=== PATIENT | male | born 1965 | race Caucasian/White ===

== ENCOUNTER → 2017-09-05 08:58 | Outpatient (CLI) | payer OTHER, SELFPAY ==
[2017-09-05 12:02] LABS: Absolute Lymphocyte Count 2.41 X10^3/ul (0.83-4.51); Absolute Neutrophil Count 3.2 X10^3/uL (2.0-7.7); Basophil# 0.03 X10^3/uL; Basophil% 0.5 % (0-1); Eosinophil# 0.07 X10^3/uL; Eosinophils% 1.1 % (0-5); Hematocrit 44.2 % (40-54); Hemoglobin 15.6 g/dl (13.0-16.5); Lymphocyte # 2.41 X10^3/ul (4.0); Lymphocyte % 39.5 % (19-41); Mean Corp Hgb Conc 35.3 g/gl (32-36); Mean Corpuscular Hgb 30.5 pg (27.0-32.0); Mean Corpuscular Volume 86.3 fL (80-94); Mean Platelet Vol. 11.3 fl (6.2-12.0); Monocyte# 0.38 X10^3/uL; Monocyte% 6.2 % (0-10); Neutrophil % 52.5 % (47-70); Platelet Count 193 K/mm3 (150-450); RBC Distribution Width CV 11.9 % (11.6-14.6); RBC Distribution Width SD 37.7 fl (35.1-43.9); Red Blood Count 5.12 M/mm3 (4.6-6.2); White Blood Count 6.1 K/mm3 (4.4-11.0)
[2017-09-05 12:04] LABS: POSITIVE COUNT NO; POSITIVE DIFFERENTIAL NO; POSITIVE MORPHOLOGY NO
[2017-09-05 12:24] LABS: ALB/GLOB Ratio 0.9 RATIO (0.9-2.4); AST(SGOT) 15 U/L (15-37); Alanine Aminotransfer ALT/SGPT 29 U/L (16-61); Albumin, Serum 3.5 g/dL (3.2-5.0); Alkaline Phosphatase 69 U/L (45-117); Anion Gap 8 (5-15); BUN 10 mg/dL (7-18); BUN/Creat Ratio 12.7 RATIO (10-20); Calcium,Total 8.7 mg/dL (8.5-10.1); Chloride 102 mmol/L (98-107); Creatinine, Serum 0.78 mg/dL (0.70-1.30); EST Glomerular Filtration Rate 110 mL/min (>60); Est Glom Filt Rate - Afr Amer 133 mL/min (>60); Globulin 3.7 g/dL (2.2-4.2); Glucose 240 mg/dL (74-106); Potassium 3.9 mmol/L (3.5-5.1); Protein, Total 7.2 g/dL (6.4-8.2); Sodium Level 133 mmol/L (136-145); Thyroid Stim Hormone (TSH) 1.09 uIU/mL (0.358-3.74)
[2017-09-08 09:27] LABS: Hep C Antibodies <0.1 s/co ratio (0.0-0.9)
== END ==
PROVIDERS: Family Provider Family Medicine Geriatric Medicine; PCP Family Medicine Geriatric Medicine; Visit Provider Family Medicine Geriatric Medicine
DX: E11.9 Type 2 diabetes mellitus without complications (principal); E23.6 Other disorders of pituitary gland; I10 Essential (primary) hypertension; Z13.89 Encounter for screening for other disorder
CPT/HCPCS: 36415; 80053; 84403; 84443; 85025; 86803

== ENCOUNTER → 2018-05-14 10:52 | Outpatient (CLI) | payer OTHER, SELFPAY ==
[2018-05-14 13:15] LABS: Absolute Lymphocyte Count 2.72 X10^3/ul (0.83-4.51); Basophil# 0.03 X10^3/uL; Basophil% 0.4 % (0-1); Eosinophil# 0.18 X10^3/uL; Eosinophils% 2.4 % (0-5); Hematocrit 47.1 % (40-54); Hemoglobin 15.6 g/dl (13.0-16.5); Lymphocyte # 2.72 X10^3/ul (4.0); Lymphocyte % 36.4 % (19-41); Mean Corp Hgb Conc 33.1 g/gl (32-36); Mean Corpuscular Hgb 30.4 pg (27.0-32.0); Mean Corpuscular Volume 91.6 fL (80-94); Mean Platelet Vol. 11.5 fl (6.2-12.0); Monocyte# 0.49 X10^3/uL; Monocyte% 6.6 % (0-10); Neutrophil # 4.03 X10^3/uL (2.7-7.7); Neutrophil % 53.9 % (47-70); Platelet Count 218 K/mm3 (150-450); RBC Distribution Width CV 12.4 % (11.6-14.6); RBC Distribution Width SD 41.9 fl (35.1-43.9); Red Blood Count 5.14 M/mm3 (4.6-6.2); White Blood Count 7.5 K/mm3 (4.4-11.0)
[2018-05-14 13:20] LABS: POSITIVE COUNT NO; POSITIVE DIFFERENTIAL NO; POSITIVE MORPHOLOGY NO
[2018-05-14 13:40] LABS: AST(SGOT) 15 U/L (15-37); Alanine Aminotransfer ALT/SGPT 41 U/L (16-61); Albumin, Serum 3.8 g/dL (3.2-5.0); Alkaline Phosphatase 65 U/L (45-117); Anion Gap 9 (5-15); BUN 9 mg/dL (7-18); BUN/Creat Ratio 10.7 RATIO (10-20); Calcium,Total 9.1 mg/dL (8.5-10.1); Chloride 103 mmol/L (98-107); Creatinine, Serum 0.84 mg/dL (0.70-1.30); EST Glomerular Filtration Rate 101 mL/min (>60); Est Glom Filt Rate - Afr Amer 122 mL/min (>60); Glucose 125 mg/dL (74-106); Potassium 4.4 mmol/L (3.5-5.1); Protein, Total 7.8 g/dL (6.4-8.2); Sodium Level 136 mmol/L (136-145); Thyroid Stim Hormone (TSH) 0.99 uIU/mL (0.358-3.74)
== END ==
PROVIDERS: Family Provider Family Medicine Geriatric Medicine; PCP Family Medicine Geriatric Medicine; Visit Provider Family Medicine Geriatric Medicine
DX: E11.9 Type 2 diabetes mellitus without complications (principal); E23.6 Other disorders of pituitary gland; F52.8 Other sexual dysfunction not due to a substance or known physiological condition; I10 Essential (primary) hypertension
CPT/HCPCS: 36415; 80053; 84403; 84443; 85025

== ENCOUNTER → 2018-06-02 14:49 | Outpatient (CLI) | payer OTHER, SELFPAY ==
--- NOTE | 2018-06-02 15:00 | RAD_ITS ---
STUDY: X-RAY CHEST REASON FOR EXAM: Male, 52 years old. Chronic bronchitis TECHNIQUE: PA and lateral chest COMPARISON: None. FINDINGS: The lungs are clear and expanded. Normal cardiomediastinal silhouette, wilbert and pleural margins. No acute osseous or upper abdominal process. RAD/Chest PA and Lateral IMPRESSION: No acute cardiopulmonary process. Electronically Signed: Marvin Shrestha MD at 17:54 EST Tel , Service support ,
== END ==
PROVIDERS: Family Provider Family Medicine Geriatric Medicine; PCP Family Medicine Geriatric Medicine; Referring Provider Family Medicine Geriatric Medicine; Visit Provider Family Medicine Geriatric Medicine
DX: J41.0 Simple chronic bronchitis (principal); R68.83 Chills (without fever)
CPT/HCPCS: 71046; 87633

== ENCOUNTER → 2018-09-22 | Outpatient (CLI) | payer OTHER, SELFPAY ==
[2018-09-22 17:55] LABS: Absolute Lymphocyte Count 1.82 X10^3/ul (0.83-4.51); Absolute Neutrophil Count 3.6 X10^3/uL (2.0-7.7); Basophil# 0.02 X10^3/uL; Basophil% 0.3 % (0-1); Eosinophils% 1.7 % (0-5); Hematocrit 43.4 % (40-54); Hemoglobin 14.5 g/dl (13.0-16.5); Lymphocyte # 1.82 X10^3/ul (4.0); Lymphocyte % 30.4 % (19-41); Mean Corp Hgb Conc 33.4 g/gl (32-36); Mean Corpuscular Hgb 30.2 pg (27.0-32.0); Mean Corpuscular Volume 90.4 fL (80-94); Mean Platelet Vol. 11.9 fl (6.2-12.0); Monocyte# 0.48 X10^3/uL; Neutrophil # 3.55 X10^3/uL (2.7-7.7); Neutrophil % 59.4 % (47-70); POSITIVE COUNT NO; POSITIVE DIFFERENTIAL NO; Platelet Count 214 K/mm3 (150-450); RBC Distribution Width CV 12.4 % (11.6-14.6); RBC Distribution Width SD 40.7 fl (35.1-43.9)
[2018-09-22 17:56] LABS: POSITIVE MORPHOLOGY NO
[2018-09-22 18:06] LABS: ALB/GLOB Ratio 1.1 RATIO (0.9-2.4); AST(SGOT) 19 U/L (15-37); Alanine Aminotransfer ALT/SGPT 39 U/L (16-61); Albumin, Serum 3.7 g/dL (3.2-5.0); Alkaline Phosphatase 59 U/L (45-117); Anion Gap 7 (5-15); BUN 9 mg/dL (7-18); BUN/Creat Ratio 11.3 RATIO (10-20); Calcium,Total 8.6 mg/dL (8.5-10.1); Chloride 105 mmol/L (98-107); EST Glomerular Filtration Rate 108 mL/min (>60); Est Glom Filt Rate - Afr Amer 130 mL/min (>60); Globulin 3.5 g/dL (2.2-4.2); Glucose 106 mg/dL (74-106); Potassium 3.9 mmol/L (3.5-5.1); Protein, Total 7.2 g/dL (6.4-8.2); Sodium Level 137 mmol/L (136-145); Thyroid Stim Hormone (TSH) 1.35 uIU/mL (0.358-3.74)
== END | disposition home or self-care (01) ==
LOC: POLAB3 15:35
PROVIDERS: Family Provider Family Medicine Geriatric Medicine; PCP Family Medicine Geriatric Medicine; Visit Provider Family Medicine Geriatric Medicine
DX: E11.9 Type 2 diabetes mellitus without complications (principal); F52.8 Other sexual dysfunction not due to a substance or known physiological condition; I10 Essential (primary) hypertension
CPT/HCPCS: 36415; 80053; 84403; 84443; 85025

== ENCOUNTER 2019-03-09 08:06 | Emergency (ER) | payer OTHER, SELFPAY ==
[2019-03-09 08:07] VITALS: BP 152/100; PULSE 85; RESP 20; TEMP 36.8; O2SAT 91; BMI 39.3
--- NOTE | 2019-03-09 08:11 | RAD_ITS ---
STUDY: X-RAY CHEST REASON FOR EXAM: Male, 53 years old. Pain following a fall. TECHNIQUE: Single AP portable view of the chest. COMPARISON: Comparison is made with prior study dated May 25, 2018. FINDINGS: The lungs are clear and expanded. There is no demonstrated pleural abnormality. Normal size heart. Normal mediastinum and wilbert. Normal visualized pulmonary arteries. Normal visualized aortic arch and descending thoracic aorta. Normal visualized thoracic spine. Normal visualized ribs, clavicles, and shoulders. There is no demonstrated abnormality of the visualized soft tissue structures of the upper abdomen. RAD/Chest 1 View (Portable) IMPRESSION: Normal x-ray examination of the chest. Electronically Signed: Arnoldo Saldana, at 9:14 EST , Service support ,
--- NOTE | 2019-03-09 08:11 | RAD_ITS ---
STUDY: X-RAY - PELVIS REASON FOR EXAM: Male, 53 years old. History of a 20 foot fall. TECHNIQUE: One view of the pelvis was obtained. COMPARISON: None. FINDINGS: There is a non-specific bowel gas pattern. Normal visualized soft tissue structures. Normal bilateral iliac wings, sacroiliac joints and visualized sacrum. Normal visualized bilateral superior and inferior pubic rami. Normal pubic symphysis. Normal ischial tuberosities. Normal visualized right femoral head. Normal right acetabulum. Normal right hip joint. Normal visualized left femoral head. Normal left acetabulum. Normal left hip joint. RAD/Pelvis 1 or 2 Views IMPRESSION: Normal x-ray examination of the pelvis. Electronically Signed: Arnoldo Saldana, at 9:15 EST , Service support ,
--- NOTE | 2019-03-09 08:14 | NURSING ---
CALLED [facility], SENT TO ER. DR MONTOYA FOR DR SCHILLING
--- NOTE | 2019-03-09 08:20 | ED.VIS.INJ ---
History of Present Illness Chief Complaint: Trauma Informant: Patient Onset: Today Mechanism/Context: Fall, Work Related Quality of Pain: Sharp Current Severity: Severe Maximum Severity: Severe Associated Symptoms: Inability to ambulate Narrative: She is a 53-year-old male with history of diabetes mellitus and hypertension presenting after a fall. Patient was on approximately 20 foot ladder at [employer] where he works when the ladder gave out and he fell to the ground. Patient states he landed on his left foot and then onto his left side. He tried to catch himself with his left hand. Patient is left-hand dominant. He did not hit his head and denies any loss of consciousness. Patient is consent complaining of pain of his foot and wrist. Patient was brought immediately to [facility] emergency room. He did not receive any medications prior to arrival. Patient states he does have chronic low back pain is not having any significant pain at this time. He denies any other complaints. Tetanus Immunization: Unknown Prior similar symptoms: No Past Medical History - Allergies and Home Meds Allergies/Adverse Reactions: Allergies No Known Allergies Allergy (Verified 03/09/19 08:15) Primary Care Physician: Gagan Chin Chi, MD [Primary Care Provider] - Past Medical History: - - Hypertension diabetes mellitus Smoking Status: Never smoker Review of Systems All systems negative except as indicated Musculoskeletal: Reports: Arthralgias, Extremity Pain - Left foot, left wrist Physical Exam Vital Signs/Narrative: Vital Signs Temp Pulse Resp BP Pulse Ox 03/09/19 08:07 98.3 F 85 20 H 152/100 H 91 Inital Vital Signs reviewed: Yes General: Well nourished, Well developed, Obese Head: Normocephalic, Atraumatic Eyes: Perrl, EOMI ENT: TM's clear, No hemotympanum or drainage, No trauma, - - No malocclusion. Negative for: Nasal septal hematoma Neck: Nontender, Full ROM. Negative for: Spinal Tenderness, Paraspinal Tenderness Cardiovascular: Regular rate, Regular rhythm, No murmurs Respiratory: No distress, CTA bilaterally, Chest nontender Abdomen: Soft, Nontender, Nondistended, Normal bowel sounds. Negative for: Guarding, Rebound tenderness Back: Nontender, - - No midline tenderness, no step-off sign Extremeties: Deformity of the left wrist with preserved capillary refill, radial pulse and movement of the hand. Tenderness palpation of the left calcaneus with no obvious deformity, normal DP pulses and capillary refill of the foot. No other obvious bony deformity or trauma Skin: Normal color, No rash. Negative for: Trauma Neurological: Alert, Oriented x3, Cranial nerves II-XII grossly intact, Normal Strength, Normal Sensation, - - GCS 15 Psychological: Normal affect, Agitated - Glascow Coma Scale Eye Opening: Spontaneous Motor: Obeys Commands Verbal: Oriented Coma Scale Total: 15 Diagnostic/Tx/Re-eval - Medical Decision Making He was evaluated for trauma by mechanism. He had approximately 20 foot fall. Patient is hemodynamically stable in the emergency room. He is given IV fluids, pain medication and nausea medication. Chest x-ray and pelvis x-ray are obtained emergently. He does have an obvious deformity of the left wrist. In addition with landing on his left heel there is concern for calcaneus fracture as well as lumbar spine injury. As patient has normal consciousness and no loss of consciousness I believe head CT and C-spine can be performed at [facility]. Patient will be transferred to a trauma center. Patient states he would prefer to go to [facility] emergency room. Discussed with Dr. Pabon who accepts the patient. Patient will go by ground. Patient agreeable with this. ED Disposition - Plan for ED Patient: Disposition: [facility] Diagnosis: Fall, Left wrist injury, Injury of foot, left Referrals: Gagan Chin Chi, MD [Primary Care Provider] -
[2019-03-09] MEDS: 0.9% Normal Saline 1,000 ML 999 ML IV (08:23)
[2019-03-09] MEDS: Ondansetron 4 MG/2 ML Vial IV (08:23)
[2019-03-09] MEDS: morphine 8 MG/ML Syringe IV (08:23)
[2019-03-09] MEDS: HYDROmorphone 1 MG/ML Syringe IV (08:39)
[2019-03-09 08:52] VITALS: BP 156/72; PULSE 88; RESP 20; O2SAT 92
== END 2019-03-09 08:59 | disposition short-term general hospital (02) ==
PROVIDERS: Emergency Provider Emergency Medicine; Family Provider Family Medicine Geriatric Medicine; PCP Family Medicine Geriatric Medicine
DX: S69.92XA Unspecified injury of left wrist, hand and finger(s), initial encounter (principal); S99.922A Unspecified injury of left foot, initial encounter; M21.932 Unspecified acquired deformity of left forearm; W11.XXXA Fall on and from ladder, initial encounter; Y93.9 Activity, unspecified; Y92.9 Unspecified place or not applicable; E66.9 Obesity, unspecified; E11.9 Type 2 diabetes mellitus without complications; M54.5 Low back pain; G89.29 Other chronic pain; I10 Essential (primary) hypertension
CPT/HCPCS: 71045; 72170; 96361; 96374; 96375; 99285; J7030; J2405

== ENCOUNTER → 2019-03-17 16:35 | Outpatient (CLI) | payer OTHER, SELFPAY ==
[2019-03-09 08:07] VITALS: BMI 39.3
== END ==
PROVIDERS: Family Provider Family Medicine Geriatric Medicine; PCP Family Medicine Geriatric Medicine; Visit Provider Family Medicine Geriatric Medicine
DX: F52.8 Other sexual dysfunction not due to a substance or known physiological condition (principal)
CPT/HCPCS: 36415; 84403

== ENCOUNTER → 2019-10-01 16:38 | Outpatient (CLI) | payer OTHER, SELFPAY ==
[2019-10-01 18:08] LABS: Absolute Lymphocyte Count 2.55 X10^3/uL (0.83-4.51); Absolute Neutrophil Count 4.2 X10^3/uL (2.0-7.7); Basophil# 0.05 X10^3/uL; Basophil% 0.7 % (0-1); Eosinophil# 0.14 X10^3/uL; Eosinophils% 1.8 % (0-5); Hematocrit 43.1 % (40-54); Hemoglobin 14.2 g/dL (13.0-16.5); Lymphocyte # 2.55 X10^3/ul (4.0); Lymphocyte % 33.6 % (19-41); Mean Corp Hgb Conc 32.9 g/dL (32-36); Mean Corpuscular Hgb 30.5 pg (27.0-32.0); Mean Corpuscular Volume 92.5 fL (80-94); Mean Platelet Vol. 11.4 fl (6.2-12.0); Monocyte# 0.58 X10^3/uL; Monocyte% 7.7 % (0-10); NRBC Flagged by Analyzer 0 % (0-5); Neutrophil # 4.23 X10^3/uL (2.7-7.7); Neutrophil % 55.8 % (47-70); Platelet Count 216 K/mm3 (150-450); RBC Distribution Width CV 12.3 % (11.6-14.6); RBC Distribution Width SD 42.1 fl (35.1-43.9); Red Blood Count 4.66 M/mm3 (4.6-6.2); White Blood Count 7.6 K/mm3 (4.4-11.0)
[2019-10-01 19:09] LABS: AST(SGOT) 12 U/L (15-37); Alanine Aminotransfer ALT/SGPT 46 U/L (16-61); Albumin, Serum 3.5 g/dL (3.2-5.0); Alkaline Phosphatase 64 U/L (45-117); Anion Gap 8 (5-15); BUN 8 mg/dL (7-18); BUN/Creat Ratio 10.3 RATIO (10-20); Chloride 106 mmol/L (98-107); Creatinine, Serum 0.77 mg/dL (0.70-1.30); EST Glomerular Filtration Rate 111 mL/min (>60); Est Glom Filt Rate - Afr Amer 134 mL/min (>60); Globulin 3.5 g/dL (2.2-4.2); Glucose 169 mg/dL (74-106); PSA,Total - Annual Screen 0.52 ng/mL (0.00-4.00); Potassium 4.2 mmol/L (3.5-5.1); Sodium Level 137 mmol/L (136-145); Thyroid Stim Hormone (TSH) 1.29 uIU/mL (0.358-3.74)
== END ==
PROVIDERS: PCP Family Medicine Geriatric Medicine; Visit Provider Family Medicine Geriatric Medicine
DX: E11.9 Type 2 diabetes mellitus without complications (principal); E23.6 Other disorders of pituitary gland; I10 Essential (primary) hypertension; Z12.5 Encounter for screening for malignant neoplasm of prostate
CPT/HCPCS: 36415; 80053; 84153; 84403; 84443; 85025; G0103

== ENCOUNTER → 2020-03-17 17:51 | Outpatient (CLI) | payer OTHER, SELFPAY | PROVIDERS: PCP Family Medicine Geriatric Medicine; Referring Provider Family Medicine Geriatric Medicine; Visit Provider Family Medicine Geriatric Medicine | DX: R06.89 Other abnormalities of breathing (principal) | CPT/HCPCS: 87633; 87635; C9803; U0003 ==

== ENCOUNTER 2021-05-09 14:33 | Outpatient (CLI) | payer OTHER, SELFPAY ==
[2021-05-09 16:39] LABS: Absolute Lymphocyte Count 1.84 X10^3/uL (0.83-4.51); Absolute Neutrophil Count 2.1 X10^3/uL (2.0-7.7); Basophil# 0.02 X10^3/uL; Basophil% 0.5 % (0-1); Eosinophil# 0.04 X10^3/uL; Eosinophils% 0.9 % (0-5); Hematocrit 46.6 % (40-54); Hemoglobin 15.7 g/dL (13.0-16.5); Lymphocyte # 1.84 X10^3/ul (0.83-4.51); Lymphocyte % 41.9 % (19-41); Mean Corp Hgb Conc 33.7 g/dL (32-36); Mean Corpuscular Hgb 30.1 pg (27.0-32.0); Mean Corpuscular Volume 89.4 fL (80-94); Monocyte# 0.34 X10^3/uL; Monocyte% 7.7 % (0-10); NRBC Flagged by Analyzer 0 % (0-5); Neutrophil # 2.14 X10^3/uL (2.7-7.7); Neutrophil % 48.8 % (47-70); Platelet Count 205 K/mm3 (150-450); RBC Distribution Width CV 11.7 % (11.6-14.6); RBC Distribution Width SD 38.1 fl (35.1-43.9); Red Blood Count 5.21 M/mm3 (4.6-6.2); White Blood Count 4.4 K/mm3 (4.4-11.0)
[2021-05-09 17:00] LABS: ALB/GLOB Ratio 0.8 RATIO (0.9-2.4); AST(SGOT) 16 U/L (15-37); Alanine Aminotransfer ALT/SGPT 36 U/L (16-61); Albumin, Serum 3.6 g/dL (3.2-5.0); Alkaline Phosphatase 89 U/L (45-117); Anion Gap 8 (5-15); BUN 14 mg/dL (7-18); BUN/Creat Ratio 14.7 RATIO (10-20); Calcium,Total 9.4 mg/dL (8.5-10.1); Chloride 98 mmol/L (98-107); Creatinine, Serum 0.95 mg/dL (0.70-1.30); EST Glomerular Filtration Rate 87 mL/min (>60); Est Glom Filt Rate - Afr Amer 105 mL/min (>60); Globulin 4.5 g/dL (2.2-4.2); Glucose 347 mg/dL (74-106); PSA,Total - Annual Screen 0.78 ng/mL (0.00-4.00); Potassium 4.5 mmol/L (3.5-5.1); Protein, Total 8.1 g/dL (6.4-8.2); Sodium Level 135 mmol/L (136-145); Thyroid Stim Hormone (TSH) 1.35 uIU/mL (0.358-3.74)
== END 2021-05-09 23:59 | disposition short-term general hospital (02) ==
LOC: POLAB3 14:35
PROVIDERS: PCP Family Medicine Geriatric Medicine; Visit Provider Family Medicine Geriatric Medicine
DX: E11.9 Type 2 diabetes mellitus without complications (principal); E23.6 Other disorders of pituitary gland; I10 Essential (primary) hypertension; Z12.5 Encounter for screening for malignant neoplasm of prostate
CPT/HCPCS: 36415; 80053; 84153; 84403; 84443; 85025; G0103

== ENCOUNTER → 2021-08-30 | Outpatient (CLI) | payer OTHER, SELFPAY ==
[2021-08-30 11:59] LABS: Absolute Lymphocyte Count 1.95 X10^3/uL (0.83-4.51); Absolute Neutrophil Count 3.5 X10^3/uL (2.0-7.7); Basophil# 0.05 X10^3/uL; Basophil% 0.8 % (0-1); Eosinophil# 0.13 X10^3/uL; Eosinophils% 2.2 % (0-5); Hematocrit 43.3 % (40-54); Hemoglobin 15.1 g/dL (13.0-16.5); Lymphocyte # 1.95 X10^3/ul (0.83-4.51); Lymphocyte % 32.6 % (19-41); Mean Corp Hgb Conc 34.9 g/dL (32-36); Mean Corpuscular Hgb 31.1 pg (27.0-32.0); Mean Corpuscular Volume 89.1 fL (80-94); Mean Platelet Vol. 11.6 fl (6.2-12.0); Monocyte# 0.35 X10^3/uL; Monocyte% 5.9 % (0-10); NRBC Flagged by Analyzer 0 % (0-5); Neutrophil # 3.48 X10^3/uL (2.7-7.7); Neutrophil % 58.2 % (47-70); Platelet Count 207 K/mm3 (150-450); RBC Distribution Width CV 11.6 % (11.6-14.6); RBC Distribution Width SD 37.2 fl (35.1-43.9); Red Blood Count 4.86 M/mm3 (4.6-6.2)
[2021-08-30 12:34] LABS: AST(SGOT) 15 U/L (15-37); Alanine Aminotransfer ALT/SGPT 33 U/L (16-61); Albumin, Serum 3.6 g/dL (3.2-5.0); Alkaline Phosphatase 78 U/L (45-117); Anion Gap 9 (5-15); BUN 9 mg/dL (7-18); BUN/Creat Ratio 9.1 RATIO (10-20); Calcium,Total 8.6 mg/dL (8.5-10.1); Chloride 98 mmol/L (98-107); Creatinine, Serum 0.99 mg/dL (0.70-1.30); EST Glomerular Filtration Rate 83 mL/min (>60); Est Glom Filt Rate - Afr Amer 100 mL/min (>60); Globulin 3.6 g/dL (2.2-4.2); Glucose 459 mg/dL (74-106); Potassium 4.2 mmol/L (3.5-5.1); Protein, Total 7.2 g/dL (6.4-8.2); Sodium Level 134 mmol/L (136-145); Thyroid Stim Hormone (TSH) 1.35 uIU/mL (0.358-3.74)
== END | disposition home or self-care (01) ==
LOC: POLAB3 10:58
PROVIDERS: PCP Family Medicine Geriatric Medicine; Visit Provider Family Medicine Geriatric Medicine
DX: E11.9 Type 2 diabetes mellitus without complications (principal); E23.6 Other disorders of pituitary gland; I10 Essential (primary) hypertension
CPT/HCPCS: 36415; 80053; 84403; 84443; 85025

== ENCOUNTER → 2022-06-07 | Outpatient (CLI) | payer OTHER, SELFPAY ==
[2022-06-07 17:15] LABS: Absolute Lymphocyte Count 2.39 X10^3/uL (0.83-4.51); Absolute Neutrophil Count 3.8 X10^3/uL (2.0-7.7); Basophil# 0.04 X10^3/uL; Basophil% 0.6 % (0-1); Eosinophils% 2.9 % (0-5); Hematocrit 43.6 % (40-54); Hemoglobin 14.5 g/dL (13.0-16.5); Lymphocyte # 2.39 X10^3/ul (0.83-4.51); Lymphocyte % 34.8 % (19-41); Mean Corp Hgb Conc 33.3 g/dL (32-36); Mean Corpuscular Hgb 30.6 pg (27.0-32.0); Mean Platelet Vol. 11.4 fl (6.2-12.0); Monocyte# 0.44 X10^3/uL; Monocyte% 6.4 % (0-10); NRBC Flagged by Analyzer 0 % (0-5); Neutrophil # 3.77 X10^3/uL (2.7-7.7); Platelet Count 203 K/mm3 (150-450); RBC Distribution Width CV 12.1 % (11.6-14.6); RBC Distribution Width SD 40.8 fl (35.1-43.9); Red Blood Count 4.74 M/mm3 (4.6-6.2); White Blood Count 6.9 K/mm3 (4.4-11.0)
[2022-06-07 17:41] LABS: Vitamin D,25 Hydroxy 19.1 ng/mL
[2022-06-07 17:57] LABS: ALB/GLOB Ratio 0.8 RATIO (0.9-2.4); AST(SGOT) 13 U/L (15-37); Alanine Aminotransfer ALT/SGPT 29 U/L (16-61); Albumin, Serum 3.4 g/dL (3.2-5.0); Alkaline Phosphatase 57 U/L (45-117); Anion Gap 9 (5-15); BUN 10 mg/dL (7-18); BUN/Creat Ratio 11.3 RATIO (10-20); Calcium,Total 9.1 mg/dL (8.5-10.1); Chloride 100 mmol/L (98-107); Creatinine, Serum 0.89 mg/dL (0.70-1.30); EST Glomerular Filtration Rate 94 mL/min (>60); Est Glom Filt Rate - Afr Amer 113 mL/min (>60); Globulin 4.1 g/dL (2.2-4.2); Glucose 326 mg/dL (74-106); Potassium 4.2 mmol/L (3.5-5.1); Protein, Total 7.5 g/dL (6.4-8.2); Sodium Level 134 mmol/L (136-145); Thyroid Stim Hormone (TSH) 1.46 uIU/mL (0.358-3.74)
== END | disposition home or self-care (01) ==
LOC: POLAB3 13:14
PROVIDERS: PCP Family Medicine Geriatric Medicine; Visit Provider Family Medicine Geriatric Medicine
DX: E55.9 Vitamin D deficiency, unspecified (principal); R53.83 Other fatigue
CPT/HCPCS: 36415; 80053; 82306; 84443; 85025

== ENCOUNTER → 2023-01-22 | Outpatient (CLI) | payer OTHER, SELFPAY ==
[2023-01-22 11:59] LABS: Absolute Lymphocyte Count 2.24 X10^3/uL (0.83-4.51); Absolute Neutrophil Count 4.1 X10^3/uL (2.0-7.7); Basophil# 0.04 X10^3/uL; Basophil% 0.6 % (0-1); Eosinophil# 0.14 X10^3/uL; Hematocrit 41.4 % (40-54); Hemoglobin 13.8 g/dL (13.0-16.5); Lymphocyte # 2.24 X10^3/ul (0.83-4.51); Lymphocyte % 32.2 % (19-41); Mean Corp Hgb Conc 33.3 g/dL (32-36); Mean Corpuscular Hgb 30.4 pg (27.0-32.0); Mean Corpuscular Volume 91.2 fL (80-94); Mean Platelet Vol. 10.9 fl (6.2-12.0); Monocyte% 5.7 % (0-10); NRBC Flagged by Analyzer 0 % (0-5); Neutrophil # 4.11 X10^3/uL (2.7-7.7); Neutrophil % 59.1 % (47-70); Platelet Count 236 K/mm3 (150-450); RBC Distribution Width CV 11.9 % (11.6-14.6); RBC Distribution Width SD 39.7 fl (35.1-43.9); Red Blood Count 4.54 M/mm3 (4.6-6.2)
[2023-01-22 13:07] LABS: ALB/GLOB Ratio 0.9 RATIO (0.9-2.4); AST(SGOT) 12 U/L (15-37); Alanine Aminotransfer ALT/SGPT 31 U/L (16-61); Albumin, Serum 3.5 g/dL (3.2-5.0); Alkaline Phosphatase 70 U/L (45-117); Anion Gap 6 (5-15); BUN 15 mg/dL (7-18); BUN/Creat Ratio 13.2 RATIO (10-20); Calcium,Total 9.1 mg/dL (8.5-10.1); Chloride 101 mmol/L (98-107); Creatinine, Serum 1.14 mg/dL (0.70-1.30); EST Glomerular Filtration Rate 70 mL/min (>60); Est Glom Filt Rate - Afr Amer 85 mL/min (>60); Glucose 436 mg/dL (74-106); Potassium 4.3 mmol/L (3.5-5.1); Protein, Total 7.5 g/dL (6.4-8.2); Sodium Level 134 mmol/L (136-145)
== END | disposition home or self-care (01) ==
LOC: POLAB3 11:40
PROVIDERS: PCP Family Medicine Geriatric Medicine; Visit Provider Family Medicine Geriatric Medicine
DX: E11.65 Type 2 diabetes mellitus with hyperglycemia (principal); I10 Essential (primary) hypertension
CPT/HCPCS: 36415; 80053; 84443; 85025

== ENCOUNTER → 2023-02-19 | Outpatient (CLI) | payer OTHER, SELFPAY | END | disposition home or self-care (01) | PROVIDERS: PCP Family Medicine Geriatric Medicine; Referring Provider Family Medicine Geriatric Medicine; Visit Provider Family Medicine Geriatric Medicine | DX: R68.83 Chills (without fever) (principal) | CPT/HCPCS: 87635; 87804; 87807 ==

== ENCOUNTER → 2023-05-21 | Outpatient (CLI) | payer OTHER, SELFPAY ==
--- OUTSIDE RECORDS SUMMARY | 2023-05-21 08:47 | XMS RPT_ITS | CCD ---
Author Name Unknown Address [address] [place] [address] Organization [facility] Care Team Providers Care Assembler Name Role Phone AURORA JOE Admitting Unavailable AURORA JOE Attending Unavailable AURORA JOE Primary Care Unavailable Problems Problem Classification Problem Date Documented Da te Episodic/Chronic Immunizations and screening for infectious disease (3 sources) Encounter for screening for other viral diseases; Translations: [Encounter for screening for other viral diseases] Onset: 12-25-2019 Episodic Results Test Name Value Interpretation Reference Range Facil ity Encounters Encounter Date Encounter Type Care Provider Facility Start: 12-25-2019 End: 12-25-2019 Patient encounter procedure AURORA JOE [facility] Payers Date Payer Category Payer Unknown [id number] Unknown [id number] Summary Purpose Family History No Family History Records FoundNo Family History Records FoundNo Family History Records Found Advance Directives No Advanced Directives Records FoundNo Advanced Directives Records FoundNo Advanced Directives Records Found Additional Source Comments (unrecognized sect ion and content) No Status Records FoundNo Status Records FoundNo Status Records Found INFORMATION SOURCE (unrecogn ized section and content) DATE CREATED AUTHOR AUTHOR'S ORGANIZ ATION 12/27/2019 [facility] DATE CREATED AUTHOR AUTHOR'S ORGANIZ ATION 01/04/2020 [facility] FOR RECORDS PERTAINING TO PATIENTS WHO ARE OR HAVE BEEN ENROLLED IN A CHEMICAL DEPENDENCY/SUBSTANCEABUSE PROGRAM, SOME INFORMATION MAY BE OMITTED. This clinical summary was aggregated from multiple sources. Caution should be exercised in using it in the provision of clinical care. This summary normalizes information from multiple sources, and as a consequence, information in this document may materially change the coding, format and clinical context of patient data. In addition, data may be omitted in some cases. CLINICAL DECISIONS SHOULD BE BASED ON THE PRIMARY CLINICAL RECORDS. [employer] [facility]. provides no warranty or guarantee of the accuracy or completeness of information in this document.
[2023-05-21 12:23] LABS: Absolute Lymphocyte Count 1.69 X10^3/uL (0.83-4.51); Absolute Neutrophil Count 4.1 X10^3/uL (2.0-7.7); Basophil# 0.04 X10^3/uL; Basophil% 0.6 % (0-1); Eosinophil# 0.18 X10^3/uL; Eosinophils% 2.8 % (0-5); Hematocrit 39.4 % (40-54); Hemoglobin 12.8 g/dL (13.0-16.5); Lymphocyte # 1.69 X10^3/ul (0.83-4.51); Lymphocyte % 26.3 % (19-41); Mean Corp Hgb Conc 32.5 g/dL (32-36); Mean Corpuscular Hgb 30.2 pg (27.0-32.0); Mean Corpuscular Volume 92.9 fL (80-94); Mean Platelet Vol. 11.7 fl (6.2-12.0); Monocyte# 0.43 X10^3/uL; Monocyte% 6.7 % (0-10); NRBC Flagged by Analyzer 0 % (0-5); Neutrophil # 4.07 X10^3/uL (2.7-7.7); Neutrophil % 63.4 % (47-70); Platelet Count 247 K/mm3 (150-450); RBC Distribution Width CV 12.1 % (11.6-14.6); RBC Distribution Width SD 41.5 fl (35.1-43.9); Red Blood Count 4.24 M/mm3 (4.6-6.2); White Blood Count 6.4 K/mm3 (4.4-11.0)
[2023-05-21 13:04] LABS: AST(SGOT) 16 U/L (15-37); Alanine Aminotransfer ALT/SGPT 33 U/L (16-61); Albumin, Serum 3.6 g/dL (3.2-5.0); Alkaline Phosphatase 53 U/L (45-117); Anion Gap 7 (5-15); BUN 12 mg/dL (7-18); BUN/Creat Ratio 13.5 RATIO (10-20); Calcium,Total 9.9 mg/dL (8.5-10.1); Chloride 108 mmol/L (98-107); Cholesterol 145 mg/dL (200); Creatinine, Serum 0.89 mg/dL (0.70-1.30); EST Glomerular Filtration Rate 93 mL/min (>60); Est Glom Filt Rate - Afr Amer 112 mL/min (>60); Globulin 3.5 g/dL (2.2-4.2); Glucose 195 mg/dL (74-106); High Density Lipoprotein 50 mg/dL; PSA,Total - Annual Screen 0.93 ng/mL (0.00-4.00); Potassium 4.6 mmol/L (3.5-5.1); Protein, Total 7.1 g/dL (6.4-8.2); Sodium Level 140 mmol/L (136-145); Thyroid Stim Hormone (TSH) 1.39 uIU/mL (0.358-3.74); Triglycerides 68 mg/dL; Very Low Density Lipoprotein 14 mg/dL (5-40)
[2023-05-21 13:35] LABS: Hemoglobin A1c 8.9 % (3.8-5.6)
== END | disposition home or self-care (01) ==
LOC: BIMLAB 08:18
PROVIDERS: PCP Nurse Practitioner; Referring Provider Nurse Practitioner; Visit Provider Nurse Practitioner
DX: Z00.00 Encounter for general adult medical examination without abnormal findings (principal); E11.9 Type 2 diabetes mellitus without complications; E78.5 Hyperlipidemia, unspecified; E66.9 Obesity, unspecified; Z12.5 Encounter for screening for malignant neoplasm of prostate
CPT/HCPCS: 36415; 80053; 80061; 82043; 83036; 84153; 84439; 84443; 85025; G0103

== ENCOUNTER → 2023-06-18 | Outpatient (CLI) | payer OTHER, SELFPAY ==
--- NOTE | 2023-06-18 08:00 | ECHOCS_ITS ---
Reason For Study: Dyspnea/SOB Procedure This was a 2D Doppler, Color Flow transthoracic echocardiogram. The study was technically difficult. Contrast injection was performed. Exam performed in department. Left Ventricle Normal LV size. The estimated ejection fraction is 55 %. No evidence for diastolic dysfunction. No regional wall motion abnormalities noted. Right Ventricle Normal RV size. Normal systolic function. Atria Normal left atrium. Normal right atrium. No doppler evidence for ASD. Mitral Valve There is moderate mitral annular calcification. There is no mitral valve stenosis. No mitral valve insufficiency. Tricuspid Valve There is no tricuspid stenosis. No tricuspid valve insufficiency. Unable to estimate RV systolic pressure due to inadequate jet, pulmonary artery pressure probably normal. Aortic Valve Trisinus/trileaflet aortic valve. There is no aortic stenosis. No aortic valve insufficiency. Pulmonic Valve There is no pulmonic valvular stenosis. Trivial pulmonic valve insufficiency. Great Vessels Normal aortic root. Pericardium/Pleural No pericardial effusion. Medication 20 gauge I.V. with prn adaptor inserted into right arm. Diluted definity 2ml given slow IV push to enhance endocardial definition. MMode/2D Measurements & Calculations LVIDd: 4.6 cm IVSd: 0.98 cm Ao root diam: 4.0 cm LVIDs: 3.6 cm LVPWd: 1.1 cm LA dimension: 4.3 cm RVDd: 4.5 cm FS: 22.2 % LAV(MOD-bp): 51.0 ml LVAd ap4: 37.0 cm2 SV(MOD-sp4): 70.7 ml LAV(MOD-bp) Indexed: 20.9 ml/m2 LVLd ap4: 8.5 cm LAV(MOD-sp2): 66.1 ml EDV(MOD-sp4): 131.2 ml LAV(MOD-sp4): 41.3 ml EDV(sp4-el): 137.3 ml LVAs ap4: 23.5 cm2 LVLs ap4: 7.4 cm ESV(MOD-sp4): 60.5 ml ESV(sp4-el): 63.2 ml EF(MOD-sp4): 53.9 % EF(sp4-el): 53.9 % SV(sp4-el): 74.0 ml LA A4 area: 15.8 cm2 RA A4 area: 14.6 cm2 TAPSE: 1.8 cm Time Measurements MV dec time: 0.29 sec Doppler Measurements & Calculations MV E max henrry: 80.3 cm/sec Lat Peak E' Henrry: 11.2 cm/sec Med Peak E' Henrry: 6.8 cm/sec MV A max henrry: 96.1 cm/sec E/E' lat: 7.2 E/E' med: 11.8 MV E/A: 0.84 MV V2 max: 115.3 cm/sec MV P1/2t max henrry: 85.7 cm/sec Ao V2 max: 134.0 cm/sec MV max P.3 mmHg MV P1/2t: 97.5 msec Ao max P.2 mmHg MV V2 mean: 59.2 cm/sec Ao V2 mean: 95.3 cm/sec MV mean P.6 mmHg MV dec slope: 257.4 cm/sec2 Ao mean P.1 mmHg MV V2 VTI: 34.8 cm MVA(P1/2t): 2.3 cm2 Ao V2 VTI: 26.0 cm AV (velocity ratio): 0.92 LV V1 max: 114.1 cm/sec PA V2 max: 97.4 cm/sec LV V1 max P.2 mmHg LV V1 mean P.7 mmHg LV V1 mean: 77.4 cm/sec LV V1 VTI: 24.0 cm ECHO/Echo Complete W/ Contrast Interpretation Summary The estimated ejection fraction is 55 %. No evidence for diastolic dysfunction. Ordering Physician: Violetta Hardwick Referring Physician: Violetta Hardwick Performed By: Nils Quinonez [facility]
--- OUTSIDE RECORDS SUMMARY | 2023-06-18 08:21 | XMS RPT_ITS | CCD ---
Author Name Unknown Address [address] [place] [address] Organization [facility] Care Team Providers Care Firer Tunnel Kiln Name Role Phone AURORA JOE Admitting Unavailable [...] End: 12-25-2019 Patient encounter procedure AURORA JOE [facility] Payers Date Payer Category Payer Unknown [id number] Unknown [id number] Summary Purpose Family History No Family History [...] DATE CREATED AUTHOR AUTHOR'S ORGANIZ ATION 12/27/2019 [facility] DATE CREATED AUTHOR AUTHOR'S ORGANIZ ATION 01/04/2020 [facility] FOR RECORDS PERTAINING TO PATIENTS WHO ARE [...] BE BASED ON THE PRIMARY CLINICAL RECORDS. [facility]. provides no warranty or guarantee of the accuracy or completeness of information in this document.
== END | disposition home or self-care (01) ==
PROVIDERS: PCP Nurse Practitioner; Referring Provider Nurse Practitioner; Visit Provider Nurse Practitioner
DX: R06.00 Dyspnea, unspecified (principal); R60.0 Localized edema
CPT/HCPCS: 93306; Q9957; A4216; C8929

== ENCOUNTER → 2023-11-29 | Outpatient (CLI) | payer OTHER, SELFPAY ==
[2023-11-29 17:41] LABS: Absolute Lymphocyte Count 2.61 X10^3/uL (0.83-4.51); Absolute Neutrophil Count 4.9 X10^3/uL (2.0-7.7); Basophil# 0.09 X10^3/uL; Basophil% 1.1 % (0-1); Eosinophil# 0.25 X10^3/uL; Hematocrit 39.2 % (40-54); Hemoglobin 13.1 g/dL (13.0-16.5); Lymphocyte # 2.61 X10^3/ul (0.83-4.51); Lymphocyte % 30.9 % (19-41); Mean Corp Hgb Conc 33.4 g/dL (32-36); Mean Corpuscular Hgb 30.5 pg (27.0-32.0); Mean Corpuscular Volume 91.2 fL (80-94); Mean Platelet Vol. 11.7 fl (6.2-12.0); Monocyte# 0.61 X10^3/uL; Monocyte% 7.2 % (0-10); NRBC Flagged by Analyzer 0 % (0-5); Neutrophil # 4.85 X10^3/uL (2.7-7.7); Neutrophil % 57.3 % (47-70); Platelet Count 279 K/mm3 (150-450); RBC Distribution Width CV 12.1 % (11.6-14.6); RBC Distribution Width SD 40.2 fl (35.1-43.9); White Blood Count 8.5 K/mm3 (4.4-11.0)
[2023-11-29 17:58] LABS: AST(SGOT) 17 U/L (15-37); Alanine Aminotransfer ALT/SGPT 36 U/L (16-61); Albumin, Serum 3.5 g/dL (3.2-5.0); Alkaline Phosphatase 55 U/L (45-117); Anion Gap 7 (5-15); BUN 18 mg/dL (7-18); BUN/Creat Ratio 15.3 RATIO (10-20); Calcium,Total 9.8 mg/dL (8.5-10.1); Chloride 109 mmol/L (98-107); Creatinine, Serum 1.18 mg/dL (0.70-1.30); EST Glomerular Filtration Rate 67 mL/min (>60); Est Glom Filt Rate - Afr Amer 81 mL/min (>60); Globulin 3.6 g/dL (2.2-4.2); Glucose 128 mg/dL (74-106); Lipase 48 U/L (13-75); Potassium 4.7 mmol/L (3.5-5.1); Protein, Total 7.1 g/dL (6.4-8.2); Sodium Level 140 mmol/L (136-145)
== END | disposition home or self-care (01) ==
LOC: MTLAB 14:52
PROVIDERS: PCP Nurse Practitioner; Referring Provider Nurse Practitioner; Visit Provider Nurse Practitioner
DX: R14.0 Abdominal distension (gaseous) (principal)
CPT/HCPCS: 36415; 80053; 83690; 85025

== ENCOUNTER → 2023-12-13 | Outpatient (CLI) | payer OTHER, SELFPAY ==
--- NOTE | 2023-12-13 13:24 | CT_ITS ---
HISTORY: hernia/ rectus diastasis/ abdominal pain. TECHNIQUE: Helically acquired images were obtained of the abdomen and pelvis after the intravenous administration of 100 mL Isovue-300. Oral contrast also administered. A radiation dose optimization technique was used for this scan. 521 images. COMPARISON: None. FINDINGS: LOWER CHEST: Lung bases clear. BOWEL: Bowel including appendix nondilated. No focal pericolonic inflammatory change observed. PERITONEUM: No significant ascites. LIVER: No enhancing mass. Mild fatty infiltration. GALLBLADDER/BILIARY TREE: Gallbladder present. SPLEEN/PANCREAS: Homogeneous and nonenlarged. ADRENAL GLANDS/KIDNEYS: Unremarkable. VESSELS: No abdominal aortic aneurysm. Mild atherosclerosis. PELVIC ORGANS: Unremarkable. ABDOMINAL WALL: Mild rectus diastasis with tiny fat-containing umbilical hernia. Mild left scrotal hydrocele. BONES: Old left lower rib fractures. Old left L1 transverse process fracture. Chronic mild L2, L3, L4 compression fractures. Bilateral L5 spondylolysis with grade [address]/Abdomen/Pelvis WITH Contrast IMPRESSION: Mild rectus diastasis with tiny fat-containing umbilical hernia. Mild left scrotal hydrocele. Hepatic steatosis. Electronically Signed: Sridevi Martinez MD at 13:58 EDT ,
== END | disposition home or self-care (01) ==
LOC: CT 13:23
PROVIDERS: PCP Nurse Practitioner; Referring Provider Nurse Practitioner; Visit Provider Nurse Practitioner
DX: M62.08 Separation of muscle (nontraumatic), other site (principal)
CPT/HCPCS: 74177; Q9967

== ENCOUNTER → 2024-01-15 | Outpatient (CLI) | payer OTHER, SELFPAY ==
--- NOTE | 2024-01-15 10:47 | RAD_ITS ---
STUDY: X-RAY - ABDOMEN/PELVIS REASON FOR EXAM: Male, 58 years old. Pain and bloating. TECHNIQUE: AP supine and decubitus views of the abdomen and pelvis on 6 images. COMPARISON: Pelvis x-ray dated March 09, 2019 FINDINGS: Atelectasis at both bases. Normal bowel gas pattern with air seen to the rectum. Moderate amount of feces in the colon. The visualized liver, spleen and kidneys are grossly normal in size and morphology. Normal soft tissue structures. Normal visualized osseous structures. RAD/Abd Inc Decub and/or Erect IMPRESSION: No acute abnormality identified. Electronically Signed: Henrry Westbrook MD at 15:22 EDT ,
[2024-01-15 13:01] LABS: CRP 3.25 mg/L (0.0-3.0)
== END | disposition home or self-care (01) ==
LOC: MTLAB 10:43
PROVIDERS: PCP Nurse Practitioner; Referring Provider Internal Medicine Gastroenterology; Visit Provider Internal Medicine Gastroenterology
DX: R14.0 Abdominal distension (gaseous) (principal); R19.7 Diarrhea, unspecified
CPT/HCPCS: 36415; 74019; 82784; 83516; 86140; 86255

== ENCOUNTER → 2024-05-20 | Outpatient (CLI) | payer OTHER, SELFPAY ==
[2024-05-20 17:09] LABS: ALB/GLOB Ratio 0.9 RATIO (0.9-2.4); AST(SGOT) 17 U/L (15-37); Alanine Aminotransfer ALT/SGPT 40 U/L (16-61); Albumin, Serum 3.6 g/dL (3.2-5.0); Alkaline Phosphatase 71 U/L (45-117); Anion Gap 7 (5-15); BUN 15 mg/dL (7-18); BUN/Creat Ratio 12.7 RATIO (10-20); Calcium,Total 9.6 mg/dL (8.5-10.1); Chloride 101 mmol/L (98-107); Cholesterol 198 mg/dL (200); Creatinine, Serum 1.18 mg/dL (0.70-1.30); EST Glomerular Filtration Rate 67 mL/min (>60); Est Glom Filt Rate - Afr Amer 81 mL/min (>60); Globulin 3.9 g/dL (2.2-4.2); Glucose 188 mg/dL (74-106); High Density Lipoprotein 43 mg/dL; Potassium 4.2 mmol/L (3.5-5.1); Protein, Total 7.5 g/dL (6.4-8.2); Sodium Level 135 mmol/L (136-145); Triglycerides 212 mg/dL; Very Low Density Lipoprotein 42 mg/dL (5-40)
== END | disposition home or self-care (01) ==
LOC: BIMLAB 14:30
PROVIDERS: PCP Internal Medicine; Referring Provider Internal Medicine; Visit Provider Internal Medicine
DX: E11.40 Type 2 diabetes mellitus with diabetic neuropathy, unspecified (principal); I10 Essential (primary) hypertension
CPT/HCPCS: 36415; 80053; 80061

== ENCOUNTER → 2024-10-12 | Outpatient (CLI) | payer OTHER, SELFPAY ==
[2024-10-12 12:11] LABS: Absolute Lymphocyte Count 1.87 X10^3/uL (0.83-4.51); Absolute Neutrophil Count 4.2 X10^3/uL (2.0-7.7); Basophil# 0.05 X10^3/uL; Basophil% 0.7 % (0-1); Eosinophil# 0.18 X10^3/uL; Eosinophils% 2.7 % (0-5); Hematocrit 38.9 % (40-54); Hemoglobin 13.6 g/dL (13.0-16.5); Lymphocyte # 1.87 X10^3/ul (0.83-4.51); Lymphocyte % 27.9 % (19-41); Mean Corpuscular Volume 88.6 fL (80-94); Mean Platelet Vol. 11.5 fl (6.2-12.0); Monocyte# 0.42 X10^3/uL; Monocyte% 6.3 % (0-10); NRBC Flagged by Analyzer 0 % (0-5); Neutrophil # 4.16 X10^3/uL (2.7-7.7); Neutrophil % 62.1 % (47-70); Platelet Count 237 K/mm3 (150-450); RBC Distribution Width CV 11.9 % (11.6-14.6); RBC Distribution Width SD 38.5 fl (35.1-43.9); Red Blood Count 4.39 M/mm3 (4.6-6.2); White Blood Count 6.7 K/mm3 (4.4-11.0)
[2024-10-12 13:04] LABS: ALB/GLOB Ratio 1.3 RATIO (0.9-2.4); AST(SGOT) 18 U/L (<=37); Alanine Aminotransfer ALT/SGPT 23 U/L (<=46); Alkaline Phosphatase 70 U/L (40-129); Anion Gap 12 (5-15); BUN 16 mg/dL (4-19); BUN/Creat Ratio 15.8 RATIO (10-20); Calcium,Total 9.7 mg/dL (7.6-11.0); Carbon Dioxide 24.4 mmol/L (21.0-32.0); Chloride 99 mmol/L (98-108); EST Glomerular Filtration Rate 87 (>60); Globulin 3.1 g/dL (2.2-4.2); Glucose 257 mg/dL (70-99); PSA,Total - Annual Screen 1.04 ng/mL (0.02-4.00); Potassium 4.6 mmol/L (3.3-5.1); Protein, Total 7.1 g/dL (5.9-8.4); Sodium Level 135 mmol/L (133-145); Total Bilirubin 0.45 mg/dL (0.00-1.30)
== END | disposition home or self-care (01) ==
LOC: BIMLAB 10:01
PROVIDERS: PCP Internal Medicine; Referring Provider Internal Medicine; Visit Provider Internal Medicine
DX: I10 Essential (primary) hypertension (principal); E11.40 Type 2 diabetes mellitus with diabetic neuropathy, unspecified; Z12.5 Encounter for screening for malignant neoplasm of prostate
CPT/HCPCS: 36415; 80053; 84153; 85025; G0103

== ENCOUNTER → 2025-02-11 | Outpatient (CLI) | payer OTHER, SELFPAY ==
[2025-02-11 18:26] LABS: D-Dimer Quantitative (DVT/PE) 8.63 FEU/ug/m (0.27-0.49)
== END | disposition home or self-care (01) ==
PROVIDERS: PCP Internal Medicine; Referring Provider Physician Assistant; Visit Provider Physician Assistant
DX: M79.89 Other specified soft tissue disorders (principal)
CPT/HCPCS: 36415; 85379

== ENCOUNTER 2025-02-12 08:57 | Emergency (ER) | payer OTHER, SELFPAY ==
[2025-02-12 08:58] VITALS: BP 194/103; PULSE 87; RESP 18; TEMP 36.8; O2SAT 99; BMI 40.1
--- NOTE | 2025-02-12 09:30 | EX.ED.DYSGE1 ---
HPI History of Present Illness Chief Complaint: Shortness of Breath Narrative Narrative: Patient is a 59-year-old male who is presenting today to have CTA to rule out PE. Patient has noted extensive DVT to left lower extremity. Patient was started on Eliquis last night. Patient took Eliquis tablet last night and today. Patient had a outpatient DVT study in the vascular lab. Patient was recommended to come to the ER by internal medicine physician Storm TORRES who is one of the partners of the patient's PCP. Patient has no chest pain or shortness of breath. Patient has no risk factors for DVT at this time. Patient had traumatic injury over 7 years ago, nothing recent. No recent traveling. 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 Patient has no chest pain, shortness of breath, fever, chills, no other acute complaints. Patient has had swelling and pain to the left leg. Patient tells me that his DVT is from his left knee up into his left groin. Patient was sent to the ER to rule out PE by Dr. Collins REVIEW OF SYSTEMS: Unless otherwise stated in this report the patient's positive and negative responses for review of systems for constitutional, eyes, ENT, cardiovascular, respiratory, gastrointestinal, neurological, , musculoskeletal, and integument systems and related systems to the presenting problem are either stated in the history of present illness or were not pertinent or were negative for the symptoms and/or complaints related to the presenting medical problem. Vital signs reviewed and patient is not hypoxic. Patient was initially hypertensive, vital signs will be followed. General: The patient appears well and in no apparent distress. Patient is resting comfortably on cart. Not toxic, lethargic, or listless. Skin: Warm, dry, no pallor noted. There is no rash noted. Head: Normocephalic, atraumatic Eye: Normal conjunctiva, no drainage, EOMI. PERRL. Ears, Nose, Mouth, and Throat: oral mucosa is moist. Nares patent. Mouth without vesicles. Cardiovascular: Regular Rate and Rhythm, no murmurs, gallops, or rubs Respiratory: Patient is in no distress, no accessory muscle use, lungs are clear to auscultation, no wheezing, rales or rhonchi Back: non-tender, no CVA tenderness bilaterally to percussion. NO CTLS midline or paraspinal tenderness to palpation. GI: Soft, obese, no tenderness to palpation, no masses appreciated. No rebound, guarding, or rigidity noted. Musculoskeletal: The patient has full range of motion of all extremities and joints with no difficulty except the left lower extremity. Patient does have pain in the posterior aspect of left posterior thigh, popliteal fossa, and calf. Patient does have 2+ pitting edema to left lower extremity compared to the right. Patient's left leg is half a size larger compared to the right. Patient has no motor, no sensory deficits. Neurological: A&O x4, normal speech, no focal neurological deficits. Psychiatric: Cooperative [facility] Medical History Anxiety and depression Hernia High cholesterol Back pain Neck pain Limb weakness Diabetes SOB (shortness of breath) Hypertension Home Medications ?Medication ?Instructions ?Recorded ?Last Taken ?Type lancets (Accu-Chek Softclix #100 ea 05/23/23 Unknown Rx Lancets) blood sugar diagnostic (Relion #100 ea 05/28/23 Unknown Rx Confirm-Micro strips) losartan 100 mg tablet 100 mg PO DAILY 90 days #90 tabs 07/14/24 Unknown Rx atorvastatin 40 mg tablet mg PO QDAY 10/12/24 Unknown History glimepiride 4 mg tablet 4 mg PO BID 3 months #180 tabs 10/12/24 Unknown Rx metformin 1,000 mg tablet 1,000 mg PO BID 3 months #180 tabs 10/12/24 Unknown Rx pantoprazole 40 mg tablet,delayed 40 mg PO DAILY #90 tabs 11/30/24 Unknown Rx release (Protonix) hydrochlorothiazide 50 mg tablet 50 mg PO DAILY #90 tabs 12/31/24 Unknown Rx albuterol 90 mcg-budesonide 80 2 inh inhalation ONCE #10.7 grams 02/11/25 Unknown Rx mcg/actuation HFA aerosol inhaler (Airsupra) apixaban 5 mg tablet (Eliquis) 5 mg PO BID #14 tabs 02/11/25 Unknown Rx apixaban 5 mg (74 tabs) tablets in See Rx Instructions PO PER PKG DIR 02/12/25 Unknown Rx a dose pack (Eliquis DVT-PE Treat #74 tabs 30D Start) Allergy/AdvReac Type Severity Reaction Status Date / Time No Known Allergies Allergy Verified 02/11/25 14:54 Surgical History H/O hernia repair H/O left wrist surgery Social History Smoking Status: Never smoker alcohol intake: current alcohol intake frequency: holidays/special occasions only substance use type: does not use what type of physical activity do you participate in: bicycling frequency: 3-4 times per week do you feel safe at home: Yes ROS ROS ED ROS Narrative REVIEW OF SYSTEMS: Unless otherwise stated in this report the patient's positive and negative responses for review of systems for constitutional, eyes, ENT, cardiovascular, respiratory, gastrointestinal, neurological, , musculoskeletal, and integument systems and related systems to the presenting problem are either stated in the history of present illness or were not pertinent or were negative for the symptoms and/or complaints related to the presenting medical problem. EXAM Physical Exam Narrative Exam Narrative: Vital signs reviewed and patient is not hypoxic. General: The patient appears well and in no apparent distress. Patient is resting comfortably on cart. Not toxic, lethargic, or listless. Skin: Warm, dry, no pallor noted. There is no rash noted. Head: Normocephalic, atraumatic Eye: Normal conjunctiva, no drainage, EOMI. PERRL. Ears, Nose, Mouth, and Throat: oral mucosa is moist. Nares patent. Mouth without vesicles. Cardiovascular: Regular Rate and Rhythm, no murmurs, gallops, or rubs Respiratory: Patient is in no distress, no accessory muscle use, lungs are clear to auscultation, no wheezing, rales or rhonchi Back: non-tender, no CVA tenderness bilaterally to percussion. NO CTLS midline or paraspinal tenderness to palpation. GI: Soft, no tenderness to palpation, no masses appreciated. No rebound, guarding, or rigidity noted. Musculoskeletal: The patient has full range of motion of all extremities and joints with no difficulty. Patient has no motor, no sensory deficits. Neurological: A&O x4, normal speech, no focal neurological deficits. Psychiatric: Cooperative Const Vital Signs: 02/12/25 08:58 02/12/25 09:27 02/12/25 09:27 Temperature 98.2 F Temperature Source Oral Pulse Rate 87 Respiratory Rate 18 Respiratory Effort Short of Breath Respiratory Depth Normal Respiratory Pattern Normal Blood Pressure 194/103 H Blood Pressure Mean 133 Pulse Ox 99 Oxygen Delivery Method Room Air Room Air Room Air 02/12/25 10:41 02/12/25 11:03 02/12/25 15:50 Temperature 98.7 F Temperature Source Pulse Rate 79 68 74 Respiratory Rate 20 H 16 19 H Respiratory Effort Respiratory Depth Respiratory Pattern Blood Pressure 160/98 H 167/96 H 177/99 H Blood Pressure Mean 118 119 125 Pulse Ox 99 98 96 Oxygen Delivery Method Room Air Room Air MDM MDM MDM Narrative Medical decision making narrative: Patient seen and examined: Patient may have IV, cardiac workup, CTA of the chest to rule out PE Differential diagnosis includes but is not limited to: PE, hypertension, ACS, electrolyte abnormality, left leg DVT Relevant laboratory interpretation: Initial troponin was 24, repeat troponin was Radiological studies: Ultrasound report showed extensive DVT from the left knee up into the left groin, I do not have a copy of the report yet, CTA of the chest showed acute pulmonary embolism on the right, equivocal right heart strain, severe coronary artery disease atherosclerosis disease. PE is present in the interlobar pulmonary artery extending into the segmental pulmonary arteries in the right lobe Reevaluation: Patient was updated on the CT report, slightly elevated troponin at 24 and is aware this will be repeated. Patient blood pressure has improved. Patient tell me that he has a follow-up appointment scheduled already on Saturday with vascular surgery to discuss his clot. Patient has already started Eliquis yesterday and today, Dr. Vaca has called in a prescription for Eliquis starter pack into the pharmacy already Preliminary report of patient's ultrasound on his left leg shows extensive DVT from the left popliteal vein, left femoral vein, left common femoral vein, left external iliac vein and left profunda vein 1210 I have spoken to internal medicine physician who sent the patient in, Dr. Storm Vaca. Patient's troponin has improved from 24-23. Patient CT shows equivocal right heart strain. When I spoke to the radiologist on the phone, Dr Umanzor, he stated that there does not really show any signs of right heart strain, there is some straightening or bowing of the if ventricular septum, but otherwise no signs of right heart strain and stated it was equivocal. 1220 I have spoken to the video surveillance technician, Dr. Mcwilliams. We also discussed patient's multiple comorbidities of obesity, diabetes, cholesterol, hypertension, and also patient's age, male. Patient needs a follow-up with cardiology as well, last time patient had a stress echocardiogram was over 10 to 20 years ago. Patient was told that he had a MO when he was younger, but stated it was secondary to drinking 2 L of Mountain Dew a day. We do not have vascular surgery on-call today, but secondary to this equivocal finding, I am ordering a stat echo in the ER to make sure there is no acute obvious signs of right heart strain which she does not appear to be on CT finding and with the radiologist told me on the phone. 2D ECHO showed no significant right ventricular heart strain. A copy of the report was given to patient Dr Mcwilliams read the echocardiogram. I discussed patient 10 minutes of discharge on the follow-up plan. Patient will follow-up with his PCP, patient knows that he needs to follow-up with cardiology along with following up with surgeon/GI surgeon for the swelling to his abdomen to rule out diastasis versus ventral wall hernia. Patient is on Eliquis, patient took Eliquis last night and today. has sent a prescription for Eliquis to the store. Patient and his mother were extremely thankful and happy from the time spent at bedside with myself and nursing staff. Patient was educated at length on patient's left leg DVT, pulmonary-ism, and right heart strain versus not. Patient second troponin improved. No question of discharge Critical care time 45 minutes exclusive from separate billable procedures that were performed. The following was considered in the determination of critical care but not limited to the level of medical decision making, intensive cardiac and/or respiratory monitoring, frequent vital sign monitoring, evaluation of laboratory studies, evaluation of radiographic studies, oxygen monitoring, and constant monitoring and speaking to family at bedside Social barriers to healthcare: There are no food insecurities, there is no issue with transportation, there are no insurance barriers Lab Data Attestation: I reviewed the patient's lab results. Labs: Laboratory Results - last 24 hr 02/12/25 02/12/25 09:25 11:05 WBC 7.8 RBC 4.16 L Hgb 13.0 Hct 37.8 L MCV 90.9 MCH 31.3 MCHC 34.4 RDW Std Deviation 39.8 RDW Coeff of Leonel 11.9 Plt Count 236 MPV 11.7 Immature Gran % (Auto) 0.500 Neut % (Auto) 69.7 Lymph % (Auto) 19.5 Arthur % (Auto) 6.7 Eos % (Auto) 3.0 Baso % (Auto) 0.6 Absolute Neuts (auto) 5.4 Absolute Lymphs (auto) 1.52 Nucleated RBC % 0 PT 15.4 H INR 1.2 APTT 32.2 Sodium 140 Potassium 4.8 Chloride 106 Carbon Dioxide 24.1 Anion Gap 10 BUN 20 H Creatinine 1.11 Estim Creat Clear Calc 103.20 Est GFR (MDRD) Non-Af 76 BUN/Creatinine Ratio 17.7 Glucose 188 H Calcium 9.0 Magnesium 2.0 Troponin T High Sens 24 H Troponin T Hi Sens 2 Hr 23 H NT pro BNP II 119 Radiography Chest X-Ray - ED: 1 View and Read by ED Physician (Chest x-ray shows no acute cardiopulmonary disease, no infiltrate, no effusion) Diagnostic Testing: Clinical Impression(s) from Imaging Studies Chest X-Ray 02/12/25 09:35 IMPRESSION: No acute abnormality. Reading Location: [id number] Chest CTA 02/12/25 09:47 IMPRESSION: 1. Acute pulmonary embolus on the right. Equivocal RV strain. 2. Severe coronary artery atherosclerotic disease. Red Alert: Pulmonary embolus The critical findings in the findings and impression above were relayed directly by me by telephone to Barrie Delgado on 02/12/2025 at 11:20 am with readback verification. Reading Location: [facility] Echocardiogram 02/12/25 12:19 Interpretation Summary Mild concentric left ventricular hypertrophy. The left ventricular ejection fraction is 65 %. Stage 1 diastolic dysfunction. There is Mild focal posterior mitral annular calcification. Mildly dilated aortic root. Ordering Physician: Barrie Delgado Referring Physician: Kana Avelar Performed By: Siobhan Garcia RCS Initial EKG: Attestation: I personally reviewed and interpreted this EKG as follows: (You may alternate Tylenol and either Motrin, Advil, ibuprofen every 4 hours as needed for pain/fever. Take anti-inflammatories with food or drink to help buffer the medication. MAX dose of Tylenol is 3000 mg a day. MAX dose of Motrin, Advil, ibuprofen is 2400 mg a day. Patient seen and examined: D) Discharge Plan Triage Chief Complaint: Shortness of Breath Other Complaint: Lower Extremity Injury ED Provider: Barrie Delgado Dx/Rx/DC Orders Clinical Impression: Pulmonary embolism of right lung, Acute deep vein thrombosis (DVT) of left lower extremity Instructions: Pulmonary Embolism, ED Deep Vein Thrombosis (DVT) Prescriptions: No Action atorvastatin 40 mg tablet PO QDAY Patient Comments: TAKE 1 TABLET BY MOUTH EVERY DAY glimepiride 4 mg tablet 4 mg PO BID 90 Days Qty: 180 1RF metformin 1,000 mg tablet 1,000 mg PO BID 90 Days Qty: 180 1RF Airsupra 90-80 mcg/actuation HFA aerosol inhaler 2 inh inhalation ONCE Qty: 10.7 0RF Rx Instructions: as a single dose; may repeat up to 6 doses per day (12 inhalations) Eliquis 5 mg tablet 5 mg PO BID Qty: 14 0RF Eliquis DVT-PE Treat 30D Start 5 mg (74 tabs) tablets,dose pack See Rx Instructions PO PER PKG DIR Qty: 74 0RF Rx Instructions: PO PER PKG DIR (DME) lancets [Accu-Chek Softclix Lancets] Misc See Rx Instructions .Route Qty: 100 0RF Rx Instructions: As directed (DME) Relion Confirm-Micro Strip See Rx Instructions .Route Qty: 100 0RF Rx Instructions: As directed losartan 100 mg tablet 100 mg PO DAILY 90 Days Qty: 90 2RF pantoprazole [Protonix] 40 mg tablet,delayed release (DR/EC) 40 mg PO DAILY Qty: 90 1RF hydrochlorothiazide 50 mg tablet 50 mg PO DAILY Qty: 90 1RF Primary Care Provider: Kana Avelar Referrals: Kana Avelar MD [Primary Care Provider, Internal Medicine] Activity Restrictions/Additional Instructions: I have given you a copy of your CAT scan report and your echocardiogram report. On Saturday call your internal medicine physician for follow-up appointment so they can help follow all your specialty appointments. Follow-up with surgery and GI physician for concern for abdominal swelling and possible hernia. Follow-up with the video surveillance technician for further outpatient testing or stress test or cardiac cath is indicated secondary to the severe coronary artery atherosclerosis disease. Continue taking all medication as prescribed. Continue taking Eliquis as prescribed. Print Language: Azeri Disposition Disposition: Home, Self Care Discharge Date/Time: 02/12/25 16:14
--- NOTE | 2025-02-12 09:35 | RAD_ITS ---
PROCEDURE: CHEST 1 VIEW (PORTABLE) 02/12/2025 REASON FOR EXAM: CHEST PAIN TECHNIQUE: Frontal view of the chest. COMPARISON: None FINDINGS: Hardware: EKG leads Heart: Mildly enlarged. Lungs: Clear. No pneumothorax or pleural effusion. Bones: The bones are unremarkable. RAD/Chest 1 View (Portable) IMPRESSION: No acute abnormality. Reading Location: [id number]
[2025-02-12 09:40] LABS: Hematocrit 37.8 % (40-54); Hemoglobin 13.0 g/dL (13.0-16.5); Immature Granulocytes Count 0.040 X10^3/uL (0.0-0.0); Mean Corp Hgb Conc 34.4 g/dL (32-36); Mean Corpuscular Volume 90.9 fL (80-94); Mean Platelet Vol. 11.7 fl (6.2-12.0); NRBC Flagged by Analyzer 0 % (0-5); Platelet Count 236 K/mm3 (150-450); RBC Distribution Width CV 11.9 % (11.6-14.6); RBC Distribution Width SD 39.8 fl (35.1-43.9); Red Blood Count 4.16 M/mm3 (4.6-6.2); White Blood Count 7.8 K/mm3 (4.4-11.0)
--- NOTE | 2025-02-12 09:47 | CT_ITS ---
PROCEDURE: CTA CHEST W/WO CONTRAST 02/12/2025 REASON FOR EXAM: RULE OUT PE Dyspnea. Positive left lower extremity DVT. TECHNIQUE: Procedure Code: [id number] Modality: CT Procedure: CTA CHEST W/WO CONTRAST Multiplanar Sagittal and Coronal images were obtained. 3D post processing was performed CONTRAST: Isovue 370 VOLUME: 97 mL One or more dose reduction techniques were used (e.g., Automated exposure control, adjustment of the mA and/or kV according to patient size, use of iterative reconstruction technique). RADIATION DOSE SUMMARY: CTDlvol: 30 mGy DLP: 533 mGycm COMPARISON: Chest x-ray of the same day # of known CTs in the past 12 months: 0 # of known Cardiac Nuclear Medicine Studies in the past 12 months: 0 FINDINGS: Thoracic Aorta: Timing and quality of the contrast bolus is diagnostic. There is no evidence of acute aortic rupture or dissection. Incidental note is made of left vertebral artery originating directly from the arch. Heart: Normal-size. No pericardial effusion. Heavy, three-vessel coronary artery atherosclerotic plaque is present (visual Agatson score: V3, N3) Pulmonary Vessels: The timing and quality of the contrast bolus is diagnostic. Acute pulmonary embolus is present in the right interlobar pulmonary artery extending into the segmental pulmonary arteries of the right lower lobe. RV strain: RV/LV ratio (>1.0): Absent Straightening or bowing of the interventricular septum: Present. Enlargement of the main PA: Absent Reflux of contrast into the hepatic IVC: Absent Hardware: None Lymph nodes: None appear enlarged Lungs and Airways: Minimal, dependent subsegmental atelectasis. No consolidation, mass or worrisome nodule. Pleura: No pleural effusion or pneumothorax Upper Abdomen: Likely fatty liver. Bones: Degenerative changes of the thoracic spine. CT/CTA Chest W/WO Contrast IMPRESSION: 1. Acute pulmonary embolus on the right. Equivocal RV strain. 2. Severe coronary artery atherosclerotic disease. Red Alert: Pulmonary embolus The critical findings in the findings and impression above were relayed directl y by me by telephone to Barrie Delgado on 02/12/2025 at 11:20 am with readback verification. Reading Location: [id number]
[2025-02-12 09:53] LABS: Prothrombin Time (Protime)PT. 15.4 SECONDS (11.7-14.9)
[2025-02-12 09:54] LABS: Partial Thromboplast Time 32.2 Seconds (24.1-36.2)
[2025-02-12 10:15] LABS: Anion Gap 10 (5-15); BUN 20 mg/dL (4-19); BUN/Creat Ratio 17.7 RATIO (10-20); Calcium,Total 9.0 mg/dL (7.6-11.0); Carbon Dioxide 24.1 mmol/L (21.0-32.0); Chloride 106 mmol/L (98-108); Estimated Creatinine Clearance 103.20 ml/min (50-250); Glucose 188 mg/dL (70-99); Magnesium 2.0 mg/dL (1.5-2.2); Potassium 4.8 mmol/L (3.3-5.1); Pro- Brain NATRIURETIC PEPTIDE 119 pg/mL (<=900); Troponin T High Sensitivity 24 ng/L (<=22)
[2025-02-12 10:41] VITALS: BP 160/98; PULSE 79; RESP 20; O2SAT 99
[2025-02-12 11:03] VITALS: BP 167/96; PULSE 68; RESP 16; O2SAT 98
[2025-02-12 11:46] LABS: Troponin T High Sens 2 HR 23 ng/L (<=22)
--- NOTE | 2025-02-12 12:19 | ECHOCS_ITS ---
Reason For Study Reason For Study: RV FAILURE Procedure This was a 2D Doppler, Color Flow transthoracic echocardiogram. The study was technically difficult. Contrast injection was performed. Exam performed portable in ED. Left Ventricle Normal LV size. Mild concentric left ventricular hypertrophy. The left ventricular ejection fraction is 65 %. Stage 1 diastolic dysfunction. Right Ventricle Normal right ventricle. Atria The left and right atria are normal. Mitral Valve There is Mild focal posterior mitral annular calcification. Trivial mitral valve insufficiency. Tricuspid Valve Trivial tricuspid valve insufficiency. Unable to estimate RV systolic pressure due to insufficient tricuspid regurgitant envelope. Aortic Valve Trisinus/trileaflet aortic valve. Pulmonic Valve The pulmonic valve is not well visualized. Great Vessels Mildly dilated aortic root. Pericardium/Pleural No pericardial effusion. Medication Diluted definity 2ml given slow IV push to enhance endocardial definition. MMode/2D Measurements & Calculations LVIDd: 4.7 cm IVSd: 0.85 cm Ao root diam: 4.1 cm LVIDs: 2.8 cm LVPWd: 1.3 cm FS: 41.0 % LAV(MOD-bp): 47.5 ml LVAd ap4: 41.3 cm2 SV(MOD-sp4): 87.2 ml LAV(MOD-bp) Indexed: 18.5 ml/m2 LVLd ap4: 9.2 cm SI(MOD-sp4): 33.9 ml/m2 LAV(MOD-sp2): 52.1 ml EDV(MOD-sp4): 149.3 ml LAV(MOD-sp4): 40.1 ml EDV(sp4-el): 157.9 ml LVAs ap4: 23.1 cm2 LVLs ap4: 7.2 cm ESV(MOD-sp4): 62.1 ml ESV(sp4-el): 63.0 ml EF(MOD-sp4): 58.4 % EF(sp4-el): 60.1 % SV(sp4-el): 94.8 ml LA A4 area: 16.8 cm2 LA dimension(2D): 4.2 cm RA A4 area: 10.9 cm2 Time Measurements MV dec time: 0.22 sec Doppler Measurements & Calculations MV E max henrry: 107.0 cm/sec Lat Peak E' Henrry: 8.8 cm/sec Med Peak E' Henrry: 7.5 cm/sec MV A max henrry: 127.0 cm/sec E/E' lat: 12.1 E/E' med: 14.3 MV E/A: 0.84 MV V2 max: 129.6 cm/sec MV dec slope: 483.1 cm/sec2 Ao V2 max: 148.9 cm/sec MV max P.7 mmHg Ao max P.0 mmHg MV V2 mean: 94.5 cm/sec Ao V2 mean: 102.6 cm/sec MV mean P.8 mmHg Ao mean P.8 mmHg MV V2 VTI: 44.7 cm Ao V2 VTI: 32.6 cm AV (velocity ratio): 0.74 LV V1 max: 124.4 cm/sec PA V2 max: 101.3 cm/sec TR max henrry: 203.4 cm/sec LV V1 max P.2 mmHg PA V2 mean: 77.1 cm/sec TR max P.1 mmHg LV V1 mean P.4 mmHg LV V1 mean: 87.2 cm/sec LV V1 VTI: 24.2 cm ECHO/Echo Complete W/ Contrast Interpretation Summary Mild concentric left ventricular hypertrophy. The left ventricular ejection fraction is 65 %. Stage 1 diastolic dysfunction. There is Mild focal posterior mitral annular calcification. Mildly dilated aortic root. Ordering Physician: Barrie Delgado Referring Physician: Kana Avelar Performed By: Siobhan Garcia RCS
[2025-02-12 15:50] VITALS: BP 177/99; PULSE 74; RESP 19; TEMP 37.1; O2SAT 96
== END 2025-02-12 16:14 | disposition home or self-care (01) ==
PROVIDERS: Emergency Provider Emergency Medicine; PCP Internal Medicine; Visit Provider Emergency Medicine
DX: I26.99 Other pulmonary embolism without acute cor pulmonale (principal); I82.432 Acute embolism and thrombosis of left popliteal vein; I82.412 Acute embolism and thrombosis of left femoral vein; I82.422 Acute embolism and thrombosis of left iliac vein; I82.492 Acute embolism and thrombosis of other specified deep vein of left lower extremity; E11.9 Type 2 diabetes mellitus without complications; E78.00 Pure hypercholesterolemia, unspecified; R06.02 Shortness of breath; I10 Essential (primary) hypertension; Z79.899 Other long term (current) drug therapy; Z79.84 Long term (current) use of oral hypoglycemic drugs
CPT/HCPCS: 71045; 71275; 80048; 83735; 83880; 84484; 85025; 85610; 85730; 93005; 93306; 99285; Q9957; Q9967; A4216; C8929

== ENCOUNTER → 2025-02-12 | Outpatient (CLI) | payer OTHER, SELFPAY ==
--- NOTE | 2025-02-12 07:59 | VDLE_ITS ---
Reason For Study Reason For Study: Swelling LLE RIGHT LEFT CFV is compressible, spontaneous, phasic, competent Lt EIV and Lt Profunda V are DILATED and NON and demonstrates normal augmentation. COMPRESSIBLE consistent with acute DVT. Procedure Acute deep vein thrombosis is noted in the CFV. It is This is a venous duplex using B-mode, color flow and dilated and NONCOMPRESSIBLE. spectral Doppler. Acute deep vein thrombosis is noted in the FV. It is Exam performed in department. dilated and NONCOMPRESSIBLE. A preliminary report was called and/or faxed to Acute deep vein thrombosis is noted in the POP V. It Russell MEIER. is dilated and NONCOMPRESSIBLE. T/P Trunk is compressible. PTV is compressible. LT PerV is compressible. GSV is normal. VL/Venous Duplex US, Unilateral Interpretation Summary Acute deep vein thrombosis is noted in the left external iliac vein. Acute deep vein thrombosis is noted in the left profunda femoris vein. Acute deep vein thrombosis is noted in the left common f emoral vein. Acute deep vein thrombosis is noted in the left femoral vein. Acute deep vein thrombosis is noted in the l eft popliteal vein. The remainder of the left lower extremity deep venous system is patent and compressible. The left gr eat saphenous vein is patent and compressible. The right common femoral vein is patent and compressible. Ordering Physician: Russell Gomes Referring Physician: Kana Avelar Performed By: Kari Moyer, RDCS, RVT
== END | disposition home or self-care (01) ==
PROVIDERS: PCP Internal Medicine; Referring Provider Physician Assistant; Visit Provider Physician Assistant
DX: M79.89 Other specified soft tissue disorders (principal); I70.92 Chronic total occlusion of artery of the extremities
CPT/HCPCS: 93971

== ENCOUNTER → 2025-04-20 | Outpatient (CLI) | payer OTHER, SELFPAY ==
--- OUTSIDE RECORDS SUMMARY | 2025-04-20 06:35 | XMS RPT_ITS | CCD ---
Author Organization [facility] CliniSyor Care Team Providers Care Primary Teaching Assistant Name Role Phone TATYANAAURORA Admitting Unavailable TATYANAAURORA GIBBONS Attending Unavailable AURORA JOE Primary Care Unavailable Dr. Gagan Chin Chi Primary Care Provider Giuseppe, Dr. Gagan Davidsno Referring Provider HARDEEP Cabrera Attending Provider Dr. Gagan Chin Chi Primary Care Provider Giuseppe, Dr. Gagan Davidson Referring Provider LE Hardwick-C Cb Attending Provider [phone] LE Hardwick-C Cb Primary Care Provider Dr. 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 Roger Primary Care Provider Dr. Kana Avelar MD Attending Provider [phone] Valentino LEI, Dr. Roger Referring Provider [phone] Valentino LEI, Dr. Roger Primary Care Physician Valentino LEI, Dr. Roger Attending Physician [phone] Jovany Cabrera Attending Physician Valentino LEI, Dr. Roger Primary Care Physician Valentino LEI, Dr. Roger Attending Physician [phone] Dr. Kana Avelar MD Referring Provider Russell Ford Attending Physician Russell Ford Referring Provider Danny LEES, Dr. Sood Attending Physician Danny LEES, Dr. Sood Emergency Department Physici an Oj LEI, Dr. Dumont Attending Physician Elsa Nelson Attending Physician Robert LEI, Dr. Bowers Attending Physician Julia Mcwilliams Attending Unavailable Oleghe, Efewongbe Primary Care Unavailable Elsa Rodriguez Attending Unavailable Oleghe, Efewongbe Referring Unavailable Oleghe, Efewongbe Primary Care Unavailable Oleghe, Efewongbe Referring Unavailable Oleghe, Efewongbe Primary Care Unavailable Robinson Jones Attending Unavailable Oleghe, Efewongbe Referring Unavailable Oleghe, Efewongbe Primary Care Unavailable Sumi Turpin Attending Unavailable Russell Ford Referring Unavailable Russell Ford Attending Unavailable Oleghe, Efewongbe Primary Care Unavailable Barrie Delgado Attending Unavailable Oleghe, Efewongbe Primary Care Unavailable Russell Ford Attending Unavailable Oleghe, Efewongbe Referring Unavailable Oleghe, Efewongbe Primary Care Unavailable Oleghe, Efewongbe Attending Unavailable Ferullo, Cb Primary Care Unavailable Cb Hardwick Referring Unavailable Russell Ford Attending Unavailable Russell Ford Referring Unavailable Oleghe, Efewongbe Primary Care Unavailable Oleghe, Efewongbe Primary Care Unavailable Oleghe, Efewongbe Attending Unavailable Oleghe, Efewongbe Referring Unavailable Oleghe, Efewongbe Primary Care Unavailable Oleghe, Efewongbe Attending Unavailable Oleghe, Efewongbe Referring Unavailable Oleghe, Efewongbe Primary Care Unavailable Oleghe, Efewongbe Attending Unavailable Oleghe, Efewongbe Referring Unavailable Oleghe, Efewongbe Primary Care Unavailable Oleghe, Efewongbe Attending Unavailable Oleghe, Efewongbe Referring Unavailable Jovany Cabrera Attending Unavailable Kana Avelar Referring Unavailable Kana Avelar Primary Care Unavailable Valentino LEI, Dr. Roger Primary Care Physician Valentino LEI, Dr. Roger Attending Physician [phone] Valentino LEI, Dr. Roger Referring Provider [phone] Jovany Cabrera Attending Physician Russell Ford Attending Physician Russell Ford Referring Provider Pay DO, Dr. Sood Attending Physician Pay Dr. Barrie LEES Emergency Department Physici an Oj LEI, Dr. Dumont Attending Physician Elsa Nelson Attending Physician Robert LEI, Dr. Bowers Attending Physician Dyana CURATOR [employer]-CSumi Attending Physician Allergies Allergy Classification Reported Allergen(s) Allergy Type Date of Onset Reaction(s) Facility (1 source) ALLERGIES NOT ON FILE; Translations: [ALLERGIES NOT ON FILE] Propensity to adverse reactions (disorder) [facility] 2 Repository Medications Current Medications Medication Drug Class(es) Dates Sig (Normalized) Sig (Original) apixaban 5 mg oral tablet (10 sources) Factor Xa Inhibitor Start: 03-04-2025 take 1 tablet by mouth twice daily Apixaban (Eliquis) 5 mg tablet Active 5 mg PO TWICE A DAY 30 March 04, 2025 12:43pm Complies with drug therapy Start: 02-12-2025 End: 02-17-2025 take 1 tablet by mouth once Apixaban (Eliquis Dvt-Pe T reat 30d Start) 5 mg (74 tabs) tablets,dose pack Discontinued 0 PO per package directions 74 0 February 11, 2025 11:00pm February 17, 2025 7:17am PO PER PKG DIR Start: 02-11-2025 End: 03-04-2025 take 1 tablet by mouth twice daily Apixaban (Eliquis) 5 mg tablet Discontinued 5 mg PO TWICE A DAY 30 2 March 04, 2025 12:41pm March 04, 2025 12:44pm atorvastatin 40 mg oral tablet (19 sources) HMG-CoA Reductase Inhibitor Start: 03-04-2025 take 1 tablet by mouth once daily Atorvastatin 40 mg tablet Active 40 mg PO daily March 04, 2025 11:47am Complies with drug therapy Start: 05-20-2023 End: 03-04-2025 take 1 mg by mouth once daily Atorvastatin 40 mg table t Discontinued mg PO daily October 12, 2024 7:59am March 04, 2025 11:47am Start: 05-20-2023 Atorvastatin A ctive MG PO May 20, 2023 12:00am glimepiride 4 mg oral tablet (20 sources) Sulfonylurea Start: 10-12-2024 take 1 tablet by mouth twice daily Glimepiride 4 mg tablet Active 4 mg PO TWICE A DAY 180 90 1 October 12, 2024 8:34am Type 2 diabetes mellitus Type 2 diabetes mellitus without complications Complies with drug therapy Start: 10-21-2023 End: 10-12-2024 take 1 tablet by mouth twice daily Glimepiride 2 mg tablet Discontinued 2 mg PO TWICE A DAY 90 January 23, 2024 6:41am October 12, 2024 8:36am Type 2 diabetes mellitus Type 2 diabetes mellitus without complications Start: 05-23-2023 End: 10-21-2023 take 1 tablet by mouth once daily at breakfast Glimepiride 2 mg tablet Discontinued 2 mg PO EVERY MORNING 90 August 15, 2023 12:05pm October 21, 2023 4:03pm Type 2 diabetes mellitus Type 2 diabetes mellitus without complications administer with breakfast losartan potassium 100 mg oral tablet (20 sources) Angiotensin 2 Receptor William Start: 03-01-2025 take 1 tablet by mouth once daily Losartan 100 mg tablet Active 100 mg PO DAILY 90 90 2 March 01, 2025 2:53pm Complies with drug therapy Start: 03-01-2025 take 1 tablet by david th once daily Start: 03-01-2025 take 1 tablet by david th once daily Start: 03-01-2025 take 1 tablet by david th once daily Start: 05-20-2023 End: 03-01-2025 take 1 tablet by mouth once daily Losartan 100 mg tablet Discontinued 100 mg PO DAILY 90 90 2 October 31, 2023 4:54pm July 14, 2024 11:54am Start: 05-20-2023 Losartan Activ e MG PO May 20, 2023 12:00am Yulee (Nk) (3 sources) Start: 07-27-2021 Yulee (Nk) A ctive July 27, 2021 12:00am Start: 07-27-2021 Yulee (Nk) A ctive July 26, 2021 11:00pm Completed/Discontinued Medications Medication Drug Class(es) Dates Sig (Normalized) Sig (Original) Albuterol-Budesonid e (4 sources) Start: 02-11-2025 End: 02-17-2025 Albuterol-Budesonide (Airsupra) 90-80 mcg/actuation HFA aerosol inhaler Discontinued 2 NMA INHALATION ONCE 10.7 0 February 10, 2025 11:00pm February 17, 2025 7:16am as a single dose; may repeat up to 6 doses per day (12 inhalations) Start: 02-11-2025 End: 02-17-2025 Albuterol-Budesonide (Airsup ra) 90-80 mcg/actuation HFA aerosol inhaler Discontinued 2 NMA INHALATION ONCE 10.7 0 February 11, 2025 12:00am February 17, 2025 8:16am as a single dose; may repeat up to 6 doses per day (12 inhalations) amoxicillin 875 mg / clavulanate 125 mg oral tablet (20 sources) Penicillin-class Antibacterial Start: 01-26-2025 End: 02-11-2025 Amoxicillin-Pot Clavulanate 875-125 mg tablet Discontinued 1 {tbl} PO TWICE A DAY 20 0 January 25, 2025 11:00pm February 11, 2025 2:03pm Start: 11-17-2023 End: 11-24-2023 Amoxicillin-Pot Clavulanate 875-125 mg tablet Discontinued 1 {tbl} PO TWICE A DAY 14 7 0 November 16, 2023 11:00pm November 22, 2023 11:00pm November 23, 2023 11:06pm Start: 07-15-2020 End: 07-25-2020 Amoxicillin-Pot Clavulanate (Augmentin) 875-125 mg tablet Discontinued 1 {tbl} PO Q12H 20 10 0 July 15, 2020 12:00am July 23, 2020 11:00pm July 24, 2020 11:02pm Acute sinusitis, unspecified dextromethorphan hydrobromide 1 mg/ml / doxylamine succinate 0.417 mg/ml oral solution (13 sources) Uncompetitive P-bqrydh-O-aspartate Receptor Antagonist, Sigma-1 Agonist Start: 07-15-2020 End: 08-16-2020 take 1 mL by mouth once Doxylamine-Dextromethorphan (Vicks Nyquil Cough) 6.25-15 mg/15 mL solution Discontinued 15 mL PO ONCE July 15, 2020 12:00am August 16, 2020 5:36am Start: 07-15-2020 End: 08-16-2020 take 1 mL by mouth once Doxylamine-Dextromethorphan (Vicks Nyquil Cough) 6.25-15 mg/15 mL solution Discontinued 15 ML PO ONCE July 15, 2020 12:00am August 16, 2020 5:36am hydroCHLOROthiazide 50 mg oral tablet (20 sources) Thiazide Diuretic Start: 10-21-2023 End: 12-31-2024 take 1 tablet by mouth once daily Hydrochlorothiazide 50 mg tablet Discontinued 50 mg PO DAILY 90 0 November 04, 2024 1:22pm December 31, 2024 7:14am Hypertension Essential (primary) hypertension Start: 05-20-2023 End: 10-21-2023 take 1 tablet by mouth once daily Hydrochlorothiazide 25 mg tablet Discontinued 25 mg PO DAILY 90 90 May 20, 2023 12:00am October 21, 2023 4:03pm Hypertension Essential (primary) hypertension metFORMIN hydrochloride 1000 mg oral tablet (20 sources) Biguanide Start: 05-20-2023 End: 10-12-2024 take 1 tablet by mouth twice daily Metformin 1,000 mg tablet Active 1000 mg PO TWICE A DAY 180 90 October 12, 2024 8:35am Complies with drug therapy Start: 05-20-2023 End: 10-12-2024 take 1 mg by mouth once daily Metformin 1,000 mg table t Discontinued mg PO daily October 12, 2024 7:59am October 12, 2024 8:36am Start: 05-20-2023 Metformin Acti ve MG PO May 20, 2023 12:00am pantoprazole 40 mg delayed release oral tablet (20 sources) Proton Pump Inhibitor Start: 11-29-2023 End: 11-30-2024 take 1 tablet by mouth once daily Pantoprazole (Protonix) 40 mg tablet,delayed release (DR/EC) Discontinued 40 mg PO DAILY 90 May 27, 2024 8:59am November 30, 2024 4:47pm Tirzepatide (10 sources) Start: 02-10-2024 End: 05-20-2024 Tirzepatide 2.5 mg/0.5 mL pen injector Discontinued 2.5 mg SC EVERY WEEK 2 0 February 10, 2024 12:20pm May 20, 2024 1:24pm Type 2 diabetes mellitus Type 2 diabetes mellitus without complications for 4 weeks then call office with update Start: 02-10-2024 End: 05-20-2024 Tirzepatide 2.5 mg/0.5 mL pe n injector Discontinued 2.5 mg SC EVERY WEEK 2 0 February 10, 2024 1:20pm May 20, 2024 2:24pm Type 2 diabetes mellitus Type 2 diabetes mellitus without complications for 4 weeks then call office with update Start: 12-16-2023 End: 02-10-2024 Tirzepatide 2.5 mg/0.5 mL pe n injector Discontinued 2.5 mg SC EVERY WEEK 2 December 15, 2023 11:00pm February 10, 2024 12:21pm Type 2 diabetes mellitus Type 2 diabetes mellitus without complications for 4 weeks then call office with update Start: 12-16-2023 End: 02-10-2024 Tirzepatide 2.5 mg/0.5 mL pe n injector Discontinued 2.5 mg SC EVERY WEEK 2 December 16, 2023 12:00am February 10, 2024 1:21pm Type 2 diabetes mellitus Type 2 diabetes mellitus without complications for 4 weeks then call office with update Tirzepatide 2.5 mg/0.5 mL pe n injector (6 sources) Start: 02-10-2024 End: 01-15-2025 Tirzepatide 2.5 mg/0.5 mL pe n injector Discontinued 2.5 mg SC EVERY WEEK 2 0 February 10, 2024 1:20pm May 20, 2024 2:24pm Type 2 diabetes mellitus Type 2 diabetes mellitus without complications for 4 weeks then call office with update Start: 02-10-2024 End: 05-20-2024 Tirzepatide 2.5 mg/0.5 mL pe n injector Discontinued 2.5 mg SC EVERY WEEK 2 February 10, 2024 1:20pm May 20, 2024 2:24pm for 4 weeks then call office with update Start: 12-16-2023 End: 02-10-2024 Tirzepatide 2.5 mg/0.5 mL pe n injector Discontinued 2.5 mg SC EVERY WEEK 2 December 16, 2023 12:00am February 10, 2024 1:21pm Type 2 diabetes mellitus Type 2 diabetes mellitus without complications for 4 weeks then call office with update Start: 12-16-2023 End: 02-10-2024 Tirzepatide 2.5 mg/0.5 mL pe n injector Discontinued 2.5 mg SC EVERY WEEK 2 December 16, 2023 12:00am February 10, 2024 1:21pm for 4 weeks then call office with update Problems Active Problems Problem Classification Problem Date Documented Da te Episodic/Chronic Abdominal hernia (12 sources) Unspecified abdominal hernia without obstruction or gangrene; Translations: [Hernia] 05-20-2023 Episodic Acute bronchitis (8 sources) Acute bronchitis; Translations: [Acute bronchitis, unspecified] 02-11-2025 Episodic Anxiety disorders (20 sources) Acute stress disorder; Translations: [Acute stress reaction] 10-21-2023 Chronic Coronary atherosclerosis and other heart disease (10 sources) Coronary arteriosclerosis; Translations: [Atherosclerotic heart disease of [place] coronary artery without angina pectoris] Onset: 5 Chronic Diabetes mellitus with complications (1 source) Type 2 diabetes mellitus with diabetic neuropathy, unspecified; Translations: [Type 2 diabetes mellitus with diabetic neuropathy, unspecified] Onset: 5 Chronic Diabetes mellitus without complication (20 sources) Type 2 diabetes mellitus; Translations: [Type 2 diabetes mellitus without complications] Onset: 4 05-20-2023 Chronic Disorders of lipid metabolism (19 sources) Hyperlipidemia; Translations: [Hyperlipidemia, unspecified] Onset: 4 05-20-2023 Chronic E Codes: Fall (14 sources) Fall; Translations: [Unspecified fall, initial encounter] 03-10-2019 Episodic Esophageal disorders (8 sources) Gastroesophageal reflux disease; Translations: [Gastro-esophageal reflux disease without esophagitis] 05-20-2024 Chronic Essential hypertension (20 sources) Hypertensive disorder; Translations: [Essential (primary) hypertension] Onset: 4 05-20-2023 Chronic Immunizations and screening for infectious disease (20 sources) Encounter for screening for other viral diseases; Translations: [Patient encounter status] Onset: 0 08-16-2020 Episodic Other circulatory disease (9 sources) Elevated blood pressure; Translations: [Elevated blood-pressure reading, without diagnosis of hypertension] 02-11-2025 Episodic Other circulatory disease (1 source) Elevated blood-pressure reading, without diagnosis of hypertension; Translations: [Elevated blood-pressure reading, without diagnosis of hypertension] Onset: 5 Episodic Other connective tissue disease (2 sources) Disease suspected; Translations: [Other symptoms and signs involving the nervous system] 05-20-2023 Episodic Other connective tissue disease (2 sources) Other symptoms and signs involving the nervous system; Translations: [Other symptoms involving nervous and musculoskeletal systems] 05-20-2023 Episodic Other connective tissue disease (8 sources) Suspected respiratory disease; Translations: [Other symptoms and signs involving the nervous system] 05-20-2023 Episodic Other connective tissue disease (20 sources) Diastasis recti; Translations: [Separation of muscle (nontraumatic), other site] 07-08-2023 Episodic Other connective tissue disease (8 sources) Swelling of left lower limb; Translations: [Other specified soft tissue disorders] 02-11-2025 Episodic Other connective tissue disease (1 source) Other specified soft tissue disorders; Translations: [Other specified soft tissue disorders] Onset: 5 Episodic Other gastrointestinal disorders (8 sources) Abdominal bloating; Translations: [Abdominal distension (gaseous)] 11-29-2023 Episodic Other injuries and conditions due to external causes (14 sources) Injury of left foot; Translations: [Unspecified injury of left foot, initial encounter] 03-10-2019 Episodic Other injuries and conditions due to external causes (3 sources) Injury of wrist; Translations: [Unspecified injury of left wrist, hand and finger(s), initial encounter] 03-10-2019 Episodic Other injuries and conditions due to external causes (11 sources) Injury of left wrist; Translations: [Unspecified injury of left wrist, hand and finger(s), initial encounter] 03-10-2019 Episodic Other injuries and conditions due to external causes (8 sources) 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; Translations: [Unspecified injury of head, initial encounter] 07-08-2023 Episodic Other lower respiratory disease (10 sources) Dyspnea; Translations: [Dyspnea, unspecified] 05-20-2023 Episodic Other lower respiratory disease (2 sources) Dyspnea, unspecified; Translations: [Other respiratory abnormalities] 05-20-2023 Episodic Other lower respiratory disease (1 source) Shortness of breath; Translations: [Shortness of breath] Onset: 5 Episodic Other male genital disorders (12 sources) Male erectile dysfunction, unspecified; Translations: [Erectile dysfunction] 05-20-2023 Chronic Other male genital disorders (8 sources) Disorder of male genital organ; Translations: [Hydrocele, unspecified] 12-16-2023 Episodic Other nervous system disorders (10 sources) Peripheral nerve disease ; Translations: [Polyneuropathy, unspecified] 05-20-2023 Chronic Other nervous system disorders (2 sources) Polyneuropathy, unspecified; Translations: [Unspecified hereditary and idiopathic peripheral neuropathy] 05-20-2023 Chronic Other nutritional; endocrine; and metabolic disorders (10 sources) Obesity; Translations: [Obesity, unspecified] 05-20-2023 Chronic Other nutritional; endocrine; and metabolic disorders (2 sources) Obesity, unspecified; Translations: [Obesity, unspecified] 05-20-2023 Chronic Other upper respiratory disease (8 sources) Bleeding from nose; Translations: [Epistaxis] 02-10-2024 Episodic Other upper respiratory infections (14 sources) Acute sinusitis; Translations: [Acute sinusitis, unspecified] 07-15-2020 Episodic Phlebitis; thrombophlebitis and thromboembolism (20 sources) Deep venous thrombosis; Translations: [Acute embolism and thrombosis of unspecified deep veins of unspecified lower extremity] Onset: 5 Episodic Pulmonary heart disease (4 sources) Pulmonary embolism; Translations: [Other pulmonary embolism without acute cor pulmonale] 02-20-2025 Episodic Residual codes; unclassified (10 sources) Peripheral edema; Translations: [Localized edema] 05-20-2023 Episodic Residual codes; unclassified (2 sources) Localized edema; Translations: [Edema] 05-20-2023 Episodic Unclassified (4 sources) I82.409 - Acute embolism and thrombosis of unspecified deep veins of unspecified lower extremity Unclassified (4 sources) I25.10 - Atherosclerotic heart disease of [place] coronary artery without angina pectoris Past or Other Problems Problem Classification Problem Date Documented Da te Episodic/Chronic Other screening for suspected conditions (not mental disorders or infectious disease) (13 sources) Patient encounter status; Translations: [Encounter for screening for malignant neoplasm of prostate] Onset: 10-12-2024 05-20-2023 Episodic Results Test Name Value Interpretation Reference Range Facility Internal Medicine Office Vis [facility] 03-04-2025 Internal Medicine Office Visit [facility] Internal Medicine [address] [place] [address] [place] [address] OFFICE VISIT Date of Service: 03/04/25 MR#: [id number] Acct: [id number] Name: ADEN SAMANIEGO Rep #: [id number] : 1965 Provider: MELANI wilkinson Age/Sex: 59/M [place] [facility] [place]: Signed Intake Vital Signs 02/12/25 08:58 03/04/25 12:51 03/04/25 13:30 Height 6 ft 1 in 6 ft 1 in Weight: 310 lb BMI 40.8 BP 180/106 H 142/84 H Blood Pressure Location Lt brachial Rt radial Position Sitting Sitting Respiration 16 Pulse 80 Pulse Source Monitor Temp 97.6 F L Temp Source Temporal Pulse Oximetry (%) 97 Oxygen Delivery Method room air Intake Visit Reasons: FOLLOW UP BLOOD CLOTS AND MED REFILL Chief Complaint: FOLLOW UP BLOOD CLOTS AND MED REFILL Is patient in pain?: No Allergies No Known Allergies Allergy (Verified 03/04/25 12:44) Medications ???Medication ???Instructions ???Recorded ???Confirmed ???Type lancets (Accu-Chek Softclix #100 ea 05/23/23 03/04/25 Rx Lancets) blood sugar diagnostic (Relion #100 ea 05/28/23 03/04/25 Rx Confirm-Micro strips) glimepiride 4 mg tablet 4 mg PO BID 3 months #180 tabs 01/2803/04/25 Rx metformin 1,000 mg tablet 1,000 mg PO BID 3 months #180 tabs 10/12/24 03/04/25 Rx pantoprazole 40 mg tablet,delayed 40 mg PO DAILY #90 tabs 11/30/24 03/04/25 Rx release (Protonix) hydrochlorothiazide 50 mg tablet 50 mg PO DAILY #90 tabs 12/31/24 1 Rx losartan 100 mg tablet 100 mg PO DAILY 90 days #90 tabs 1 03/04/25 Rx apixaban 5 mg tablet (Eliquis) 5 mg PO BID #30 tabs 03/04/2502/05 Rx atorvastatin 40 mg tablet 40 mg PO QDAY 03/04/25 03/04/25 Dc story Nurse's Note: HOPING TO SEND SCRIPT FOR ELIQUIS TO [facility] TO OBTAIN MEDICATIONS CHEAPER. MAY NEED A COUPLE WEEK'S WORTH OF SAMPLES TO COVER PATIENT UNTIL SUPPLY IS DELIVERED FROM [place]. [facility] Medical History Anxiety and depression Hernia High cholesterol Back pain Neck pain Limb weakness Diabetes SOB (shortness of breath) Hypertension Surgical History H/O hernia repair H/O left wrist surgery Social History Smoking Status: Never smoker alcohol intake: current alcohol intake frequency: holidays/special occasions only substance use type: does not use what type of physical activity do you participate in: bicycling frequency: 3-4 times per week do you feel safe at home: Yes HPI HPI Chief Complaint: FOLLOW UP BLOOD CLOTS AND MED REFILL Details: ADEN SAMANIEGO, is a 59 M who presents to the office today for follow-up for follow-up after diagnosis of extensive left lower extremity deep vein thrombosis. His initial symptoms began in early February and he subsequently was found to have thrombus from the external iliac vein down along with a small pulmonary emboli. He previously had a follow-up visit with vascular. He has been tolerating Eliquis and overall feels well. He states he has no pain he has minimal chest discomfort at times however this is not new. Patient states he would like to follow-up with cardiovascular and has an appointment due to some calcifications seen on his CT while in the emergency room. Today his blood pressure is elevated. He states his blood pressure is always elevated and he is not concerned with this reading today. He is also concerned about the cost of Eliquis states that he did take a coupon to the pharmacy but they said they could not use it. He would like a hardcopy of his prescription so that he can send it to [facility] due to cost. He has no concerns of headache. No noted shortness of breath no new cough legs feel well no increase in swelling noted no new concerns. ROS Const Constitutional: No body ache, chills, excessive sweating, fatigue, fever(s), frequent falls, headache(s), snoring, weakness, sleep problems or change in appetite Eyes Eyes: No blurry vision, change in vision or Light sensitivity ENT ENT: No abnormal hearing, ear or mastoid pain, tinnitus, nasal congestion, nasal discharge, headache(s), neck pain or sore throat Resp Respiratory: No cough, shortness of breath, snoring or wheezing Cardio Cardiology: No chest pain at rest, chest pain with exertion, excessive sweating, shortness of breath, dyspnea on exertion, lightheadedness, orthopnea or palpitations Gastro GI: No abdominal pain, change in bowel habits, constipation, cramping, diarrhea or nausea/dyspepsia Genitourinary Male: No burning urination, painful urination, urinary incontinence or urinary frequency Musc Musculoskeletal: No abnormal gait, joint pain, back pain, limited range of motion, muscle weakness, (more content not included)... Normal [facility] MR/BMS.Arley 02-24-2025 MR/BMS.LEENA [facility] Vascular Surgery [address] [place] [address] OFFICE VISIT Date of Service: 02/24/25 MR#: [id number] Acct: [id number] Name: ADEN SAMANIEGO JOSEFA Rep #: [id number] : 1965 Provider: Dr. Robinson Jones MD Age/Sex: 59/M [place] [facility] [facility] [place] Status: Signed Intake Vital Signs 02/12/25 08:58 02/24/25 15:30 Height 6 ft 1 in Weight: 310 lb BP 177/88 H Blood Pressure Location Lt brachial Position Sitting Respiration 16 Pulse 82 Pulse Source Monitor Temp 98 F Temp Source Temporal Pulse Oximetry (%) 96 Oxygen Delivery Method room air Intake Visit Reasons: DVT F/U Is patient in pain?: No Allergies No Known Allergies Allergy (Verified 02/24/25 15:32) Medications ???Medication ???Instructions ???Recorded ???Confirmed ???Type lancets (Accu-Chek Softclix #100 ea 05/23/23 02/24/25 Rx Lancets) blood sugar diagnostic (Relion #100 ea 05/28/23 02/24/25 Rx Confirm-Micro strips) losartan 100 mg tablet 100 mg PO DAILY 90 days #90 tabs 0 07/14/24 02/24/25 Rx atorvastatin 40 mg tablet mg PO QDAY 10/12/24 02/24/25 Histo ry glimepiride 4 mg tablet 4 mg PO BID 3 months #180 tabs 01/2802/24/25 Rx metformin 1,000 mg tablet 1,000 mg PO BID 3 months #180 tabs 10/12/24 02/24/25 Rx pantoprazole 40 mg tablet,delayed 40 mg PO DAILY #90 tabs 11/30/24 02/24/25 Rx release (Protonix) hydrochlorothiazide 50 mg tablet 50 mg PO DAILY #90 tabs 12/31/24 1 Rx apixaban 5 mg tablet (Eliquis) 5 mg PO BID #14 tabs 02/11/2502/04 Rx Have you fallen in the past year?: Yes PFSH Medical History Anxiety and depression Hernia High cholesterol Back pain Neck pain Limb weakness Diabetes SOB (shortness of breath) Hypertension Surgical History H/O hernia repair H/O left wrist surgery Social History Smoking Status: Never smoker alcohol intake: current alcohol intake frequency: holidays/special occasions only substance use type: does not use what type of physical activity do you participate in: bicycling frequency: 3-4 times per week do you feel safe at home: Yes HPI HPI HPI: ADEN SAMANIEGO, is a 59 M who presents to the office today for follow-up discussion of extensive left lower extremity deep vein thrombosis. His initial symptoms began in early February and he subsequently was found to have thrombus from the external iliac vein down. He also was found to have small pulmonary emboli. Given the extent of his thrombus the reach threshold to consider percutaneous mechanical thrombectomy. He has been tolerating Eliquis since the initial diagnosis without any missed doses and with significant improvement in his left lower extremity heaviness, tightness, pain. He has had no worsening chest pain or shortness of breath since his original presentation. ROS General General: Yes weight change, fatigue and weakness; No appetite, colon cancer or breast cancer HEENT HEENT: No difficulty swallowing, eye injury, eye surgery, swollen glands or hoarseness Endo Endocrine: Yes diabetes mellitus; No thyroid disease, thyroid cancer, Hair loss, heat intolerance or cold intolerance Skin Skin: No rash or changing moles Musc Musculoskeletal: Yes back problems; No arthritis, rheumatoid arthritis, gout or joint pain Cardio Cardiovascular: Yes high blood pressure; No murmur, pacemaker, heart disease, atrial fibrillation, heart attack, heart stent, palpitations, shortness of breath with exertion or chest pain Psych Psychiatric: No anxiety or hearing voices Resp Respiratory: Yes shortness of breath, No sleep apnea, Yes cough, No COPD, No asthma, No emphysema and No wheezing Gastro Gastrointestinal: No abdominal pain, Yes nausea or vomiting, Yes diarrhea, Yes constipation, No blood in stool, Yes acid reflux, No hemorrhoids, No ulcers, No gallbladder problem and No black,tarry stools Venkatesh Hematologic: Yes blood thinners, No blood disorders, No bleeding, No anemia and Yes blood clots Neuro Neurologic: No system reviewed and no additional complaints, except as documented, No as per HPI, No abnormal gait, Yes abnormal hearing, No abnormal movements, No abnormal speech, No behavioral changes, No burning sensations, Yes confusion, No convulsions, Yes disequilibrium, Yes dizziness, No localized weakness, No frequent falls, Yes headache(s), No lack of coordination, No loss of vision, No memory loss, Yes numbness, Yes other visual disturbances, No radicular pain, Yes restless legs, No sensory deficit, No syncope, Yes tingling, No tremor(s), Yes weakness and No other Exam Const General: cooperative, (more content not included)... Normal [facility] MR/BMSBryson 02-17-2025 MR/BMS.[facility]errick [facility] V[facility] [address] [place] [address] OFFICE VISIT Date of Service: 02/17/25 MR#: [id number] Acct: [id number] Name: ADEN SAMANIEGO Rep #: [id number] : 1965 Provider: HARDEEP Hoang Age/Sex: 59/M Location: [facility] Status: Signed Intake Vital Signs 02/12/25 08:58 02/17/25 08:15 Height 6 ft 1 in Weight: 305 lb BP 174/92 H Blood Pressure Location Lt brachial Position Sitting Respiration 16 Pulse 73 Pulse Source Monitor Temp 97.8 F Temp Source Temporal Pulse Oximetry (%) 96 Oxygen Delivery Method room air Intake Visit Reasons: Deep vein thrombosis Chief Complaint: establish care Is patient in pain?: No Allergies No Known Allergies Allergy (Verified 02/17/25 08:16) Medications ???Medication ???Instructions ???Recorded ???Confirmed ???Type lancets (Accu-Chek Softclix #100 ea 05/23/23 02/17/25 Rx Lancets) blood sugar diagnostic (Relion #100 ea 05/28/23 02/17/25 Rx Confirm-Micro strips) losartan 100 mg tablet 100 mg PO DAILY 90 days #90 tabs 0 07/14/24 02/17/25 Rx atorvastatin 40 mg tablet mg PO QDAY 10/12/24 02/17/25 Histo ry glimepiride 4 mg tablet 4 mg PO BID 3 months #180 tabs 01/2802/17/25 Rx metformin 1,000 mg tablet 1,000 mg PO BID 3 months #180 tabs 10/12/24 02/17/25 Rx pantoprazole 40 mg tablet,delayed 40 mg PO DAILY #90 tabs 11/30/24 02/17/25 Rx release (Protonix) hydrochlorothiazide 50 mg tablet 50 mg PO DAILY #90 tabs 12/31/24 1 Rx apixaban 5 mg tablet (Eliquis) 5 mg PO BID #14 tabs 02/11/2502/03 Rx Have you fallen in the past year?: Yes [facility] Medical History Anxiety and depression Hernia High cholesterol Back pain Neck pain Limb weakness Diabetes SOB (shortness of breath) Hypertension Surgical History H/O hernia repair H/O left wrist surgery Social History Smoking Status: Never smoker alcohol intake: current alcohol intake frequency: holidays/special occasions only substance use type: does not use what type of physical activity do you participate in: bicycling frequency: 3-4 times per week do you feel safe at home: Yes HPI HPI HPI: ADEN SAMANIEGO, is a 59 M who presents to the office today for evaluation and management of extensive LLE DVT and PE. He was seen by his PCP 02/11 for LLE swelling and he was started on Eliquis, stat duplex was completed on 02/12 which demonstrated acute L EIV, PFV, CFV, FV, POPV DVT and at that time he was sent to the [facility] ER as he was also having some SOB. In the the ER 02/12, he had a Chest CTA demonstrating acute PE in the right interlobar pulmonary artery, echocardiogram without evidence of right heart strain; he was hemodynamically stable and saturating well on room air so was discharged home on Eliquis. In the office today, he reports he is tolerating the Eliquis well, has not missed any doses, and has seen some improvement in his LLE edema. He does still have some SOB and CP which he is associating with the PE, not worse just not significantly better yet. He reports the LLE edema started about 3 weeks ago pretty suddenly. He has not had any significant pain, redness, or warmth. He could not identify any preceding triggers such as injury, illness, travel, or otherwise significantly decreased activity. He has not had any prior VTE; he has no known personal or family history of clotting disorders. He reports he is up to date on all age-appropriate cancer screenings and denies other symptoms such as persistent/new cough, difficulty swallowing, change in bowel habits, hematuria, melena, night sweats, excess fatigue. ROS General General: Yes weight change, fatigue and weakness; No appetite, colon cancer or breast cancer HEENT HEENT: No difficulty swallowing, eye injury, eye surgery, swollen glands or hoarseness Endo Endocrine: Yes diabetes mellitus; No thyroid disease, thyroid cancer, Hair loss, heat intolerance or cold intolerance Skin Skin: No rash or changing moles Musc Musculoskeletal: Yes back problems; No arthritis, rheumatoid arthritis, gout or joint pain Cardio Cardiovascular: Yes high blood pressure; No murmur, pacemaker, heart disease, atrial fibrillation, heart attack, heart stent, palpitations, shortness of breath with exertion or chest pain Psych Psychiatric: No anxiety or hearing voices Resp Respiratory: Yes shortness of breath, No sleep apnea, Yes cough, No COPD, No asthma, No emphysema and No wheezing Gastro Gastrointestinal: No abdominal pain, Yes nausea or vomiting, Yes diarrhea, Yes constipation, No blood in stool, Yes acid reflux, No hemorrhoids, (more content not included)... Normal [facility] Absolute lymphocyte countOrd ered By: Barrie Delgado on 02-12-2025 Lymphocytes Auto (Unsp spec) [#/Vol] 1.52 10*3/uL 0.83-4.51 [facility] Absolute neutrophil countOrd ered By: Barrie Delgado on 02-12-2025 Neutrophils (Bld) [#/Vol] 5.4 10*3/uL 2.0-7.7 [facility] Activated partial thrombopla stin time (aPTT) in platelet poor plasma by coagulation aOrdered By: Barrie Delgado on 02-12-2025 aPTT Coag (PPP) [Time] 32.2 s 24.1-36.[address] [facility] Anion gap in Serum or Plasma Ordered By: Barrie Delgado on 02-12-2025 Anion gap [Moles/Vol] 10 mmol/L 5-15 [facility] Automated lymphocyte count a s percentage of total leukocytesOrdered By: Barire Delgado on 02-12-2025 Lymphocytes/100 WBC Auto (Unsp spec) 19.5 % 19-41 [facility] BUN/creatinine ratioOrdered By: Barrie Delgado on 02-12-2025 Urea nitrogen/Creatinine [Mass ratio] 17.7 mg/mg 02-22 [facility] Basic Metabolic Profile (BMP )on 02-12-2025 BUN/CRE 17.7 RATIO Normal 02-22 [facility] Comment on above: Performed By: #### L 500.2500, L100.0100, L501.5200, L503.7505, L501.4021 ####[facility] [address] [place], [address] Calcium [Mass/Vol] 9.0 mg/dL Normal 7.6-11.0 [facility] Comment on above: Performed By: #### L 500.2500, L100.0100, L501.5200, L503.7505, L501.4021 ####[facility] [address] [place], [address] Chloride [Moles/Vol] 106 mmol/L Normal 98-108 [facility] Comment on above: Performed By: #### L 500.2500, L100.0100, L501.5200, L503.7505, L501.4021 ####[facility] [address] [place], [address] CO2 [Moles/Vol] 24.1 mmol/L Normal 21.0-32.0 [facility] Comment on above: Performed By: #### L 500.2500, L100.0100, L501.5200, L503.7505, L501.4021 ####[facility] [address] [place], [address] Creatinine [Mass/Vol] 1.11 mg/dL Normal 0.70-1.20 [facility] Comment on above: Performed By: #### L 500.2500, L100.0100, L501.5200, L503.7505, L501.4021 ####[facility] [address] [place], [address] ECRCL 103.20 ml/min Normal 50-250 [facility] Comment on above: Performed By: #### L 500.2500, L100.0100, L501.5200, L503.7505, L501.4021 ####[facility] [address] [place], [address] GAP 10 Normal 5-15 [facility] Comment on above: Performed By: #### L 500.2500, L100.0100, L501.5200, L503.7505, L501.4021 ####[facility] [address] [place], [address] GFR/1.73 sq M.predicted among non-blacks MDRD (S/P/Bld) [Vol rate/Area] 76 mL/min/{1.73_m2} Normal >60 [facility] Comment on above: Result Comment: mL/m in/1.73m2 CKD-EPI Creatinine Equation (2020) Performed By: #### L 500.2500, L100.0100, L501.5200, L503.7505, L501.4021 ####[facility] [address] [place], [address] Glucose [Mass/Vol] 188 mg/dL High 70-99 [facility] Comment on above: Performed By: #### L 500.2500, L100.0100, L501.5200, L503.7505, L501.4021 ####[facility] [address] [place], [address] Potassium [Moles/Vol] 4.8 mmol/L Normal 3.3-5.1 [facility] Comment on above: Performed By: #### L 500.2500, L100.0100, L501.5200, L503.7505, L501.4021 ####[facility] [address] [place], [address] Sodium [Moles/Vol] 140 mmol/L Normal 133-145 [facility] Comment on above: Performed By: #### L 500.2500, L100.0100, L501.5200, L503.7505, L501.4021 ####[facility] [address] [place], [address] Urea nitrogen [Mass/Vol] 20 mg/dL High 4-19 [facility] Comment on above: Performed By: #### L 500.2500, L100.0100, L501.5200, L503.7505, L501.4021 ####[facility] [address] [place], [address] Basophil percentageOrdered B y: Barrie Delgado on 02-12-2025 Basophils/100 WBC (Bld) 0.6 % 0-1 [facility] CBC W/Diff, Automatedon 02-03 Absolute Lymph 1.52 X10 3/uL Normal 0.83-4.51 [facility] Comment on above: Performed By: #### L 500.2500, L100.0100, L501.5200, L503.7505, L501.4021 ####[facility] [address] [place], [address] Absolute Neut 5.4 X10 3/uL Normal 2.0-7.7 [facility] Comment on above: Performed By: #### L 500.2500, L100.0100, L501.5200, L503.7505, L501.4021 ####[facility] [address] [place], [address] Basophils/100 WBC (Bld) 0.6 % Normal 0-1 [facility] Comment on above: Performed By: #### L 500.2500, L100.0100, L501.5200, L503.7505, L501.4021 ####[facility] [address] [place], [address] Eosinophils/100 WBC (Bld) 3.0 % Normal 0-5 [facility] Comment on above: Performed By: #### L 500.2500, L100.0100, L501.5200, L503.7505, L501.4021 ####[facility] [address] [place], [address] Erythrocyte distribution width (RBC) [Ratio] 11.9 % Normal 11.6-14.6 [facility] Comment on above: Performed By: #### L 500.2500, L100.0100, L501.5200, L503.7505, L501.4021 ####[facility] [address] [place], [address] Hematocrit (Bld) [Volume fraction] 37.8 % Low 40-54 [facility] Comment on above: Performed By: #### L 500.2500, L100.0100, L501.5200, L503.7505, L501.4021 ####[facility] [address] [place], [address] Hemoglobin (Bld) [Mass/Vol] 13.0 g/dL Normal 13.0-16.5 [facility] Comment on above: Performed By: #### L 500.2500, L100.0100, L501.5200, L503.7505, L501.4021 ####[facility] [address] [place], [address] IG% 0.500 Normal 0.0-0.9 [facility] Comment on above: Result Comment: IG% - Immature Granulocytes (promyelocytes, myelocytes and metamyelocytes) > 1% indicates that a LEFT SHIFT is Present. Performed By: #### L 500.2500, L100.0100, L501.5200, L503.7505, L501.4021 ####[facility] [address] [place], [address] Lymphocytes/100 WBC (Bld) 19.5 % Normal 19-41 [facility] Comment on above: Performed By: #### L 500.2500, L100.0100, L501.5200, L503.7505, L501.4021 ####[facility] [address] [place], [address] MCH (RBC) [Entitic mass] 31.3 pg Normal 27.0-32.0 [facility] Comment on above: Performed By: #### L 500.2500, L100.0100, L501.5200, L503.7505, L501.4021 ####[facility] [address] [place], [address] MCHC (RBC) [Mass/Vol] 34.4 g/dL Normal 32-36 [facility] Comment on above: Performed By: #### L 500.2500, L100.0100, L501.5200, L503.7505, L501.4021 ####[facility] [address] [place], [address] MCV (RBC) [Entitic vol] 90.9 fL Normal 80-94 [facility] Comment on above: Performed By: #### L 500.2500, L100.0100, L501.5200, L503.7505, L501.4021 ####[facility] [address] [place], [address] Monocytes/100 WBC (Bld) 6.7 % Normal 0-10 [facility] Comment on above: Performed By: #### L 500.2500, L100.0100, L501.5200, L503.7505, L501.4021 ####[facility] [address] [place], [address] Neutrophils/100 WBC (Bld) 69.7 % Normal 47-70 [facility] Comment on above: Performed By: #### L 500.2500, L100.0100, L501.5200, L503.7505, L501.4021 ####[facility] [address] [place], [address] Nucleated RBC (Bld) [#/Vol] 0 10*3/uL Normal 0-5 [facility] Comment on above: Performed By: #### L 500.2500, L100.0100, L501.5200, L503.7505, L501.4021 ####[facility] [address] [place], [address] Platelet mean volume (Bld) [Entitic vol] 11.7 fL Normal 6.2-12.0 [facility] Comment on above: Performed By: #### L 500.2500, L100.0100, L501.5200, L503.7505, L501.4021 ####[facility] [address] [place], [address] Platelets (Bld) [#/Vol] 236 10*3/uL Normal 150-450 [facility] Comment on above: Performed By: #### L 500.2500, L100.0100, L501.5200, L503.7505, L501.4021 ####[facility] [address] [place], [address] RBC (Bld) [#/Vol] 4.16 10*6/uL Low 4.6-6.2 [facility] Comment on above: Performed By: #### L 500.2500, L100.0100, L501.5200, L503.7505, L501.4021 ####[facility] [address] [place], [address] RDW SD 39.8 fl Normal 35.1-43.9 [facility] Comment on above: Performed By: #### L 500.2500, L100.0100, L501.5200, L503.7505, L501.4021 ####[facility] [address] [place], [address] WBC (Bld) [#/Vol] 7.8 10*3/uL Normal 4.4-11.0 [facility] Comment on above: Performed By: #### L 500.2500, L100.0100, L501.5200, L503.7505, L501.4021 ####[facility] [address] [place], [address] CTA Chest W/WO Contraston CTA Chest W/WO Contrast [facility] Imaging Services [address] [place] [address] CTA Chest W/WO Contrast MR#: [id number] Acct: [id number] Name: ADEN SAMANIEGO Rep #: [id number] : 1965 M 59 From: Sushil Umanzor MD PCP: Dr. Kana Avelar MD Status: REG ER Study: CTA Chest W/WO Contrast Date of Exam: 02/12/25 Exam# [id number] Ordering Dr: Barrie Delgado DO PROCEDURE: CTA CHEST W/WO CONTRAST 02/12/2025 REASON FOR EXAM: RULE OUT PE Dyspnea. Positive left lower extremity DVT. TECHNIQUE: Procedure Code: CTCTACHWW Modality: CT Procedure: CTA CHEST W/WO CONTRAST Multiplanar Sagittal and Coronal images were obtained. 3D post processing was performed CONTRAST: Isovue 370 VOLUME: 97 mL One or more dose reduction techniques were used (e.g., Automated exposure control, adjustment of the mA and/or kV according to patient size, use of iterative reconstruction technique). RADIATION DOSE SUMMARY: CTDlvol: 30 mGy DLP: 533 mGycm COMPARISON: Chest x-ray of the same day # of known CTs in the past 12 months: 0 # of known Cardiac Nuclear Medicine Studies in the past 12 months: 0 FINDINGS: Thoracic Aorta: Timing and quality of the contrast bolus is diagnostic. There is no evidence of acute aortic rupture or dissection. Incidental note is made of left vertebral artery originating directly from the arch. Heart: Normal-size. No pericardial effusion. Heavy, three-vessel coronary artery atherosclerotic plaque is present (visual Agatson score: V3, N3) Pulmonary Vessels: The timing and quality of the contrast bolus is diagnostic. Acute pulmonary embolus is present in the right interlobar pulmonary artery extending into the segmental pulmonary arteries of the right lower lobe. RV strain: RV/LV ratio (>1.0): Absent Straightening or bowing of the interventricular septum: Present. Enlargement of the main PA: Absent Reflux of contrast into the hepatic IVC: Absent Hardware: None Lymph nodes: None appear enlarged Lungs and Airways: Minimal, dependent subsegmental atelectasis. No consolidation, mass or worrisome nodule. Pleura: No pleural effusion or pneumothorax Upper Abdomen: Likely fatty liver. Bones: Degenerative changes of the thoracic spine. CT/CTA Chest W/WO Contrast IMPRESSION: 1. Acute pulmonary embolus on the right. Equivocal RV strain. 2. Severe coronary artery atherosclerotic disease. Red Alert: Pulmonary embolus The critical findings in the findings and impression above were relayed directly by me by telephone to Barrie Delgado on 02/12/2025 at 11:20 am with readback verification. Reading Location: [id number] CC: Dr. Kana Avelar MD; Dr. Barrie Delgado DO Trust Evaluation Supervisor: Signed Normal [facility] Carbon dioxide, total [Moles /volume] in Central venous bloodOrdered By: Barrie Delgado on 02-12-2025 CO2 [Moles/Vol] 24.1 mmol/L 21.0-32.0 [facility] Chest 1 View (Portable)on Chest 1 View (Portable) [facility] Imaging Services [address] [place] [address] Chest 1 View (Portable) MR#: [id number] Acct: [id number] Name: ADEN SAMANIEGO Rep #: [id number] : 1965 M 59 From: Sushil Umanzor MD PCP: Dr. Kana Avelar MD Status: REG ER Study: Chest 1 View (Portable) Date of Exam: 02/12/25 Exam# [id number] Ordering Dr: Barrie Delgado DO PROCEDURE: CHEST 1 VIEW (PORTABLE) 02/12/2025 REASON FOR EXAM: CHEST PAIN TECHNIQUE: Frontal view of the chest. COMPARISON: None FINDINGS: Hardware: EKG leads Heart: Mildly enlarged. Lungs: Clear. No pneumothorax or pleural effusion. Bones: The bones are unremarkable. RAD/Chest 1 View (Portable) IMPRESSION: No acute abnormality. Reading Location: [id number] CC: Dr. Kana Avelar MD; Dr. Barrie Delgado DO Trust Evaluation Supervisor: Signed Normal [facility] Chloride assayOrdered By: Nadeem Delgado on 02-12-2025 Chloride [Moles/Vol] 106 mmol/L 98-108 [facility] Echo Complete W/ Contraston 02-12-2025 Echo Complete W/ Contrast [facility] [address] [place] [address] Echo Complete W/ Contrast 02/12/25 1331 MR#: [id number] Acct: [id number] Name: ADEN SAMANIEGO Rep #: [id number] : 1965 59 From: Julia Mcwilliams MD Attending Dr: Status: REG ER Ordering Dr: Barrie Delgado DO Date: 02/12/25 Location: ED Sex: M C Admitted: Reason For Study Reason For Study: RV FAILURE Procedure This was a 2D Doppler, Color Flow transthoracic echocardiogram. The study was technically difficult. Contrast injection was performed. Exam performed portable in ED. Left Ventricle Normal LV size. Mild concentric left ventricular hypertrophy. The left ventricular ejection fraction is 65 %. Stage 1 diastolic dysfunction. Right Ventricle Normal right ventricle. Atria The left and right atria are normal. Mitral Valve There is Mild focal posterior mitral annular calcification. Trivial mitral valve insufficiency. Tricuspid Valve Trivial tricuspid valve insufficiency. Unable to estimate RV systolic pressure due to insufficient tricuspid regurgitant envelope. Aortic Valve Trisinus/trileaflet aortic valve. Pulmonic Valve The pulmonic valve is not well visualized. Great Vessels Mildly dilated aortic root. Pericardium/Pleural No pericardial effusion. Medication Diluted definity 2ml given slow IV push to enhance endocardial definition. MMode/2D Measurements Calculations LVIDd: 4.7 cm IVSd: 0.85 cm Ao root diam: 4.1 cm LVIDs: 2.8 cm LVPWd: 1.3 cm FS: 41.0 % LAV(MOD-bp): 47.5 ml LVAd ap4: 41.3 cm2 SV(MOD-sp4): 87.2 ml LAV(MOD-bp) Indexed: 18.5 ml/m2 LVLd ap4: 9.2 cm SI(MOD-sp4): 33.9 ml/m2 LAV(MOD-sp2): 52.1 ml EDV(MOD-sp4): 149.3 ml LAV(MOD-sp4): 40.1 ml EDV(sp4-el): 157.9 ml LVAs ap4: 23.1 cm2 LVLs ap4: 7.2 cm ESV(MOD-sp4): 62.1 ml ESV(sp4-el): 63.0 ml EF(MOD-sp4): 58.4 % EF(sp4-el): 60.1 % SV(sp4-el): 94.8 ml LA A4 area: 16.8 cm2 LA dimension(2D): 4.2 cm RA A4 area: 10.9 cm2 Time Measurements MV dec time: 0.22 sec Doppler Measurements Calculations MV E max seng: 107.0 cm/sec Lat Peak E' Seng: 8.8 cm/sec Med Peak E' Seng: 7.5 cm/sec MV A max seng: 127.0 cm/sec E/E' lat: 12.1 E/E' med: 14.3 MV E/A: 0.84 MV V2 max: 129.6 cm/sec MV dec slope: 483.1 cm/sec2 Ao V2 max: 148.9 cm/sec MV max P.7 mmHg Ao max P.0 mmHg MV V2 mean: 94.5 cm/sec Ao V2 mean: 102.6 cm/sec MV mean P.8 mmHg Ao mean P.8 mmHg MV V2 VTI: 44.7 cm Ao V2 VTI: 32.6 cm AV (velocity ratio): 0.74 LV V1 max: 124.4 cm/sec PA V2 max: 101.3 cm/sec TR max seng: 203.4 cm/sec LV V1 max P.2 mmHg PA V2 mean: 77.1 cm/sec TR max P.1 mmHg LV V1 mean P.4 mmHg LV V1 mean: 87.2 cm/sec LV V1 VTI: 24.2 cm ECHO/Echo Complete W/ Contrast Interpretation Summary Mild concentric left ventricular hypertrophy. The left ventricular ejection fraction is 65 %. Stage 1 diastolic dysfunction. There is Mild focal posterior mitral annular calcification. Mildly dilated aortic root. Ordering Physician: Barrie Delgado Referring Physician: Kana Avelar Performed By: Siobhan Garcia RCS 02/12/25 1508 Date Julia Mcwilliams MD CC: Dr. Kana Avelar MD; Dr. Barrie Delgado DO Date Dictated: 02/12/25 133 Date Transcribed: 02/12/25 1508 Trust Evaluation Supervisor: Signed Normal [facility] Echocardiogram study reportO rdered By: Julia Mcwilliams on 02-12-2025 Study report [facility] [address] [place] [address] Echo Complete W/ Contrast 02/12/25 1331 MR#: [id number] Acct: [id number] Name: ADEN SAMANIEGO Rep #:[id number] : 1965 59 From: Julia Mcwilliams MD Attending Dr: Status: REG E R Ordering Dr: Barrie Delgado DO Date: 02/27 Location: ED Sex: M C Admitted: Reason For Study Reason For Study: RV FAILURE Procedure This was a 2D Doppler, Color Flow transthoracic echocardiogram. The study was technically difficult. Contrast injection was performed. Exam performed portable in ED. Left Ventricle Normal LV size. Mild concentric left ventricular hypertrophy. The left ventricular ejection fraction is 65 %. Stage 1 diastolic dysfunction. Right Ventricle Normal right ventricle. Atria The left and right atria are normal. Mitral Valve There is Mild focal posterior mitral annular calcification. Trivial mitral valveinsufficiency. Tricuspid Valve Trivial tricuspid valve insufficiency. Unable to estimate RV systolic pressure due to insufficient tricuspid regurgitant envelope. Aortic Valve Trisinus/trileaflet aortic valve. Pulmonic Valve The pulmonic valve is not well visualized. Great Vessels Mildly dilated aortic root. Pericardium/Pleural No pericardial effusion. Medication Diluted definity 2ml given slow IV push to enhance endocardial definition. MMode/2D Measurements & Calculations LVIDd: 4.7 cm IVSd: 0.85 cm Ao root diam: 4.1 cm LVIDs: 2.8 cm LVPWd: 1.3 cm FS: 41.0 % __ LAV(MOD-bp): 47.5 ml LVAd ap4: 41.3 cm2 SV(MOD-sp4): 87.2 ml LAV(MOD-bp) Indexed: 18.5 ml/m2 LVLd ap4: 9.2 cm SI(MOD-sp4): 33.9 ml/m2 LAV(MOD-sp2): 52.1 ml EDV(MOD-sp4): 149.3 ml LAV(MOD-sp4): 40.1 ml EDV(sp4-el): 157.9 ml LVAs ap4: 23.1 cm2 LVLs ap4: 7.2 cm ESV(MOD-sp4): 62.1 ml ESV(sp4-el): 63.0 ml EF(MOD-sp4): 58.4 % EF(sp4-el): 60.1 % SV(sp4-el): 94.8 ml LA A4 area: 16.8 cm2 LA dimension(2D): 4.2 cm RA A4 area: 10.9 cm2 Time Measurements MV dec time: 0.22 sec Doppler Measurements & Calculations MV E max esng: 107.0 cm/sec Lat Peak E' Seng: 8.8 cm/sec Med Peak E' Seng: 7.5 cm/sec MV A max seng: 127.0 cm/sec E/E' lat: 12.1 E/E' med: 14.3 MV E/A: 0.84 MV V2 max: 129.6 cm/sec MV dec slope: 483.1 cm/sec2 Ao V2 max: 148.9 cm/sec MV max P.7 mmHg Ao max P.0 mmHg MV V2 mean: 94.5 cm/sec Ao V2 mean: 102.6 cm/sec MV mean P.8 mmHg Ao mean P.8 mmHg MV V2 VTI: 44.7 cm Ao V2 VTI: 32.6 cm AV (velocity ratio): 0.74 LV V1 max: 124.4 cm/sec PA V2 max: 101.3 cm/sec TR max seng: 203.4 cm/sec LV V1 max P.2 mmHg PA V2 mean: 77.1 cm/sec TR max P.1 mmHg LV V1 mean P.4 mmHg LV V1 mean: 87.2 cm/sec LV V1 VTI: 24.2 cm ECHO/Echo Complete W/ Contrast Interpretation Summary Mild concentric left ventricular hypertrophy. The left ventricular ejection fraction is 65 %. Stage 1 diastolic dysfunction. There is Mild focal posterior mitral annular calcification. Mildly dilated aortic root. Ordering Physician: Barrie Delgado Referring Physician: Kana Avelar Performed By: Siobhan Garcia RCS 02/12/25 1508 Date _ Julia Mcwilliams MD CC: Dr. Kana Avelar MD; Dr. Barrie Delgado DO Date Dictated: 02/12/25 1331 Date Transcribed: 02/12/25 1508 Trust Evaluation Supervisor: Signed [facility] Work Phone: Emergency Department Summary on 02-12-2025 Emergency Department Summary [facility] Medical Records Department [address] [place] [address] Emergency Department Summary 02/12/25 MR#: [id number] Acct: [id number] Name: ADEN SAMANIEGO Rep #: [id number] : 1965 59 From: Barrie Delgado DO PCP: Dr. Kana Avelar MD Status:DEP ER Location: ED HPI History of Present Illness Chief Complaint: Shortness of Breath Narrative Narrative: Patient is a 59-year-old male who is presenting today to have CTA to rule out PE. Patient has noted extensive DVT to left lower extremity. Patient was started on Eliquis last night. Patient took E liquis tablet last night and today. Patient had a outpatient DVT study in the vascular lab. Patient was recommended to come to the ER by internal medicine physician Storm TORRES who is one of the partners of the patient's PCP. Patient has no chest pain or shortness of breath. Patient has no risk factors for DVT at this time. Patient had traumatic injury over 7 years ago, nothing recent. No recent traveling. 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 Patient has no chest pain, shortness of breath, fever, chills, no other acute complaints. Patient has had swelling and pain to the left leg. Patient tells me that his DVT is from his left knee up into his left groin. Patient was sent to the ER to rule out PE by Dr. Collins REVIEW OF SYSTEMS: Unless otherwise stated in this report the patient's positive and negative responses for review of systems for constitutional, eyes, ENT, cardiovascular, respiratory, gastrointestinal, neurological, , musculoskeletal, and integument systems and related systems to the presenting problem are either stated in the history of present illness or were not pertinent or were negative for the symptoms and/or complaints related to the presenting medical problem. Vital signs reviewed and patient is not hypoxic. Patient was initially hypertensive, vital signs will be followed. General: The patient appears well and in no apparent distress. Patient is resting comfortably on cart. Not toxic, lethargic, or listless. Skin: Warm, dry, no pallor noted. There is no rash noted. Head: Normocephalic, atraumatic Eye: Normal conjunctiva, no drainage, EOMI. PERRL. Ears, Nose, Mouth, and Throat: oral mucosa is moist. Nares patent. Mouth without vesicles. Cardiovascular: Regular Rate and Rhythm, no murmurs, gallops, or rubs Respiratory: Patient is in no distress, no accessory muscle use, lungs are clear to auscultation, no wheezing, rales or rhonchi Back: non-tender, no CVA tenderness bilaterally to percussion. NO CTLS midline or paraspinal tenderness to palpation. GI: Soft, obese, no tenderness to palpation, no masses appreciated. No rebound, guarding, or rigidity noted. Musculoskeletal: The patient has full range of motion of all extremities and joints with no difficulty except the left lower extremity. Patient does have pain in the posterior aspect of left posterior thigh, popliteal fossa, and calf. Patient does have 2+ pitting edema to left lower extremity compared to the right. Patient's left leg is half a size larger compared to the right. Patient has no motor, no sensory deficits. Neurological: A O x4, normal speech, no focal neurological deficits. Psychiatric: Cooperative [facility] Medical History Anxiety and depression Hernia High cholesterol Back pain Neck pain Limb weakness Diabetes SOB (shortness of breath) Hypertension Home Medications ???Medication ???Instructions ???Recorded ???Last Taken ???Type lancets (Accu-Chek Softclix #100 ea 05/23/23 Unknown Rx Lancets) blood sugar diagnostic (Relion #100 ea 05/28/23 Unknown Rx Confirm-Micro strips) losartan 100 mg tablet 100 mg PO DAILY 90 days #90 tabs 0 07/14/24 Unknown Rx atorvastatin 40 mg tablet mg PO QDAY 10/12/24 Unknown Histor y glimepiride 4 mg tablet 4 mg PO BID 3 months #180 tabs 01/28 Unknown Rx metformin 1,000 mg tablet 1,000 mg PO BID 3 months #180 tabs 10/12/24 Unknown Rx pantoprazole 40 mg tablet,delayed 40 mg PO DAILY #90 tabs 11/30/24 Unknown Rx release (Protonix) hydrochlorothiazide 50 mg tablet 50 mg PO DAILY #90 tabs 12/31/24 U nknown Rx albuterol 90 mcg-budesonide 80 2 inh inhalation ONCE #10.7 grams 02/11/25 Unknown Rx mcg/actuation HFA aerosol inhaler (Airsupra) apixaban 5 mg tablet (Eliquis) 5 mg PO BID #14 tabs 02/11/25 Unkn own Rx apixaban 5 mg (74 tabs) tablets in See Rx Instructions PO PER PKG D IR 02/12/25 Unknown Rx a dose pack (Eliquis DVT-PE Treat #74 tabs 30D Start) Allergy/AdvReac Type Severity Reaction Status Date / Time No Known Allergies Allergy Verified 02/11/25 14:54 Surgical History H/O hernia repair H/O left wrist surgery (more content not included)... Normal [facility] Eosinophil percentageOrdered By: Barrie Delgado on 02-12-2025 Eosinophils/100 WBC (Bld) 3.0 % 0-5 [facility] Erythrocyte distribution wid th ratioOrdered By: Barrie Delgado on 02-12-2025 Erythrocyte distribution width (RBC) [Ratio] 11.9 % 11.6-14.6 [facility] Erythrocyte distribution wid th standard deviationOrdered By: Barrie Delgado on 02-12-2025 Erythrocyte distribution width (RBC) [Ratio] 39.8 fl 35.1-43.9 [facility] Glomerular filtration rate ( GFR) estimation/1.73 sq m using serum, plasma, or whole bOrdered By: Barrie Delgado on 02-12-2025 GFR/1.73 sq M.predicted among non-blacks MDRD (S/P/Bld) [Vol rate/Area] 76 mL/min/{1.73_m2} >60 [facility] Comment on above: mL/min/1.73m2 CKD-EP I Creatinine Equation (2020) Hematocrit Auto (Bld) [Volum e fraction]Ordered By: Barrie Delgado on 02-12-2025 Hematocrit (Bld) [Volume fraction] 37.8 % Low 40-54 [facility] Hemoglobin measurementOrdere d By: Barrie Delgado on 02-12-2025 Hemoglobin (Bld) [Mass/Vol] 13.0 g/dL 13.0-16.5 [facility] Immature granulocytes/100 WB C Auto (Bld)Ordered By: Barrie Delgado on 02-12-2025 Immature granulocytes/100 WBC (Bld) 0.500 % 0.0-0.9 [facility] Comment on above: IG% - Immature Granu locytes (promyelocytes, myelocytes and metamyelocytes) > 1% indicates that a LEFT SHIFT is Present. International normalized rat io (INR) calculationOrdered By: Barrie Delgado on 02-12-2025 INR Coag (Bld) [Relative time] 1.2 {INR} [facility] L501.4021on 02-12-2025 Trop T High Sen 24 ng/L High <=22 [facility] Comment on above: Performed By: #### L 500.2500, L100.0100, L501.5200, L503.7505, L501.4021 ####[facility] [address] [place], [address] MCV (mean corpuscular volume ) determinationOrdered By: Barrie Delgado on 02-12-2025 MCV (RBC) [Entitic vol] 90.9 fL 80-94 [facility] Magnesiumon 02-12-2025 Magnesium [Mass/Vol] 2.0 mg/dL Normal 1.5-2.2 [facility] Comment on above: Performed By: #### L 500.2500, L100.0100, L501.5200, L503.7505, L501.4021 ####[facility] [address] [place], [address] Magnesium measurement (mass/ volume)Ordered By: Barrie Delgado on 02-12-2025 Magnesium (Unsp spec) [Mass/Vol] 2.0 mg/dL 1.5-2.2 [facility] Mean corpuscular hemoglobin (MCH) determinationOrdered By: Barrie Delgado on 02-12-2025 MCH (RBC) [Entitic mass] 31.3 pg 27.0-32.0 [facility] Mean corpuscular hemoglobin concentration (MCHC) determinationOrdered By: Barrie Delgado on 02-12-2025 MCHC (RBC) [Mass/Vol] 34.4 g/dL 32-36 [facility] Mean platelet volume determi nationOrdered By: Barrie Delgado on 02-12-2025 Platelet mean volume (Bld) [Entitic vol] 11.7 fL 6.2-12.0 [facility] Monocyte percentageOrdered B y: Barrie Delgado on 02-12-2025 Monocytes/100 WBC (Bld) 6.7 % 0-10 [facility] Natriuretic peptide.B prohor familia N-Terminal [Mass/volume] in Serum or PlasmaOrdered By: Barrie Delgado on 02-12-2025 Natriuretic peptide.B prohormone N-Terminal [Mass/Vol] 119 pg/mL <900 [facility] Comment on above: Heart Failure Unlike ly: < 300 pg/mLHeart Failure Likely< 50 Years: > 450 pg/mL50-75 Years: > 900 pg/mL>75 Years: > 1800 pg/mL Neutrophil percentageOrdered By: Barrie Delgado on 02-12-2025 Neutrophils/100 WBC (Bld) 69.7 % 47-70 [facility] Nucleated red blood cell per centageOrdered By: Barrie Delgado on 02-12-2025 Nucleated RBC/100 WBC (Bld) [Ratio] 0 % 0-5 [facility] Partial Thromboplast Timeon 02-12-2025 aPTT Coag (Bld) [Time] 32.2 s Normal 24.1-36.[address] [facility] Comment on above: Performed By: #### L 300.4310, L300.3900 ####[facility] [address] [place], [address] Platelet countOrdered By: Nadeem Delgado on 02-12-2025 Platelets (Bld) [#/Vol] 236 10*3/uL 150-450 [facility] Potassium measurement (mass/ volume)Ordered By: Barrie Delgado on 02-12-2025 Potassium (Unsp spec) [Mass/Vol] 4.8 mmol/L 3.3-5.1 [facility] Pro- Brain NATRIURETIC PEPTI Adela 02-12-2025 Natriuretic peptide B (Bld) [Mass/Vol] 119 pg/mL Normal <=900 [facility] Comment on above: Result Comment: Hear t Failure Unlikely: < 300 pg/mL Heart Failure Likely < 50 Years: > 450 pg/mL 50-75 Years: > 900 pg/mL >75 Years: > 1800 pg/mL Performed By: #### L 500.2500, L100.0100, L501.5200, L503.7505, L501.4021 ####[facility] [address] [place], [address] Prothrombin Time w/INRon INR Coag (PPP) [Relative time] 1.2 {INR} Normal [facility] Comment on above: Performed By: #### L 300.4310, L300.3900 ####[facility] [address] [place], [address] PT Coag (PPP) [Time] 15.4 s High 11.7-14.9 [facility] Comment on above: Performed By: #### L 300.4310, L300.3900 ####[facility] [address] [place], [address] Prothrombin timeOrdered By: Barrie Delgado on 02-12-2025 PT Coag (PPP) [Time] 15.4 s High 11.7-14.9 [facility] RBC Auto (Bld) [#/Vol]Ordere d By: Barrie Delgado on 02-12-2025 RBC (Bld) [#/Vol] 4.16 10*6/uL Low 4.6-6.2 [facility] Serum creatinine measurement (mass/volume)Ordered By: Barrie Delgado on 02-12-2025 Creatinine [Mass/Vol] 1.11 mg/dL 0.70-1.20 [facility] Serum glucose measurement (m ass/volume)Ordered By: Barrie Delgado on 02-12-2025 Glucose [Mass/Vol] 188 mg/dL High 70-99 [facility] Serum or plasma calcium surinder urement (mass/volume)Ordered By: Barrie Delgado on 02-12-2025 Calcium [Mass/Vol] 9.0 mg/dL 7.6-11.0 [facility] Serum or plasma urea nitroge n measurement (mass/volume)Ordered By: Barrie Delgado on 02-12-2025 Urea nitrogen [Mass/Vol] 20 mg/dL High 4-19 [facility] Sodium levelOrdered By: Александр Delgado on 02-12-2025 Sodium [Moles/Vol] 140 mmol/L 133-145 [facility] Troponin T HS 2 HRon 025 Trop T High Sen 23 ng/L High <=22 [facility] Comment on above: Performed By: #### L 499.0042 ####[facility] [address] [place], [address] Troponin T HS 4 HRon 025 Trop T High Sen Normal <=22 [facility] Comment on above: Result Comment: NO S PECIMEN COLLECTED. PATIENT DEPARTED ED. Performed By: #### L 499.0043 #### [facility] [address] [place], [place], [address] Troponin T.cardiac [Mass/vol ume] in Serum or Plasma by High sensitivity methodOrdered By: Barrie Delgado on 02-12-2025 Troponin T.cardiac High sensitivity method [Mass/Vol] 23 ng/L High <22 [facility] Troponin T.cardiac High sensitivity method [Mass/Vol] 24 ng/L High <22 [facility] Venous Duplex US, Unilateral on 02-12-2025 Venous Duplex US, Unilateral [facility] [address] [place] [address] Venous Duplex US, Unilateral 02/12/25 0811 MR#: [id number] Acct: [id number] Name: ADEN SAMANIEGO Rep #: [id number] : 1965 59 From: Franklin Ramirez MD Attending Dr: HARDEEP Leon Status: REG CLI Ordering Dr: Russell Gomes Date: 02/12/25 Location: CVS Sex: M C Admitted: Reason For Study Reason For Study: Swelling LLE RIGHT LEFT CFV is compressible, spontaneous, phasic, competent Lt EIV and Lt Profunda V are DILATED and NON and demonstrates normal augmentation. COMPRESSIBLE consistent with acute DVT. Procedure Acute deep vein thrombosis is noted in the CFV. It is This is a venous duplex using B-mode, color flow and dilated and NONCOMPRESSIBLE. spectral Doppler. Acute deep vein thrombosis is noted in the FV. It is Exam performed in department. dilated and NONCOMPRESSIBLE. A preliminary report was called and/or faxed to Acute deep vein thrombosis is noted in the POP V. It Russell MEIER. is dilated and NONCOMPRESSIBLE. T/P Trunk is compressible. PTV is compressible. LT PerV is compressible. GSV is normal. VL/Venous Duplex US, Unilateral Interpretation Summary Acute deep vein thrombosis is noted in the left external iliac vein. Acute deep vein thrombosis is noted in the left profunda femoris vein. Acute deep vein thrombosis is noted in the left common femoral vein. Acute deep vein thrombosis is noted in the left femoral vein. Acute deep vein thrombosis is noted in the left popliteal vein. The remainder of the left lower extremity deep venous system is patent and compressible. The left great saphenous vein is patent and compressible. The right common femoral vein is patent and compressible. Ordering Physician: Russell Gomes Referring Physician: Kana Avelar Performed By: Kari Moyer, RDCS, RVT 02/12/251705 Date Franklin Ramirez MD CC: Dr. Kana Avelar MD; HARDEEP Leon Date Dictated: 02/12/25810 Date Transcribed: 02/12/251705 Trust Evaluation Supervisor: Signed Normal [facility] White blood cell (WBC) count Ordered By: Barrie Delgado on 02-12-2025 WBC (Bld) [#/Vol] 7.8 10*3/uL 4.4-11.0 [facility] D-Dimer Quantitative (DVT/PE )on 02-11-2025 D-DIMER QUANT 8.63 FEU/ug/m Invalid Interpretation Code 0.27-0.49 [facility] Comment on above: Order Comment: Comme nts: Please call On-Call physician with positive result Result Comment: D-Di tom ELEVATED (>0.49): Additional studies and clinical assessments are indicated to conclude diagnosis of: Deep Vein Thrombosis (DVT) or Pulmonary Embolism (PE) CRITICAL VALUE CALLED TO DR JUAN DAVID MACHADO 02/11/25 1826 Niya Rausch. RESULTS READ BACK BY SAME. Performed By: #### L 300.8000 #### [facility] [address] [place], [address] Internal Medicine Office Vis iton 02-11-2025 Internal Medicine Office Visit [facility] Internal Medicine [address] [place], [place] [address] OFFICE VISIT Date of Service: 02/11/25 MR#: [id number] Acct: [id number] Name: ADEN SAMANIEGO Rep #: [id number] : 1965 Provider: HARDEEP Leon Age/Sex: 59/M [place] [facility] [place] Status: Signed Intake Vital Signs 01/26/25 06:42 02/11/25 14:57 Height 6 ft 1 in 6 ft 1 in Weight: 303 lb 304 lb 6 oz BMI 39.9 40.1 BP 142/80 H 160/90 H Blood Pressure Location Lt brachial Rt brachial Position Sitting Sitting Respiration 16 Pulse 80 84 Pulse Source Monitor Temp 98.2 F 96.5 F L Temp Source Oral Temporal Pulse Oximetry (%) 95 94 Oxygen Delivery Method room air room air Intake Visit Reasons: Left leg swelling. Right knee pain. Shrtness of B Chief Complaint: left leg swelling and SOB Vet Assistant Required: No Accompanied by: Self Is patient in pain?: No Allergies No Known Allergies Allergy (Verified 02/11/25 14:54) Medications ???Medication ???Instructions ???Recorded ???Confirmed ???Type lancets (Accu-Chek Softclix #100 ea 05/23/23 02/11/25 Rx Lancets) blood sugar diagnostic (Relion #100 ea 05/28/23 02/11/25 Rx Confirm-Micro strips) losartan 100 mg tablet 100 mg PO DAILY 90 days #90 tabs 0 07/14/24 02/11/25 Rx atorvastatin 40 mg tablet mg PO QDAY 10/12/24 02/11/25 Histo ry glimepiride 4 mg tablet 4 mg PO BID 3 months #180 tabs 01/2802/11/25 Rx metformin 1,000 mg tablet 1,000 mg PO BID 3 months #180 tabs 10/12/24 02/11/25 Rx pantoprazole 40 mg tablet,delayed 40 mg PO DAILY #90 tabs 11/30/24 02/11/25 Rx release (Protonix) hydrochlorothiazide 50 mg tablet 50 mg PO DAILY #90 tabs 12/31/24 1 Rx albuterol 90 mcg-budesonide 80 2 inh inhalation ONCE #10.7 grams 02/11/25 02/11/25 Rx mcg/actuation HFA aerosol inhaler (Airsupra) apixaban 5 mg tablet (Eliquis) 5 mg PO BID #14 tabs 02/11/25 100 01/28 Rx Nurse's Note: left leg swelling right knee pain and suzette feel very weak collapsed legs 3 times PFSH Medical History Anxiety and depression Hernia High cholesterol Back pain Neck pain Limb weakness Diabetes SOB (shortness of breath) Hypertension Surgical History H/O hernia repair H/O left wrist surgery Social History Smoking Status: Never smoker alcohol intake: current alcohol intake frequency: holidays/special occasions only substance use type: does not use what type of physical activity do you participate in: bicycling frequency: 3-4 times per week do you feel safe at home: Yes HPI HPI Chief Complaint: left leg swelling and SOB Details: ADEN SAMANIEGO, is a 59 M who presents to the office today for multiple complaints. Patient states that has had swelling in the left leg for the past 2 weeks now. He states that there was no accidents, falls, trauma or anything else that he thought would have caused this. He states that it is pretty much swollen all the time. He states that sometimes it is worse than others. He has tried to ice and elevate this. He has even taken off work to be able to do these things. Nothing has improved the swelling Patient [facility] 3 weeks ago for sinus infection. He states that he still has some intermittent symptoms. He states that he does feel worse in the morning where he coughs so hard and long that he gets dry heaves. He states that most of the time this is no-productive and if he does get stuff up it is clear phlegm. He did take antibiotics and did have improvement but not resolution. ROS Const Constitutional: No body ache, excessive sweating, fatigue, fever(s), frequent falls, headache(s), snoring, weakness, weight change, sleep problems or change in appetite Eyes Eyes: No blurry vision, change in vision, eye pain or Light sensitivity ENT ENT: No abnormal hearing, ear or mastoid pain, tinnitus, nasal congestion, headache(s), neck pain or sore throat Resp Respiratory: No cough, shortness of breath, snoring or wheezing Cardio Cardiology: No chest pain at rest, chest pain with exertion, excessive sweating, shortness of breath, dyspnea on exertion, lightheadedness, orthopnea or palpitations Gastro GI: No abdominal pain, change in bowel habits, constipation, cramping, diarrhea, nausea/dyspepsia or vomiting Genitourinary Male: No burning urination, painful urination, urinary incontinence, urinary frequency or blood in urine Musc Musculoskeletal: No abnormal gait, joint pain, back pain, limited range of motion, neck pain, numbness, stiffness, tingling or Arthritis Skin Skin: No dry skin, redness, lesions, itchy eyes, rash o (more content not included)... Normal [facility] Urgent Care Visit Reporton 0 01-26-2025 Urgent Care Visit Report [facility] [address] , [address] [place] [address] OFFICE VISIT Date of Service: 01/26/25 MR#: [id number] Acct: [id number] Name: ADENADEN RIVERO Rep #: [id number] : 1965 Provider: HARDEEP Dowell Age/Sex: 59/M [place] [facility] [place] Status: Signed Intake Vital Signs 12/21/24 10:00 01/26/25 06:42 Height 6 ft 1 in 6 ft 1 in Weight: 299 lb 303 lb BMI 39.4 39.9 BP 162/90 H 142/80 H Blood Pressure Location Lt brachial Lt brachial Position Sitting Sitting Respiration 18 Pulse 67 80 Pulse Source Monitor Temp 97.0 F L 98.2 F Temp Source Temporal Oral Pulse Oximetry (%) 96 95 Oxygen Delivery Method room air room air Intake Visit Reasons: CONGESTION Chief Complaint: Congestion Accompanied by: Self Allergies No Known Allergies Allergy (Verified 01/26/25 06:41) Medications ???Medication ???Instructions ???Recorded ???Confirmed ???Type lancets (Accu-Chek Softclix #100 ea 05/23/23 01/26/25 Rx Lancets) blood sugar diagnostic (Relion #100 ea 05/28/23 01/26/25 Rx Confirm-Micro strips) losartan 100 mg tablet 100 mg PO DAILY 90 days #90 tabs 0 07/14/24 01/26/25 Rx atorvastatin 40 mg tablet mg PO QDAY 10/12/24 01/26/25 Histo ry glimepiride 4 mg tablet 4 mg PO BID 3 months #180 tabs 01/2801/26/25 Rx metformin 1,000 mg tablet 1,000 mg PO BID 3 months #180 tabs 10/12/24 01/26/25 Rx pantoprazole 40 mg tablet,delayed 40 mg PO DAILY #90 tabs 11/30/24 01/26/25 Rx release (Protonix) hydrochlorothiazide 50 mg tablet 50 mg PO DAILY #90 tabs 12/31/24 0 01/26/25 Rx amoxicillin 875 mg-potassium 1 tab PO BID #20 tabs 01/26/25 Rx clavulanate 125 mg tablet Nurse's Note: Congestion, coughing, headache from coughing, intermittent fevers. X 2 weeks. PFSH Medical History Anxiety and depression Hernia High cholesterol Back pain Neck pain Limb weakness Diabetes SOB (shortness of breath) Hypertension Surgical History H/O hernia repair H/O left wrist surgery Social History Smoking Status: Never smoker alcohol intake: current alcohol intake frequency: holidays/special occasions only substance use type: does not use what type of physical activity do you participate in: bicycling frequency: 3-4 times per week do you feel safe at home: Yes HPI HPI Chief Complaint: Congestion Details: ADEN SAMANIEGO, is a 59 M who presents to the office today for initial evaluation at the [facility] for approximately 2-week history of progressively worsening facial pressure/congestion with purulent postnasal drip/cough and PHELPS and intermittent fever (? Tmax). No complaints of chills, myalgias, fatigue, runny nose, or nausea/vomiting/diarrh ea. No complaints of chest pain/shortness of breath/dyspnea on exertion. No close contacts with similar complaints. No other associated symptoms and no other alleviating/aggravatin g factors. ROS Const Constitutional: No other (as above) Exam Const General: cooperative, healthy appearing and no acute distress Orientation: alert, awake HENMT Head: normal to inspection Ears: hearing grossly normal bilaterally, external ears normal, TM's normal bilaterally and EAC's normal Nose: external nose normal, nares normal, septum normal and no nasal discharge Face and sinus: normal facial exam, sinuses nontender (w/ bilateral maxillary fullness to palpation) and face symmetric Mouth: oral mucosae normal, lip normal, tongue normal and oropharynx normal Throat: posterior oropharynx normal, tonsils normal, uvula midline and postnasal drainage (Purulent) Eyes General: appearance normal, both eyes and all related structures Neck Neck: normal visual inspection, full ROM, no meningeal signs, supple and lymphadenopathy (Bilateral anterior cervical lymph node swelling/tender to palpation) Neck mass: No Thyroid: thyroid normal Chest Chest palpation inspection: normal inspection of the chest Resp Effort Inspection: normal respiratory effort and able to speak in complete sentences, moist nonproductive cough in office today Auscultation: Bilateral: Clear to Auscultation Cardio Palpation: normal PMI Rate: regular rate Rhythm: regular rhythm Heart Sounds: S1 normal, S2 normal Pulses: radial pulses present GI Inspection: normal to inspection Skin General: no rashes or lesions noted Neuro General: patient alert, patient awake Cognition: normal cognition Speech: speech normal Psych Appearance: grossly normal Mental Status: mental status grossly normal Mood: congruent mood Affect: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 [address] [place], [address] CO2 [Moles/Vol] 26.0 mmol/L Normal 21.0-32.0 [facility] Comment on above: Performed By: #### L 500.4100, L500.4050 ####[facility] [address] [place], [address] Creatinine [Mass/Vol] 1.18 mg/dL Normal 0.70-1.30 [facility] Comment on above: Result Comment: The validity of the calculated GFR GFRAA in patients over 70 years has not been determined. Clinical correlation is essential. Performed By: #### L 500.4100, L500.4050 ####[facility] [address] [place], [address] EST GFR - AA 81 mL/min Normal >60 [facility] Comment on above: Result Comment: Afri can Croatian GFR Calc Performed By: #### L 500.4100, L500.4050 ####[facility] [address] [place], [address] GAP 7 Normal 5-15 [facility] Comment on above: Performed By: #### L 500.4100, L500.4050 ####[facility] [address] [place], [address] GFR/1.73 sq M.predicted among non-blacks MDRD (S/P/Bld) [Vol rate/Area] 67 mL/min/{1.73_m2} Normal >60 [facility] Comment on above: Result Comment: Non- GFR Calc Performed By: #### L 500.4100, L500.4050 ####[facility] [address] [place], [address] Globulin (S) [Mass/Vol] 3.9 g/dL Normal 2.2-4.2 [facility] Comment on above: Performed By: #### L 500.4100, L500.4050 ####[facility] [address] [place], [address] Glucose [Mass/Vol] 188 mg/dL High 74-106 [facility] Comment on above: Result Comment: Fast ing Glucose result greater than or equal to 126 mg/dL suggests DIABETES MELLITUS per A.D.A. criteria. Performed By: #### L 500.4100, L500.4050 ####[facility] [address] [place], [address] Potassium [Moles/Vol] 4.2 mmol/L Normal 3.5-5.1 [facility] Comment on above: Performed By: #### L 500.4100, L500.4050 ####[facility] [address] [place], [address] Sodium [Moles/Vol] 135 mmol/L Low 136-145 [facility] Comment on above: Performed By: #### L 500.4100, L500.4050 ####[facility] [address] [place], [address] T PROT 7.5 g/dL Normal 6.4-8.2 [facility] Comment on above: Performed By: #### L 500.4100, L500.4050 ####[facility] [address] [place], [address] Urea nitrogen [Mass/Vol] 15 mg/dL Normal 7-18 [facility] Comment on above: Performed By: #### L 500.4100, L500.4050 ####[facility] [address] [place], [address] Internal Medicine Office Vis janna 05-20-2024 Internal Medicine Office Visit [facility] [address] [place] [address] [place] [address] OFFICE VISIT Date of Service: 05/20/24 MR#: [id number] Acct: [id number] Name: ADEN SAMANIEGO Rep #: [id number] : 1965 Provider: Dr. 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 Re-est/ex Cb pt Is patient in pain?: No Allergies No Known Allergies Allergy (Verified 05/20/24 13:19) Medications ???Medication ???Instructions ???Recorded ???Confirmed ???Type atorvastatin 40 mg tablet mg PO 05/20/23 05/20/24 History metformin 1,000 mg tablet mg PO 05/20/23 05/20/24 History lancets (Accu-Chek Softclix #100 ea 05/23/23 05/20/24 Rx Lancets) blood sugar diagnostic (Relion #100 ea 05/28/23 05/20/24 Rx Confirm-Micro strips) losartan 100 mg tablet 100 mg PO DAILY 90 days #90 tabs 10/31/23 05/20/24 Rx glimepiride 2 mg tablet 2 mg PO BID #90 tabs 01/23/24 05/20/24 Rx pantoprazole 40 mg tablet,delayed 40 mg PO DAILY #90 tabs 03/24/24 05/20/24 Rx release (Protonix) hydrochlorothiazide 50 mg tablet 50 mg PO DAILY #30 tabs 05/07/24 05/20/24 Rx Have you fallen in the past year?: No Nurse's Note: pt states that he is concerned regarding a large bulge in the center of his ABD. [facility] Medical History Hernia High cholesterol Back pain Neck pain Limb weakness Diabetes SOB (shortness of breath) Hypertension Surgical History H/O hernia repair H/O left wrist surgery Social History Smoking Status: Never smoker alcohol intake: current alcohol intake frequency: holidays/special occasions only substance use type: does not use what type of physical activity do you participate in: bicycling frequency: 3-4 times per week do you feel safe at home: Yes HPI HPI Chief Complaint: [employer]. Re-est/ex Cb pt Details: ADEN SAMANIEGO, is a 58 M who presents to the office today establish care. No acute concerns at this time. Reports a chronic history of midline abdominal bulge. Has been present for many years. No significant pain. Been seen by several physicians/surgeons and at some point, had considered surgery however, was told that this was not covered by insurance. No change in bowel or bladder habit. History of hypertension, blood pressure today is at 148/90 mmHg. No thiazide 50 mg and losartan which he states that he is taking consistently. He admits that he has not been so compliant with his diet and lifestyle due to the holidays but plans to make changes. Also history of diabetes mellitus type 2, currently on glimepiride 2 mg twice daily and metformin. An attempt had been [facility] at [facility] however these were not covered by his insurance. A1c today is at 8.9. Other chronic conditions are stable. ROS Const Constitutional: No body ache, chills, excessive sweating, fatigue, fever(s), frequent falls, headache(s), snoring, weight change, sleep problems, abnormal sleep pattern or change in appetite Eyes Eyes: No blurry vision, change in vision, bulging eyes, visual disturbances, eye pain or Light sensitivity ENT ENT: No abnormal hearing, ear or mastoid pain, tinnitus, balance problems, nosebleed/epistaxis, nasal congestion, headache(s), neck pain or sore throat Resp Respiratory: No cough, excessive phlegm production, pain on inspiration, shortness of breath, snoring or wheezing Cardio Cardiology: No chest pain at rest, chest pain with exertion, excessive sweating, shortness of breath, dyspnea on exertion, lightheadedness, orthopnea or palpitations Gastro GI: No abdominal pain, change in bowel habits, constipation, cramping, diarrhea, nausea/dyspepsia or vomiting Genitourinary Male: No burning urination, painful urination, urinary incontinence or urinary frequency Musc Musculoskeletal: No abnormal gait, joint pain, back pain, limited range of motion, neck pain, numbness or tingling Skin Skin: No dry skin, redness, excessive hair growth, yellowing of the eye, lesions, itchy eyes, rash or wounds Neuro Neurology: No abnormal gait, abnormal hearing, behavioral changes, unsteady gait/balance, frequent falls, headache(s), memory loss, numbness, tingling or visual disturbances Psych P (more content not included)... Normal [facility] Lipid Profileon 05-20-2024 Cholesterol [Mass/Vol] 198 mg/dL Normal [address] [facility] Comment on above: Result Comment: <200 mg/dL Desirable 200-240 mg/dL Borderline >240 mg/dL High Risk Performed By: #### L 500.4100, L500.4050 ####[facility] [address] [place], [address] Cholesterol in HDL [Mass/Vol] 43 mg/dL Normal [facility] Comment on above: Result Comment: The drugs N-Acetylcysteine and Metamizole may falsely depress this assay. Reference Range HDL <40 mg/dL Low HDL Cholesterol HDL >or= 60 mg/dL High HDL Cholesterol Performed By: #### L 500.4100, L500.4050 ####[facility] [address] [place], [address] Cholesterol in LDL [Mass/Vol] 113 mg/dL Normal 0-130 [facility] Comment on above: Performed By: #### L 500.4100, L500.4050 ####[facility] [address] [place], [address] Cholesterol in VLDL [Mass/Vol] 42 mg/dL High 5-40 [facility] Comment on above: Performed By: #### L 500.4100, L500.4050 ####[facility] [address] [place], [address] Triglyceride [Mass/Vol] 212 mg/dL High [facility] Comment on above: Result Comment: The drugs N-Acetylcysteine and Metamizole may falsely depress this assay. Serum Triglycerides Reference Interval Normal <150 mg/dL Borderline high 150 - 199 mg/dL High 200 - 499 mg/dL Very High > or = 500 mg/dL Performed By: #### L 500.4100, L500.4050 ####[facility] [address] [place], [address] CT CARDIAC SCORING WO IV CON TRASTon 06-26-2023 CT CARDIAC SCORING WO IV CONTRAST Interpreted By: Liza Madsen, STUDY: CT CARDIAC SCORING WO IV CONTRAST; 06/26/2023 8:41 am INDICATION: Signs/Symptoms:HTN. COMPARISON: None. ACCESSION NUMBER(S): [id number] ORDERING CLINICIAN: INTERFACE UNSPECIFIELDPROVIDER TECHNIQUE: Using prospective ECG gating, CT scan of the coronary arteries was performed without intravenous contrast. Coronary calcium scoring was performed according to the method of Agatston. FINDINGS: The score and distribution of calcium in the coronary arteries is as follows: LM 154 LAD 1137 LCx 908 RCA 1188 Total 3389 The visualized mid/lower ascending thoracic aorta measures 4.2 cm in diameter. The heart is normal in size. No pericardial effusion is present. No gross evidence of mediastinal or hilar lymphadenopathy or masses is identified. The visualized segments of the lungs are normally expanded. The visualized subdiaphragmatic structures appear intact. IMPRESSION: 1. Coronary artery calcium score of 3389*. *Coronary artery calcium scoring may be helpful in predicting the risk for future coronary heart disease events. According to the [employer] Clinical Expert Consensus Task Force, such testing provides important prognostic information in patients with more than one coronary heart disease risk factor. The coronary artery calcium score correlates with the annual risk of a non-fatal myocardial infarction or coronary heart disease . Coronary artery score Annual Risk 0-99 0.4% 100-399 1.3% >400 2.4% These three breakpoints correspond to lower, intermediate and high risk states for future coronary events. Such information should be used, along with appropriate clinical judgment, to make decisions regarding the intensity of risk factor management strategies to treat blood lipids and to modify other non-lipid coronary risk factors. Reference: [place] P et al. Circulation. 2007; 115:402-426 2. Aneurysmal dilatation of the ascending aorta. MACRO: None Signed by: Liza Madsen 06/26/2023 5:01 PM Dictation workstation: [id number] [facility] CT for calcium scoring WO co ntrast and CTA W contrast IV Heart and coronary arterieson 06-26-2023 1. Coronary artery calcium score of 3389*. *Coronary artery calcium scoring may be helpful in predicting the risk for future coronary heart disease events. According to the [employer] Clinical Expert Consensus Task Force, such testing provides important prognostic information in patients with more than one coronary heart disease risk factor. The coronary artery calcium score correlates with the annual risk of a non-fatal myocardial infarction or coronary heart disease . Coronary artery score Annual Risk 0-99 0.4% 100-399 1.3% >400 2.4% These three breakpoints correspond to lower, intermediate and high risk states for future coronary events. Such information should be used, along with appropriate clinical judgment, to make decisions regarding the intensity of risk factor management strategies to treat blood lipids and to modify other non-lipid coronary risk factors. Reference: [place] P et al. Circulation. 2007; 115:402-426 2. Aneurysmal dilatation of the ascending aorta. MACRO: None Signed by: Liza Madsen 06/26/2023 5:01 PM Dictation workstation: [id number] [facility] Interpreted By: Liza Madsen, STUDY: CT CARDIAC SCORING WO IV CONTRAST; 06/26/2023 8:41 am INDICATION: Signs/Symptoms:HTN. COMPARISON: None. ACCESSION NUMBER(S): [id number] ORDERING CLINICIAN: INTERFACE UNSPECIFIELDPROVIDER TECHNIQUE: Using prospective ECG gating, CT scan of the coronary arteries was performed without intravenous contrast. Coronary calcium scoring was performed according to the method of Agatston. FINDINGS: The score and distribution of calcium in the coronary arteries is as follows: LM 154 LAD 1137 LCx 908 RCA 1188 Total 3389 The visualized mid/lower ascending thoracic aorta measures 4.2 cm in diameter. The heart is normal in size. No pericardial effusion is present. No gross evidence of mediastinal or hilar lymphadenopathy or masses is identified. The visualized segments of the lungs are normally expanded. The visualized subdiaphragmatic structures appear intact. [facility] Liza Madsen MD - 06/26/2023 Interpreted By: Liza Madsen, STUDY: CT CARDIAC SCORING WO IV CONTRAST; 06/26/2023 8:41 am INDICATION: Signs/Symptoms:HTN. COMPARISON: None. ACCESSION NUMBER(S): [id number] ORDERING CLINICIAN: INTERFACE UNSPECIFIELDPROVIDER TECHNIQUE: Using prospective ECG gating, CT scan of the coronary arteries was performed without intravenous contrast. Coronary calcium scoring was performed according to the method of Agatston. FINDINGS: The score and distribution of calcium in the coronary arteries is as follows: LM 154 LAD 1137 LCx 908 RCA 1188 Total 3389 The visualized mid/lower ascending thoracic aorta measures 4.2 cm in diameter. The heart is normal in size. No pericardial effusion is present. No gross evidence of mediastinal or hilar lymphadenopathy or masses is identified. The visualized segments of the lungs are normally expanded. The visualized subdiaphragmatic structures appear intact. IMPRESSION: 1. Coronary artery calcium score of 3389*. *Coronary artery calcium scoring may be helpful in predicting the risk for future coronary heart disease events. According to the [employer] Clinical Expert Consensus Task Force, such testing provides important prognostic information in patients with more than one coronary heart disease risk factor. The coronary artery calcium score correlates with the annual risk of a non-fatal myocardial infarction or coronary heart disease . Coronary artery score Annual Risk 0-99 0.4% 100-399 1.3% >400 2.4% These three breakpoints correspond to lower, intermediate and high risk states for future coronary events. Such information should be used, along with appropriate clinical judgment, to make decisions regarding the intensity of risk factor management strategies to treat blood lipids and to modify other non-lipid coronary risk factors. Reference: [place] P et al. Circulation. 2007; 115:402-426 2. Aneurysmal dilatation of the ascending aorta. MACRO: None Signed by: Liza Madsen 06/26/2023 5:01 PM Dictation workstation: [id number] [facility] Work Phone: Radiology Study observation (narrative) [facility] Work Phone: CT for calcium scoring WO co ntrast and CTA W contrast IV Heart and coronary arteriesOrdered By: Liza Madsen on 06-26-2023 [facility] Work Phone: Absolute lymphocyte countOrd ered By: Cb Mulu on 05-21-2023 Lymphocytes Auto (Unsp spec) [#/Vol] 1.69 10*3/uL 0.83-4.51 [facility] Automated lymphocyte count a s percentage of total leukocytesOrdered By: Cb Hardwick on 05-21-2023 Lymphocytes/100 WBC Auto (Unsp spec) 26.3 % 19-41 [facility] Basophil percentageOrdered B y: Cb Hardwick on 05-21-2023 Basophils/100 WBC (Bld) 0.6 % 0-1 [facility] Bilirubin [Mass/Vol] 0.50 mg/dL 0.20-1.00 [facility] Comment on above: For patients on eltr ombopag therapy, use of Dimension [place] TBIL is not recommended. Chloride [Moles/Vol] 108 mmol/L 98-107 [facility] Cholesterol [Mass/Vol] 145 mg/dL <[address] [facility] Comment on above: <200 mg/dL Desirable 200-240 mg/dL Borderline >240 mg/dL High Risk Eosinophils/100 WBC (Bld) 2.8 % 0-5 [facility] Glucose [Mass/Vol] 195 mg/dL 74-106 [facility] Comment on above: Fasting Glucose resu lt greater than or equal to 126 mg/dL suggests DIABETES MELLITUS per A.D.A. criteria. Hemoglobin (Bld) [Mass/Vol] 12.8 g/dL 13.0-16.5 [facility] Monocytes/100 WBC (Bld) 6.7 % 0-10 [facility] [facility] Neutrophils (Bld) [#/Vol] 4.1 10*3/uL 2.0-7.7 [facility] Neutrophils/100 WBC (Bld) 63.4 % 47-70 [facility] Potassium [Moles/Vol] 4.6 mmol/L 3.5-5.1 [facility] Protein [Mass/Vol] 7.1 g/dL 6.4-8.2 [facility] Sodium [Moles/Vol] 140 mmol/L 136-145 [facility] Triglyceride [Mass/Vol] 68 mg/dL <199 [facility] Comment on above: The drugs N-Acetylcy steine and Metamizole may falsely depress this assay.Serum Triglycerides Reference Interval Normal <150 mg/dL Borderline high 150 - 199 mg/dL High 200 - 499 mg/dL Very High > or = 500 mg/dL WBC (Bld) [#/Vol] 6.4 10*3/uL 4.4-11.0 [facility] Determination of erythrocyte mean corpuscular volume (MCV)Ordered By: Cb Hardwick on 05-21-2023 MCV (RBC) [Entitic vol] 92.9 fL 80-94 [facility] Erythrocyte distribution wid th ratioOrdered By: Cb Hardwick on 05-21-2023 Erythrocyte distribution width (RBC) [Ratio] 12.1 % 11.6-14.6 [facility] Erythrocyte distribution wid th standard deviationOrdered By: Cb Hardwick on 05-21-2023 Erythrocyte distribution width (RBC) [Entitic vol] 41.5 fL 35.1-43.9 [facility] Hematocrit Auto (Bld) [Volum e fraction]Ordered By: Cb Hardwick on 05-21-2023 Hematocrit (Bld) [Volume fraction] 39.4 % 40-54 [facility] High density lipoprotein (HD L) measurementOrdered By: Cb Hardwick on 05-21-2023 Cholesterol in HDL (Body fld) [Mass/Vol] 50 mg/dL >40 [facility] Comment on above: The drugs N-Acetylcy steine and Metamizole may falsely depress this assay. Reference Range HDL <40 mg/dL Low HDL Cholesterol HDL >or= 60 mg/dL High HDL Cholesterol Immature granulocytes/100 WB C Auto (Bld)Ordered By: Cb Hardwick on 05-21-2023 Immature granulocytes/100 WBC (Bld) 0.200 % 0.0-0.9 [facility] Comment on above: IG% - Immature Granu locytes (promyelocytes, myelocytes and metamyelocytes) > 1% indicates that a LEFT SHIFT is Present. Laboratory - Chemistry and C hemistry - challengeOrdered By: Cb Hardwick on 05-21-2023 Albumin/Globulin [Mass ratio] 1.0 {ratio} 0.9-2.4 [facility] ALP [Catalytic activity/Vol] 53 U/L 45-117 [facility] ALT [Catalytic activity/Vol] 33 U/L 16-61 [facility] CO2 [Moles/Vol] 25.0 mmol/L 21.0-32.0 [facility] Globulin (S) [Mass/Vol] 3.5 g/dL 2.2-4.2 [facility] Urea nitrogen/Creatinine [Mass ratio] 13.5 mg/mg 10-20 [facility] Laboratory - Hematology and Cell countsOrdered By: Cb Hardwick on 05-21-2023 MCH (RBC) [Entitic mass] 30.2 pg 27.0-32.0 [facility] MCHC (RBC) [Mass/Vol] 32.5 g/dL 32-36 [facility] Nucleated RBC/100 WBC (Bld) [Ratio] 0 % 0-5 [facility] Platelets (Bld) [#/Vol] 247 10*3/uL 150-450 [facility] Low density lipoprotein (LDL ) cholesterol measurementOrdered By: Cb Hardwick on 05-21-2023 Cholesterol in LDL (Body fld) [Moles/Vol] 81 mg/dL 0-130 [facility] No Panel InformationOrdered By: Cb Hardwick on 05-21-2023 Estimated GFR (MDRD) Amer 112 mL/min >60 [facility] Comment on above: GFR Calc Estimated GFR (MDRD) Non-Af Amer 93 mL/min >60 [facility] Comment on above: Non- GFR Calc Platelet mean volume Ronal-Ec ker (Bld) [Entitic vol]Ordered By: Cb Hardwick on 05-21-2023 Platelet mean volume (Bld) [Entitic vol] 11.7 fL 6.2-12.0 [facility] RBC Auto (Bld) [#/Vol]Ordere d By: Cb Hardwick on 05-21-2023 RBC (Bld) [#/Vol] 4.24 10*6/uL 4.6-6.2 [facility] Screening prostate specific antigen (PSA) measurementOrdered By: Cb Hardwick on 05-21-2023 Prostate specific Ag IA [Mass/Vol] 0.93 ng/mL 0.00-4.00 [facility] Comment on above: This test was perfor med using the TPSA assay method for the[employer] chemistry system. Values obtained with differentassay methods cannot be used interchangably.When changing PSA assays in the course of monitoring apatient, additional sequential testing should be carriedout to confirm baseline values. Serum or plasma calcium surinder urement (mass/volume)Ordered By: Cb Hardwick on 05-21-2023 Calcium [Mass/Vol] 9.9 mg/dL 8.5-10.1 [facility] Serum or plasma creatinine m easurement (mass/volume)Ordered By: Cb Hardwick on 05-21-2023 Creatinine [Mass/Vol] 0.89 mg/dL 0.70-1.30 [facility] Comment on above: The validity of the calculated GFR & GFRAA in patients over 70 years has not been determined. Clinical correlation is essential. Serum or plasma thyroid stim ulating hormone (TSH) measurement (units/volume)Ordered By: Cb Hardwick on 05-21-2023 TSH Qn 1.39 uIU/mL 0.358-3.74 [facility] Serum or plasma urea nitroge n measurement (mass/volume)Ordered By: Cb Hardwick on 05-21-2023 Urea nitrogen [Mass/Vol] 12 mg/dL 7-18 [facility] Thin prep Papanicolaou smear with manual screeningOrdered By: Cb Hardwick on 05-21-2023 Thin prep Papanicolaou smear with manual screening 591.0 mg/L NO RANGE EST. [facility] Thin prep Papanicolaou smear with manual screening 3.6 g/dL 3.2-5.0 [facility] Thin prep Papanicolaou smear with manual screening 16 U/L 15-37 [facility] Thin prep Papanicolaou smear with manual screening 7 5-15 [facility] Thin prep Papanicolaou smear with manual screening 1.00 ng/dL 0.76-1.46 [facility] Very low density lipoprotein (VLDL) cholesterol measurementOrdered By: Cb Hardwick on 05-21-2023 Cholesterol in VLDL Calc [Moles/Vol] 14 mg/dL 5-40 [facility] Whole blood hemoglobin A1c/t otal hemoglobin ratio (mass fraction)Ordered By: Cb Hardwick on 05-21-2023 HbA1c (Bld) [Mass fraction] 8.9 % 3.8-5.6 [facility] Comment on above: Normal < 5.7 % Predi abetic 5.7 - 6.4 % Diabetic >or= 6.5 % Please note range changes. Laboratory - Microbiology an d Antimicrobial susceptibilityOrdered By: Gagan Chin on 02-19-2023 SARS-CoV-2 (COVID-19) RNA VICTOR HUGO+probe Ql (Unsp spec) [facility] SARS-CoV-2 (COVID-19) RNA VICTOR HUGO+probe Ql (Unsp spec) [facility] No Panel InformationOrdered By: Gagan Chin on 02-19-2023 Influenza Types A,B Direct FA (EHSAN) [facility] Influenza Types A,B Direct FA (EHSAN) [facility] RSV Ag EIAOrdered By: Gagan mora on 02-19-2023 RSV Ag Immune stain Ql (Tiss) [facility] RSV Ag Immune stain Ql (Tiss) [facility] Absolute lymphocyte countOrd ered By: Gagan Chin on 01-22-2023 Lymphocytes Auto (Unsp spec) [#/Vol] 2.24 10*3/uL 0.83-4.51 [facility] Basophil percentageOrdered B y: Gagan Chin on 01-22-2023 Basophils/100 WBC (Bld) 0.6 % 0-1 [facility] Bilirubin [Mass/Vol] 0.50 mg/dL 0.20-1.00 [facility] Comment on above: For patients on eltr ombopag therapy, use of Dim[place] TBIL is not recommended. Chloride [Moles/Vol] 101 mmol/L 98-107 [facility] Eosinophils/100 WBC (Bld) 2.0 % 0-5 [facility] Glucose [Mass/Vol] 436 mg/dL 74-106 [facility] Comment on above: Glucose result great er than or equal to 200 mg/dLsuggests DIABETES MELLITUS per A.D.A. criteria. Neutrophils (Bld) [#/Vol] 4.1 10*3/uL 2.0-7.7 [facility] Neutrophils/100 WBC (Bld) 59.1 % 47-70 [facility] Potassium [Moles/Vol] 4.3 mmol/L 3.5-5.1 [facility] Protein [Mass/Vol] 7.5 g/dL 6.4-8.2 [facility] Sodium [Moles/Vol] 134 mmol/L 136-145 [facility] WBC (Bld) [#/Vol] 7.0 10*3/uL 4.4-11.0 [facility] Blood erythrocytes count (nu mber/volume)Ordered By: Gagan Chin on 01-22-2023 RBC (Bld) [#/Vol] 4.54 10*6/uL 4.6-6.2 [facility] Blood hemoglobin measurement (mass/volume)Ordered By: Gagan Chin on 01-22-2023 Hemoglobin (Bld) [Mass/Vol] 13.8 g/dL 13.0-16.5 [facility] Blood lymphocytes/100 leukoc ytesOrdered By: Gagan Chin on 01-22-2023 Lymphocytes/100 WBC (Bld) 32.2 % 19-41 [facility] Blood monocytes/100 leukocyt esOrdered By: Gagan Chin on 01-22-2023 Monocytes/100 WBC (Bld) 5.7 % 0-10 [facility] Blood platelet mean volumeOr dered By: Gagan Chin on 01-22-2023 Platelet mean volume (Bld) [Entitic vol] 10.9 fL 6.2-12.0 [facility] Determination of erythrocyte mean corpuscular volume (MCV)Ordered By: Gagan Chin on 01-22-2023 MCV (RBC) [Entitic vol] 91.2 fL 80-94 [facility] Hematocrit Auto (Bld) [Volum e fraction]Ordered By: Gagan Chin on 01-22-2023 Hematocrit (Bld) [Volume fraction] 41.4 % 40-54 [facility] Laboratory - Chemistry and C hemistry - challengeOrdered By: Gagan Chin on 01-22-2023 ALP [Catalytic activity/Vol] 70 U/L 45-117 [facility] ALT [Catalytic activity/Vol] 31 U/L 16-61 [facility] CO2 [Moles/Vol] 27.0 mmol/L 21.0-32.0 [facility] Globulin (S) [Mass/Vol] 4.0 g/dL 2.2-4.2 [facility] Urea nitrogen/Creatinine [Mass ratio] 13.2 mg/mg 10-20 [facility] Laboratory - Hematology and Cell countsOrdered By: Gagan Chin on 01-22-2023 Erythrocyte distribution width (RBC) [Entitic vol] 39.7 fL 35.1-43.9 [facility] Erythrocyte distribution width (RBC) [Ratio] 11.9 % 11.6-14.6 [facility] Immature granulocytes/100 WBC (Bld) 0.400 % 0.0-0.9 [facility] Comment on above: IG% - Immature Granu locytes (promyelocytes, myelocytes and metamyelocytes) > 1% indicates that a LEFT SHIFT is Present. MCH (RBC) [Entitic mass] 30.4 pg 27.0-32.0 [facility] Nucleated RBC/100 WBC (Bld) [Ratio] 0 % 0-5 [facility] MCHC Auto (RBC) [Mass/Vol]Or dered By: Gagan Chin on 01-22-2023 MCHC (RBC) [Mass/Vol] 33.3 g/dL 32-36 [facility] No Panel InformationOrdered By: Gagan Chin on 01-22-2023 Estimated GFR (MDRD) Amer 85 mL/min >60 [facility] Comment on above: GFR Calc Estimated GFR (MDRD) Non-Af Amer 70 mL/min >60 [facility] Comment on above: Non- GFR Calc Thyroid Stimulating Hormone (TSH) 1.50 uIU/mL 0.358-3.74 [facility] Platelets bldOrdered By: Gagan Chin on 01-22-2023 Platelets (Bld) [#/Vol] 236 10*3/uL 150-450 [facility] Serum or plasma albumin surinder urement (mass/volume)Ordered By: Gagan Chin on 01-22-2023 Albumin [Mass/Vol] 3.5 g/dL 3.2-5.0 [facility] Serum or plasma albumin/glob ulin mass ratioOrdered By: Gagan Chin on 01-22-2023 Albumin/Globulin [Mass ratio] 0.9 {ratio} 0.9-2.4 [facility] Serum or plasma calcium usrinder urement (mass/volume)Ordered By: Gagan Chin on 01-22-2023 Calcium [Mass/Vol] 9.1 mg/dL 8.5-10.1 [facility] Serum or plasma creatinine m easurement (mass/volume)Ordered By: Gagan Chin on 01-22-2023 Creatinine [Mass/Vol] 1.14 mg/dL 0.70-1.30 [facility] Comment on above: The validity of the calculated GFR & GFRAA in patients over 70 years has not been determined. Clinical correlation is essential. Serum or plasma urea nitroge n measurement (mass/volume)Ordered By: Gagan Chin on 01-22-2023 Urea nitrogen [Mass/Vol] 15 mg/dL 7-18 [facility] Thin prep Papanicolaou smear with manual screeningOrdered By: Gagan Chin on 01-22-2023 Thin prep Papanicolaou smear with manual screening 12 U/L 15-37 [facility] Thin prep Papanicolaou smear with manual screening 6 5-15 [facility] Absolute lymphocyte countOrd ered By: Dr. Chin on 06-07-2022 Lymphocytes Auto (Unsp spec) [#/Vol] 2.39 10*3/uL 0.83-4.51 [facility] Basophil percentageOrdered B y: Dr. Chin on 06-07-2022 Basophils/100 WBC (Bld) 0.6 % 0-1 [facility] Bilirubin [Mass/Vol] 0.50 mg/dL 0.20-1.00 [facility] Comment on above: For patients on eltr ombopag therapy, use of Dim[place] TBIL is not recommended. Chloride [Moles/Vol] 100 mmol/L 98-107 [facility] Eosinophils/100 WBC (Bld) 2.9 % 0-5 [facility] Glucose [Mass/Vol] 326 mg/dL 74-106 [facility] Comment on above: Glucose result great er than or equal to 200 mg/dLsuggests DIABETES MELLITUS per A.D.A. criteria. Neutrophils (Bld) [#/Vol] 3.8 10*3/uL 2.0-7.7 [facility] Neutrophils/100 WBC (Bld) 55.0 % 47-70 [facility] Potassium [Moles/Vol] 4.2 mmol/L 3.5-5.1 [facility] Protein [Mass/Vol] 7.5 g/dL 6.4-8.2 [facility] Sodium [Moles/Vol] 134 mmol/L 136-145 [facility] WBC (Bld) [#/Vol] 6.9 10*3/uL 4.4-11.0 [facility] Blood erythrocytes count (nu mber/volume)Ordered By: Dr. Chin on 06-07-2022 RBC (Bld) [#/Vol] 4.74 10*6/uL 4.6-6.2 [facility] Blood hemoglobin measurement (mass/volume)Ordered By: Dr. Chin on 06-07-2022 Hemoglobin (Bld) [Mass/Vol] 14.5 g/dL 13.0-16.5 [facility] Blood lymphocytes/100 leukoc ytesOrdered By: Dr. Chin on 06-07-2022 Lymphocytes/100 WBC (Bld) 34.8 % 19-41 [facility] Blood monocytes/100 leukocyt esOrdered By: Dr. Chin on 06-07-2022 Monocytes/100 WBC (Bld) 6.4 % 0-10 [facility] Blood platelet mean volumeOr dered By: Dr. Chin on 06-07-2022 Platelet mean volume (Bld) [Entitic vol] 11.4 fL 6.2-12.0 [facility] Determination of erythrocyte mean corpuscular volume (MCV)Ordered By: Dr. Chin on 06-07-2022 MCV (RBC) [Entitic vol] 92.0 fL 80-94 [facility] Hematocrit Auto (Bld) [Volum e fraction]Ordered By: Dr. Chin on 06-07-2022 Hematocrit (Bld) [Volume fraction] 43.6 % 40-54 [facility] Laboratory - Chemistry and C hemistry - challengeOrdered By: Dr. Chin on 06-07-2022 ALP [Catalytic activity/Vol] 57 U/L 45-117 [facility] ALT [Catalytic activity/Vol] 29 U/L 16-61 [facility] CO2 [Moles/Vol] 25.0 mmol/L 21.0-32.0 [facility] Globulin (S) [Mass/Vol] 4.1 g/dL 2.2-4.2 [facility] Urea nitrogen/Creatinine [Mass ratio] 11.3 mg/mg 10-20 [facility] Laboratory - Hematology and Cell countsOrdered By: Dr. Chin on 06-07-2022 Erythrocyte distribution width (RBC) [Entitic vol] 40.8 fL 35.1-43.9 [facility] Erythrocyte distribution width (RBC) [Ratio] 12.1 % 11.6-14.6 [facility] Immature granulocytes/100 WBC (Bld) 0.300 % 0.0-0.9 [facility] Comment on above: IG% - Immature Granu locytes (promyelocytes, myelocytes and metamyelocytes) > 1% indicates that a LEFT SHIFT is Present. MCH (RBC) [Entitic mass] 30.6 pg 27.0-32.0 [facility] Nucleated RBC/100 WBC (Bld) [Ratio] 0 % 0-5 [facility] MCHC Auto (RBC) [Mass/Vol]Or dered By: Dr. Chin on 06-07-2022 MCHC (RBC) [Mass/Vol] 33.3 g/dL 32-36 [facility] No Panel InformationOrdered By: Dr. Chin on 06-07-2022 Estimated GFR (MDRD) Amer 113 mL/min >60 [facility] Comment on above: GFR Calc Estimated GFR (MDRD) Non-Af Amer 94 mL/min >60 [facility] Comment on above: Non- GFR Calc Thyroid Stimulating Hormone (TSH) 1.46 uIU/mL 0.358-3.74 [facility] Vitamin D 25-Hydroxy 19.1 ng/mL [facility] Comment on above: Vitamin D 25(OH) Sta tus Range Deficiency <20 ng/mL (50nmol/L) Insufficiency 20 - 30 ng/mL (50 - 75 nmol/L) Sufficiency 30 - 100 ng/mL (75 - 250 nmol/L) Toxicity >100 ng/mL (>250 nmol/L) Platelets bldOrdered By: Dr. Chin on 06-07-2022 Platelets (Bld) [#/Vol] 203 10*3/uL 150-450 [facility] Serum or plasma albumin surinder urement (mass/volume)Ordered By: Dr. Chin on 06-07-2022 Albumin [Mass/Vol] 3.4 g/dL 3.2-5.0 [facility] Serum or plasma albumin/glob ulin mass ratioOrdered By: Dr. Chin on 06-07-2022 Albumin/Globulin [Mass ratio] 0.8 {ratio} 0.9-2.4 [facility] Serum or plasma calcium surinder urement (mass/volume)Ordered By: Dr. Chin on 06-07-2022 Calcium [Mass/Vol] 9.1 mg/dL 8.5-10.1 [facility] Serum or plasma creatinine m easurement (mass/volume)Ordered By: Dr. Chin on 06-07-2022 Creatinine [Mass/Vol] 0.89 mg/dL 0.70-1.30 [facility] Comment on above: The validity of the calculated GFR & GFRAA in patients over 70 years has not been determined. Clinical correlation is essential. Serum or plasma urea nitroge n measurement (mass/volume)Ordered By: Dr. Chin on 06-07-2022 Urea nitrogen [Mass/Vol] 10 mg/dL 7-18 [facility] Thin prep Papanicolaou smear with manual screeningOrdered By: Dr. Chin on 06-07-2022 Thin prep Papanicolaou smear with manual screening 13 U/L 15-37 [facility] Thin prep Papanicolaou smear with manual screening 9 5-15 [facility] Absolute lymphocyte counton 08-30-2021 Lymphocytes Auto (Unsp spec) [#/Vol] 1.95 10*3/uL 0.83-4.51 [facility] Work Phone: Basophil percentageon 2021 Basophils/100 WBC (Bld) 0.8 % 0-1 [facility] Work Phone: Bilirubin [Mass/Vol] 0.40 mg/dL 0.20-1.00 [facility] Work Phone: Comment on above: For patients on eltr ombopag therapy, use of [place] TBIL is not recommended. Chloride [Moles/Vol] 98 mmol/L 98-107 [facility] Work Phone: Eosinophils/100 WBC (Bld) 2.2 % 0-5 [facility] Work Phone: Glucose [Mass/Vol] 459 mg/dL 74-106 [facility] Work Phone: Comment on above: Glucose result great er than or equal to 200 mg/dLsuggests DIABETES MELLITUS per A.D.A. criteria. Neutrophils (Bld) [#/Vol] 3.5 10*3/uL 2.0-7.7 [facility] Work Phone: Neutrophils/100 WBC (Bld) 58.2 % 47-70 [facility] Work Phone: Potassium [Moles/Vol] 4.2 mmol/L 3.5-5.1 [facility] Work Phone: Protein [Mass/Vol] 7.2 g/dL 6.4-8.2 [facility] Work Phone: Sodium [Moles/Vol] 134 mmol/L 136-145 [facility] Work Phone: Testosterone [Mass/Vol] 263.95 ng/dL [facility] Work Phone: Comment on above: CENTRAL 90% REFERENC E RANGES MALE AGE <50 197.44 - 669.58 ng/dL MALE AGE > or = 50 187.72 - 684.19 ng/dL FEMALE AGE <50 8.38 - 35.01 ng/dL FEMALE AGE > or = 50 <7.00 - 35.92 ng/dL Effective as of 11/29/20 WBC (Bld) [#/Vol] 6.0 10*3/uL 4.4-11.0 [facility] Work Phone: Blood erythrocytes count (nu mber/volume)on 08-30-2021 RBC (Bld) [#/Vol] 4.86 10*6/uL 4.6-6.2 [facility] Work Phone: Blood hemoglobin measurement (mass/volume)on 08-30-2021 Hemoglobin (Bld) [Mass/Vol] 15.1 g/dL 13.0-16.5 [facility] Work Phone: Blood lymphocytes/100 leukoc yteson 08-30-2021 Lymphocytes/100 WBC (Bld) 32.6 % 19-41 [facility] Work Phone: Blood monocytes/100 leukocyt eson 08-30-2021 Monocytes/100 WBC (Bld) 5.9 % 0-10 [facility] Work Phone: Blood platelet mean volumeon 08-30-2021 Platelet mean volume (Bld) [Entitic vol] 11.6 fL 6.2-12.0 [facility] Work Phone: Determination of erythrocyte mean corpuscular volume (MCV)on 08-30-2021 MCV (RBC) [Entitic vol] 89.1 fL 80-94 [facility] Work Phone: Hematocrit Auto (Bld) [Volum e fraction]on 08-30-2021 Hematocrit (Bld) [Volume fraction] 43.3 % 40-54 [facility] Work Phone: Laboratory - Chemistry and C hemistry - challengeon 08-30-2021 ALP [Catalytic activity/Vol] 78 U/L 45-117 [facility] Work Phone: ALT [Catalytic activity/Vol] 33 U/L 16-61 [facility] Work Phone: CO2 [Moles/Vol] 27.0 mmol/L 21.0-32.0 [facility] Work Phone: [phone] Globulin (S) [Mass/Vol] 3.6 g/dL 2.2-4.2 [facility] Work Phone: [phone] Urea nitrogen/Creatinine [Mass ratio] 9.1 mg/mg 10-20 [facility] Work Phone: [phone] Laboratory - Hematology and Cell countson 08-30-2021 Erythrocyte distribution width (RBC) [Entitic vol] 37.2 fL 35.1-43.9 [facility] Work Phone: [phone] Erythrocyte distribution width (RBC) [Ratio] 11.6 % 11.6-14.6 [facility] Work Phone: [phone] Immature granulocytes/100 WBC (Bld) 0.300 % 0.0-0.9 [facility] Work Phone: [phone] Comment on above: IG% - Immature Granu locytes (promyelocytes, myelocytes and metamyelocytes) > 1% indicates that a LEFT SHIFT is Present. MCH (RBC) [Entitic mass] 31.1 pg 27.0-32.0 [facility] Work Phone: [phone] Nucleated RBC/100 WBC (Bld) [Ratio] 0 % 0-5 [facility] Work Phone: [phone] MCHC Auto (RBC) [Mass/Vol]on 08-30-2021 MCHC (RBC) [Mass/Vol] 34.9 g/dL 32-36 [facility] Work Phone: No Panel Informationon 08-30 Estimated GFR (MDRD) Amer 100 mL/min >60 [facility] Work Phone: [phone] Comment on above: GFR Calc Estimated GFR (MDRD) Non-Af Amer 83 mL/min >60 [facility] Work Phone: [phone] Comment on above: Non- GFR Calc Thyroid Stimulating Hormone (TSH) 1.35 uIU/mL 0.358-3.74 [facility] Work Phone: [phone] Platelets bldon 08-30-2021 Platelets (Bld) [#/Vol] 207 10*3/uL 150-450 [facility] Work Phone: [phone] Serum or plasma albumin surinder urement (mass/volume)on 08-30-2021 Albumin [Mass/Vol] 3.6 g/dL 3.2-5.0 [facility] Work Phone: [phone] Serum or plasma albumin/glob ulin mass ratioon 08-30-2021 Albumin/Globulin [Mass ratio] 1.0 {ratio} 0.9-2.4 [facility] Work Phone: [phone] Serum or plasma calcium surinder urement (mass/volume)on 08-30-2021 Calcium [Mass/Vol] 8.6 mg/dL 8.5-10.1 [facility] Work Phone: [phone] Serum or plasma creatinine m easurement (mass/volume)on 08-30-2021 Creatinine [Mass/Vol] 0.99 mg/dL 0.70-1.30 [facility] Work Phone: Comment on above: The validity of the calculated GFR & GFRAA in patients over 70 years has not been determined. Clinical correlation is essential. Serum or plasma urea nitroge n measurement (mass/volume)on 08-30-2021 Urea nitrogen [Mass/Vol] 9 mg/dL 7-18 [facility] Work Phone: [phone] Thin prep Papanicolaou smear with manual screeningon 08-30-2021 Thin prep Papanicolaou smear with manual screening 15 U/L 15-37 [facility] Work Phone: [phone] Thin prep Papanicolaou smear with manual screening 9 5-15 [facility] Work Phone: [phone] Laboratory - Microbiology an d Antimicrobial susceptibilityon 07-27-2021 SARS-CoV-2 (COVID-19) RNA VICTOR HUGO+probe Ql (Unsp spec) Not detected [facility] Work Phone: [phone] No Panel Informationon 07-27 Influenza Types A,B Rapid (Clinic) Not detected [facility] Work Phone: Absolute lymphocyte counton 05-09-2021 Lymphocytes Auto (Unsp spec) [#/Vol] 1.84 10*3/uL 0.83-4.51 [facility] Work Phone: Basophil percentageon 2021 Basophils/100 WBC (Bld) 0.5 % 0-1 [facility] Work Phone: Bilirubin [Mass/Vol] 0.50 mg/dL 0.20-1.00 [facility] Work Phone: Comment on above: For patients on eltr ombopag therapy, use of Dimension [place] TBIL is not recommended. Chloride [Moles/Vol] 98 mmol/L 98-107 [facility] Work Phone: Eosinophils/100 WBC (Bld) 0.9 % 0-5 [facility] Work Phone: Glucose [Mass/Vol] 347 mg/dL 74-106 [facility] Work Phone: Comment on above: Glucose result great er than or equal to 200 mg/dLsuggests DIABETES MELLITUS per A.D.A. criteria.Please note revised GLUCOSE reference range effective 2017. Neutrophils (Bld) [#/Vol] 2.1 10*3/uL 2.0-7.7 [facility] Work Phone: Neutrophils/100 WBC (Bld) 48.8 % 47-70 [facility] Work Phone: Potassium [Moles/Vol] 4.5 mmol/L 3.5-5.1 [facility] Work Phone: Protein [Mass/Vol] 8.1 g/dL 6.4-8.2 [facility] Work Phone: Sodium [Moles/Vol] 135 mmol/L 136-145 [facility] Work Phone: Testosterone [Mass/Vol] 349.10 ng/dL [facility] Work Phone: Comment on above: CENTRAL 90% REFERENC E RANGES MALE AGE <50 197.44 - 669.58 ng/dL MALE AGE > or = 50 187.72 - 684.19 ng/dL FEMALE AGE <50 8.38 - 35.01 ng/dL FEMALE AGE > or = 50 <7.00 - 35.92 ng/dL Effective as of 11/29/20 WBC (Bld) [#/Vol] 4.4 10*3/uL 4.4-11.0 [facility] Work Phone: [phone] Blood erythrocytes count (nu mber/volume)on 05-09-2021 RBC (Bld) [#/Vol] 5.21 10*6/uL 4.6-6.2 [facility] Work Phone: Blood hemoglobin measurement (mass/volume)on 05-09-2021 Hemoglobin (Bld) [Mass/Vol] 15.7 g/dL 13.0-16.5 [facility] Work Phone: Blood lymphocytes/100 leukoc yteson 05-09-2021 Lymphocytes/100 WBC (Bld) 41.9 % 19-41 [facility] Work Phone: [phone] Blood monocytes/100 leukocyt eson 05-09-2021 Monocytes/100 WBC (Bld) 7.7 % 0-10 [facility] Work Phone: [phone] Blood platelet mean volumeon 05-09-2021 Platelet mean volume (Bld) [Entitic vol] 12.0 fL 6.2-12.0 [facility] Work Phone: [phone] Determination of erythrocyte mean corpuscular volume (MCV)on 05-09-2021 MCV (RBC) [Entitic vol] 89.4 fL 80-94 [facility] Work Phone: [phone] Hematocrit Auto (Bld) [Volum e fraction]on 05-09-2021 Hematocrit (Bld) [Volume fraction] 46.6 % 40-54 [facility] Work Phone: [phone] Laboratory - Chemistry and C hemistry - challengeon 01-04-2022 ALP [Catalytic activity/Vol] 89 U/L 45-117 [facility] Work Phone: [phone] ALT [Catalytic activity/Vol] 36 U/L 16-61 [facility] Work Phone: [phone] CO2 [Moles/Vol] 29.0 mmol/L 21.0-32.0 [facility] Work Phone: [phone] Globulin (S) [Mass/Vol] 4.5 g/dL 2.2-4.2 [facility] Work Phone: [phone] Urea nitrogen/Creatinine [Mass ratio] 14.7 mg/mg 10-20 [facility] Work Phone: [phone] Laboratory - Hematology and Cell countson 05-09-2021 Erythrocyte distribution width (RBC) [Entitic vol] 38.1 fL 35.1-43.9 [facility] Work Phone: [phone] Erythrocyte distribution width (RBC) [Ratio] 11.7 % 11.6-14.6 [facility] Work Phone: [phone] Immature granulocytes/100 WBC (Bld) 0.200 % 0.0-0.9 [facility] Work Phone: [phone] Comment on above: IG% - Immature Granu locytes (promyelocytes, myelocytes and metamyelocytes) > 1% indicates that a LEFT SHIFT is Present. MCH (RBC) [Entitic mass] 30.1 pg 27.0-32.0 [facility] Work Phone: [phone] Nucleated RBC/100 WBC (Bld) [Ratio] 0 % 0-5 [facility] Work Phone: [phone] MCHC Auto (RBC) [Mass/Vol]on 05-09-2021 MCHC (RBC) [Mass/Vol] 33.7 g/dL 32-36 [facility] Work Phone: [phone] Panel Informationon 05-09 Estimated GFR (MDRD) Amer 105 mL/min >60 [facility] Work Phone: [phone] Comment on above: GFR Calc Estimated GFR (MDRD) Non-Af Amer 87 mL/min >60 [facility] Work Phone: Comment on above: Non- GFR Calc Prostate Specific Antigen Screen 0.78 ng/mL 0.00-4.00 [facility] Work Phone: Comment on above: This test was perfor med using the TPSA assay method for [employer] chemistry system. Values obtained with differentassay methods cannot be used interchangably.When changing PSA assays in the course of monitoring apatient, additional sequential testing should be carriedout to confirm baseline values. Thyroid Stimulating Hormone (TSH) 1.35 uIU/mL 0.358-3.74 [facility] Work Phone: Platelets bldon 05-09-2021 Platelets (Bld) [#/Vol] 205 10*3/uL 150-450 [facility] Work Phone: Serum or plasma albumin surinder urement (mass/volume)on 05-09-2021 Albumin [Mass/Vol] 3.6 g/dL 3.2-5.0 [facility] Work Phone: Serum or plasma albumin/glob ulin mass ratioon 05-09-2021 Albumin/Globulin [Mass ratio] 0.8 {ratio} 0.9-2.4 [facility] Work Phone: Serum or plasma calcium surinder urement (mass/volume)on 05-09-2021 Calcium [Mass/Vol] 9.4 mg/dL 8.5-10.1 [facility] Work Phone: Serum or plasma creatinine m easurement (mass/volume)on 05-09-2021 Creatinine [Mass/Vol] 0.95 mg/dL 0.70-1.30 [facility] Work Phone: Comment on above: The validity of the calculated GFR & GFRAA in patients over 70 years has not been determined. Clinical correlation is essential. Serum or plasma urea nitroge n measurement (mass/volume)on 05-09-2021 Urea nitrogen [Mass/Vol] 14 mg/dL 7-18 [facility] Work Phone: Thin prep Papanicolaou smear with manual screeningon 05-09-2021 Thin prep Papanicolaou smear with manual screening 16 U/L 15-37 [facility] Work Phone: Thin prep Papanicolaou smear with manual screening 8 5-15 [facility] Work Phone: CORONAVIRUS PCR [CCL]on 12-05 COVID 19 Result [employer] Negative Normal [facility] Comment on above: Result Comment: Nega tive for COVID19 (SARS CoV2) by PCR. This test was developed and its performance characteristics determined by [facility] [place]. This test has been authorized by FDA under an Emergency Use Authorization (EUA). This test has been validated in accordance with the FDA's Guidance Document Policy for Diagnostics Testing in Laboratories Certified to Perform High Complexity Testing under CLIA prior to Emergency use Authorization for Coronavirus Disease 2019 during the Public Health Emergency issued on July 04, 2019. [facility] [address] [place] [address] Gonzales Teresa III, M.D. [id number] Performed By: #### 2 [id number] #### [place] [id number] COVID 19 Source [employer] Nasopharyngeal Swab Normal [facility] Comment on above: Result Comment: Luz Marina ected on 12/25 AT 1033: Previously reported as U Performed By: #### 2 [id number] #### [address] [address] Coronavirus 2019on 0 COVID 19 Result [employer] Normal Negative for COVID19 (SARS CoV2) by PCR. [facility] Comment on above: Result Comment: Nega tive for This test was developed and its performance characteristics determined by [facility] [place]. This test has been authorized by FDA under an Emergency Use Authorization (EUA). This test has been validated in accordance with the FDA's Guidance Document Policy for Diagnostics Testing in Laboratories Certified to Perform High Complexity Testing under CLIA prior to Emergency use Authorization for Coronavirus Disease 2019 during the Public Health Emergency issued on July 04, 2019. COVID19 (SARS This test was developed and its performance characteristics determined by [facility] [place]. This test has been authorized by FDA under an Emergency Use Authorization (EUA). This test has been validated in accordance with the FDA's Guidance Document Policy for Diagnostics Testing in Laboratories Certified to Perform High Complexity Testing under CLIA prior to Emergency use Authorization for Coronavirus Disease 2019 during the Public Health Emergency issued on July 04, 2019. CoV2) by PCR. This test was developed and its performance characteristics determined by [facility] [place]. This test has been authorized by FDA under an Emergency Use Authorization (EUA). This test has been validated in accordance with the FDA's Guidance Document Policy for Diagnostics Testing in Laboratories Certified to Perform High Complexity Testing under CLIA prior to Emergency use Authorization for Coronavirus Disease 2019 during the Public Health Emergency issued on July 04, 2019. Performed By: #### C OVID #### [facility] Routine Lab [address] [address] COVID 19 Source [employer] Normal [facility] Comment on above: Result Comment: Naso pharyngeal Corrected on 12/25 AT 1033: Previously reported as U Swab Corrected on 12/25 AT 1033: Previously reported as U Performed By: #### C OVID #### [facility] Routine Lab [address] [address] .Auto Diffon 03-12-2019 Ammonia (P) [Mass/Vol] 0.70 10 3/mcL Normal 0.09-1.40 [facility] ([place]) Comment on above: Performed By: #### C BC, ADIFF, ANEU, BMP, GFR, APTT, PRO #### [address] [address] Basophils (Bld) [#/Vol] 0.00 10 3/mcL Normal 0.00-0.27 [facility] ([place]) Comment on above: Performed By: #### C BC, ADIFF, ANEU, BMP, GFR, APTT, PRO #### [address] [address] Basophils/100 WBC (Bld) 0.7 % Normal 0.0-2.5 [facility] ([place]) Comment on above: Performed By: #### C BC, ADIFF, ANEU, BMP, GFR, APTT, PRO #### [address] [address] Eosinophils (Bld) [#/Vol] 0.20 10 3/mcL Normal 0.00-0.65 [facility] ([place]) Comment on above: Performed By: #### C BC, ADIFF, ANEU, BMP, GFR, APTT, PRO #### [address] [address] Eosinophils/100 WBC (Bld) 2.9 % Normal 0.0-6.0 [facility] ([place]) Comment on above: Performed By: #### C BC, ADIFF, ANEU, BMP, GFR, APTT, PRO #### [address] [address] Lymphocytes (Bld) [#/Vol] 1.90 10 3/mcL Normal 0.90-4.32 [facility] ([place]) Comment on above: Performed By: #### C BC, ADIFF, ANEU, BMP, GFR, APTT, PRO #### [address] [address] Lymphocytes/100 WBC (Bld) 27.1 % Normal 20.0-40.0 [facility] ([place] Comment on above: Performed By: #### C BC, ADIFF, ANEU, BMP, GFR, APTT, PRO #### [address] [address] Monocytes/100 WBC (Bld) 10.0 % Normal 2.0-13.0 [facility] ([place]) Comment on above: Performed By: #### C BC, ADIFF, ANEU, BMP, GFR, APTT, PRO #### [address] [address] Neutrophils/100 WBC (Bld) 59.3 % Normal 50.0-75.0 [facility] ([place]) Comment on above: Performed By: #### C BC, ADIFF, ANEU, BMP, GFR, APTT, PRO #### [address] [address] .GFRon 03-12-2019 GFR >60 Normal [facility] ([place]) Comment on above: Result Comment: GFR Population mean for , Non- Americans Ages 20-29 = 116 mL/min/1.73 sq.m. Ages 30-39 = 107 mL/min/1.73 sq.m. Ages 40-49 = 99 mL/min/1.73 sq.m. Ages 50-59 = 93 mL/min/1.73 sq.m. Ages 60-69 = 85 mL/min/1.73 sq.m. Ages 70+ = 75 mL/min/1.73 sq.m. Chronic Kidney Disease: Less than 60 mL/min/1.73 square meters End Stage Renal Disease: Less than 15 mL/min/1.73 square meters Performed By: #### C BC, ADIFF, ANEU, BMP, GFR, APTT, PRO #### [place] [address] GFR Non- >60 Normal [facility] ([place]) Comment on above: Result Comment: GFR Population mean for , Non- Americans Ages 20-29 = 116 mL/min/1.73 sq.m. Ages 30-39 = 107 mL/min/1.73 sq.m. Ages 40-49 = 99 mL/min/1.73 sq.m. Ages 50-59 = 93 mL/min/1.73 sq.m. Ages 60-69 = 85 mL/min/1.73 sq.m. Ages 70+ = 75 mL/min/1.73 sq.m. Chronic Kidney Disease: Less than 60 mL/min/1.73 square meters End Stage Renal Disease: Less than 15 mL/min/1.73 square meters Performed By: #### C BC, ADIFF, ANEU, BMP, GFR, APTT, PRO #### [address] [address] .NEUABSon 03-12-2019 Neutrophils (Bld) [#/Vol] 4.10 10 3/mcL Normal 2.25-8.10 [facility] ([place] Comment on above: Performed By: #### C BC, ADIFF, ANEU, BMP, GFR, APTT, PRO #### [address] [address] BMPon 03-12-2019 Creatinine [Mass/Vol] 0.69 mg/dL Normal 0.60-1.40 [facility] ([place]) Comment on above: Performed By: #### C BC, ADIFF, ANEU, BMP, GFR, APTT, PRO #### [place] [id number] Urea nitrogen/Creatinine [Mass ratio] 20.3 ratio Normal 10.0-22.0 [facility] ([place] Comment on above: Performed By: #### C BC, ADIFF, ANEU, BMP, GFR, APTT, PRO #### [place] [id number] Calcium [Mass/Vol] 8.1 mg/dL Low 8.4-10.1 [facility] ([place]) Comment on above: Performed By: #### C BC, ADIFF, ANEU, BMP, GFR, APTT, PRO #### [place] [id number] Chloride [Moles/Vol] 104 mmol/L Normal 98-110 [facility] ([place] Comment on above: Performed By: #### C BC, ADIFF, ANEU, BMP, GFR, APTT, PRO #### [address] [address] CO2 [Moles/Vol] 27 mmol/L Normal 22-32 [facility] ([place] Comment on above: Performed By: #### C BC, ADIFF, ANEU, BMP, GFR, APTT, PRO #### [place] [id number] Electrolyte Balance 6.0 mEq/L Normal 4.0-15.0 [facility] ([place]) Comment on above: Performed By: #### C BC, ADIFF, ANEU, BMP, GFR, APTT, PRO #### [place] [id number] Glucose [Mass/Vol] 143 mg/dL High 70-110 [facility] ([place]) Comment on above: Performed By: #### C BC, ADIFF, ANEU, BMP, GFR, APTT, PRO #### [place] [id number] Potassium [Moles/Vol] 4.1 mmol/L Normal 3.5-5.0 [facility] ([place]) Comment on above: Performed By: #### C BC, ADIFF, ANEU, BMP, GFR, APTT, PRO #### [place] [id number] Sodium [Moles/Vol] 137 mmol/L Normal 136-145 [facility] ([place] Comment on above: Performed By: #### C BC, ADIFF, ANEU, BMP, GFR, APTT, PRO #### [place] [id number] Urea nitrogen [Mass/Vol] 14.0 mg/dL Normal 8.0-22.0 [facility] ([place] Comment on above: Performed By: #### C BC, ADIFF, ANEU, BMP, GFR, APTT, PRO #### [address] [address] CBCon 03-12-2019 Erythrocyte distribution width (RBC) [Ratio] 12.6 % Normal 11.5-15.5 [facility] ([place] Comment on above: Performed By: #### C BC, ADIFF, ANEU, BMP, GFR, APTT, PRO #### [place] [id number] Hematocrit (Bld) [Volume fraction] 31.7 % Low 40.0-52.0 [facility] ([place] Comment on above: Performed By: #### C BC, ADIFF, ANEU, BMP, GFR, APTT, PRO #### [place] [id number] Hemoglobin (Bld) [Mass/Vol] 10.7 G/dL Low 13.0-17.5 [facility] ([place] Comment on above: Performed By: #### C BC, ADIFF, ANEU, BMP, GFR, APTT, PRO #### [address] [address] MCH (RBC) [Entitic mass] 31.6 pg Normal 27.0-33.0 [facility] ([place] Comment on above: Performed By: #### C BC, ADIFF, ANEU, BMP, GFR, APTT, PRO #### [address] [address] MCHC (RBC) [Mass/Vol] 33.8 G/dL Normal 32.0-36.0 [facility] ([place] Comment on above: Performed By: #### C BC, ADIFF, ANEU, BMP, GFR, APTT, PRO #### [place] [id number] MCV (RBC) [Entitic vol] 93.5 fL Normal 81.0-100.0 [facility] ([place]) Comment on above: Performed By: #### C BC, ADIFF, ANEU, BMP, GFR, APTT, PRO #### [address] [address] Platelet mean volume (Bld) [Entitic vol] 9.0 fL Normal 6.4-10.5 [facility] ([place] Comment on above: Performed By: #### C BC, ADIFF, ANEU, BMP, GFR, APTT, PRO #### [address] [address] Platelets (Bld) [#/Vol] 136 10 3/mcL Low 150-450 [facility] ([place] Comment on above: Performed By: #### C BC, ADIFF, ANEU, BMP, GFR, APTT, PRO #### [address] [address] RBC (Bld) [#/Vol] 3.39 10 6/mcL Low 4.50-6.00 [facility] ([place] Comment on above: Performed By: #### C BC, ADIFF, ANEU, BMP, GFR, APTT, PRO #### [address] [address] WBC (Bld) [#/Vol] 6.90 10 3/mcL Normal 4.50-10.80 [facility] ([place] Comment on above: Performed By: #### C BC, ADIFF, ANEU, BMP, GFR, APTT, PRO #### [place] [address] XR CHEST 2 VIEWSon 9 XR CHEST 2 VIEWS ORIGINAL XR CHEST 2 VIEWS CLINICAL STATEMENT: Shortness of breath. COMPARISON: None FINDINGS: The heart is normal in size and there is no vascular congestion present. There is some coarse linear atelectasis at the LEFT lower lobe. No airspace consolidation is present and there is no pleural fluid seen. There are minor degenerative changes noted in the spine. IMPRESSION: Coarse LEFT basilar atelectasis. Interpreted By: Armando Mendoza MD Preliminary Report By: Armando Mendoza MD Electronically Signed By: Armando Mendoza MD Dictated Date: 03/11/2019 4:15:35 PM Prelim Date: 03/11/2019 4:15:35 PM Sign Date: 03/11/2019 4:16:01 PM Ordering Provider:Ashia Combs [facility] ([place]) XR FLUORO 1-2 HRS TECH TIMEo n 03-11-2019 XR FLUORO 1-2 HRS TECH TIME ORIGINAL XR FLUORO 1-2 HRS TECH TIME ORDERING PROVIDER: HANNAH CLINICAL STATEMENT: Distal radius fx Technical Details: Tech Time - 1150p-100a; C-Arm # - 11; Total Dose - 0.67 mGy; Images - 8; Plate Driller - Ailyn; History - image left wrist; Fluoro Time - 16 sec; FINDINGS: Fluoroscopic spot images were provided for interpretation. They demonstrate the LEFT wrist. Detail is limited. Please see the operative note for details. Interpreted By: Brown Estrella Preliminary Report By: Brown Estrella Electronically Signed By: Brown Estrella Dictated Date: 03/11/2019 8:15:36 AM Prelim Date: 03/11/2019 8:15:36 AM Sign Date: 03/11/2019 8:15:47 AM Ordering Provider:Archie Couch [facility] ([place]) .Auto Diffon 03-10-2019 Ammonia (P) [Mass/Vol] 0.80 10 3/mcL Normal 0.09-1.40 [facility] ([place]) Comment on above: Performed By: #### C BC, ADIFF, ANEU, BMP, GFR, APTT, PRO #### [address] [address] Basophils (Bld) [#/Vol] 0.00 10 3/mcL Normal 0.00-0.27 [facility] ([place]) Comment on above: Performed By: #### C BC, ADIFF, ANEU, BMP, GFR, APTT, PRO #### [address] [address] Basophils/100 WBC (Bld) 0.2 % Normal 0.0-2.5 [facility] ([place]) Comment on above: Performed By: #### C BC, ADIFF, ANEU, BMP, GFR, APTT, PRO #### [address] [address] Eosinophils (Bld) [#/Vol] 0.00 10 3/mcL Normal 0.00-0.65 [facility] ([place]) Comment on above: Performed By: #### C BC, ADIFF, ANEU, BMP, GFR, APTT, PRO #### [address] [address] Eosinophils/100 WBC (Bld) 0.5 % Normal 0.0-6.0 [facility] ([place]) Comment on above: Performed By: #### C BC, ADIFF, ANEU, BMP, GFR, APTT, PRO #### [address] [address] Lymphocytes (Bld) [#/Vol] 1.90 10 3/mcL Normal 0.90-4.32 [facility] ([place]) Comment on above: Performed By: #### C BC, ADIFF, ANEU, BMP, GFR, APTT, PRO #### [address] [address] Lymphocytes/100 WBC (Bld) 21.5 % Normal 20.0-40.0 [facility] ([place]) Comment on above: Performed By: #### C BC, ADIFF, ANEU, BMP, GFR, APTT, PRO #### [address] [address] Monocytes/100 WBC (Bld) 8.8 % Normal 2.0-13.0 [facility] ([place]) Comment on above: Performed By: #### C BC, ADIFF, ANEU, BMP, GFR, APTT, PRO #### [address] [address] Neutrophils/100 WBC (Bld) 69.0 % Normal 50.0-75.0 [facility] ([place]) Comment on above: Performed By: #### C BC, ADIFF, ANEU, BMP, GFR, APTT, PRO #### [address] [address] .GFRon 03-10-2019 GFR Non- >60 Normal [facility] ([place]) Comment on above: Result Comment: GFR Population mean for , Non- Americans Ages 20-29 = 116 mL/min/1.73 sq.m. Ages 30-39 = 107 mL/min/1.73 sq.m. Ages 40-49 = 99 mL/min/1.73 sq.m. Ages 50-59 = 93 mL/min/1.73 sq.m. Ages 60-69 = 85 mL/min/1.73 sq.m. Ages 70+ = 75 mL/min/1.73 sq.m. Chronic Kidney Disease: Less than 60 mL/min/1.73 square meters End Stage Renal Disease: Less than 15 mL/min/1.73 square meters Performed By: #### C BC, ADIFF, ANEU, BMP, GFR, APTT, PRO #### [address] [address] GFR >60 Normal [facility] ([place]) Comment on above: Result Comment: GFR Population mean for , Non- Americans Ages 20-29 = 116 mL/min/1.73 sq.m. Ages 30-39 = 107 mL/min/1.73 sq.m. Ages 40-49 = 99 mL/min/1.73 sq.m. Ages 50-59 = 93 mL/min/1.73 sq.m. Ages 60-69 = 85 mL/min/1.73 sq.m. Ages 70+ = 75 mL/min/1.73 sq.m. Chronic Kidney Disease: Less than 60 mL/min/1.73 square meters End Stage Renal Disease: Less than 15 mL/min/1.73 square meters Performed By: #### C BC, ADIFF, ANEU, BMP, GFR, APTT, PRO #### [address] [address] .NEUABSon 03-10-2019 Neutrophils (Bld) [#/Vol] 6.10 10 3/mcL Normal 2.25-8.10 [facility] ([place]) Comment on above: Performed By: #### C BC, ADIFF, ANEU, BMP, GFR, APTT, PRO #### [address] [address] BMPon 03-10-2019 Urea nitrogen [Mass/Vol] 23.0 mg/dL High 8.0-22.0 [facility] ([place]) Comment on above: Performed By: #### C BC, ADIFF, ANEU, BMP, GFR, APTT, PRO #### [place] [address] Urea nitrogen/Creatinine [Mass ratio] 29.9 ratio High 10.0-22.0 [facility] ([place]) Comment on above: Performed By: #### C BC, ADIFF, ANEU, BMP, GFR, APTT, PRO #### [place] [id number] Calcium [Mass/Vol] 8.4 mg/dL Normal 8.4-10.1 [facility] ([place]) Comment on above: Performed By: #### C BC, ADIFF, ANEU, BMP, GFR, APTT, PRO #### [place] [address] Chloride [Moles/Vol] 103 mmol/L Normal 98-110 [facility] ([place]) Comment on above: Performed By: #### C BC, ADIFF, ANEU, BMP, GFR, APTT, PRO #### [place] [id number] CO2 [Moles/Vol] 27 mmol/L Normal 22-32 [facility] ([place]) Comment on above: Performed By: #### C BC, ADIFF, ANEU, BMP, GFR, APTT, PRO #### [address] [address] Creatinine [Mass/Vol] 0.77 mg/dL Normal 0.60-1.40 [facility] ([place]) Comment on above: Performed By: #### C BC, ADIFF, ANEU, BMP, GFR, APTT, PRO #### [address] [address] Electrolyte Balance 7.0 mEq/L Normal 4.0-15.0 [facility] ([place]) Comment on above: Performed By: #### C BC, ADIFF, ANEU, BMP, GFR, APTT, PRO #### [place] [id number] Glucose [Mass/Vol] 128 mg/dL High 70-110 [facility] ([place]) Comment on above: Performed By: #### C BC, ADIFF, ANEU, BMP, GFR, APTT, PRO #### [place] [id number] Potassium [Moles/Vol] 3.7 mmol/L Normal 3.5-5.0 [facility] ([place]) Comment on above: Performed By: #### C BC, ADIFF, ANEU, BMP, GFR, APTT, PRO #### [place] [id number] Sodium [Moles/Vol] 137 mmol/L Normal 136-145 [facility] ([place]) Comment on above: Performed By: #### C BC, ADIFF, ANEU, BMP, GFR, APTT, PRO #### [address] [address] CBCon 03-10-2019 Erythrocyte distribution width (RBC) [Ratio] 12.7 % Normal 11.5-15.5 [facility] ([place]) Comment on above: Performed By: #### C BC, ADIFF, ANEU, BMP, GFR, APTT, PRO #### [address] [address] Hematocrit (Bld) [Volume fraction] 36.4 % Low 40.0-52.0 [facility] ([place]) Comment on above: Performed By: #### C BC, ADIFF, ANEU, BMP, GFR, APTT, PRO #### [place] [id number] Hemoglobin (Bld) [Mass/Vol] 12.5 G/dL Low 13.0-17.5 [facility] ([place] Comment on above: Performed By: #### C BC, ADIFF, ANEU, BMP, GFR, APTT, PRO #### [place] [id number] MCH (RBC) [Entitic mass] 31.8 pg Normal 27.0-33.0 [facility] ([place]) Comment on above: Performed By: #### C BC, ADIFF, ANEU, BMP, GFR, APTT, PRO #### [place] [id number] MCHC (RBC) [Mass/Vol] 34.3 G/dL Normal 32.0-36.0 [facility] ([place] Comment on above: Performed By: #### C BC, ADIFF, ANEU, BMP, GFR, APTT, PRO #### [place] [id number] MCV (RBC) [Entitic vol] 92.5 fL Normal 81.0-100.0 [facility] ([place]) Comment on above: Performed By: #### C BC, ADIFF, ANEU, BMP, GFR, APTT, PRO #### [place] [id number] Platelet mean volume (Bld) [Entitic vol] 9.5 fL Normal 6.4-10.5 [facility] ([place] Comment on above: Performed By: #### C BC, ADIFF, ANEU, BMP, GFR, APTT, PRO #### [place] [id number] Platelets (Bld) [#/Vol] 158 10 3/mcL Normal 150-450 [facility] ([place]) Comment on above: Performed By: #### C BC, ADIFF, ANEU, BMP, GFR, APTT, PRO #### [place] [place] [id number] RBC (Bld) [#/Vol] 3.94 10 6/mcL Low 4.50-6.00 [facility]ly [facility], [facility] ([place] Comment on above: Performed By: #### C BC, ADIFF, ANEU, BMP, GFR, APTT, PRO #### [place] [address] WBC (Bld) [#/Vol] 8.90 10 3/mcL Normal 4.50-10.80 [facility], [facility] ([place] Comment on above: Performed By: #### C BC, ADIFF, ANEU, BMP, GFR, APTT, PRO #### [place] [address] [facility] ABO/Rh Interp Positive [facility] ([place]) Comment on above: Performed By: #### C BC, ADIFF, ANEU, BMP, GFR, APTT, PRO #### [place] [address] TABSon 03-10-2019 Antibody Screen Tango Negative Normal [facility] ([place]) Comment on above: Performed By: #### C BC, ADIFF, ANEU, BMP, GFR, APTT, PRO #### [place] [address] UAon 03-10-2019 Color (U) Dark Yellow Normal [facility] ([place] Comment on above: Performed By: #### C BC, ADIFF, ANEU, BMP, GFR, APTT, PRO #### [place] [address] Glucose (U) [Mass/Vol] 100 mg/dL Negative [facility] ([place]) Comment on above: Performed By: #### C BC, ADIFF, ANEU, BMP, GFR, APTT, PRO #### [place] [address] Ketones Ql (U) Trace Normal Neg-Trace [facility] ([place] Comment on above: Performed By: #### C BC, ADIFF, ANEU, BMP, GFR, APTT, PRO #### [place] [address] UA Appear Cloudy Clear [facility] ([place] Comment on above: Performed By: #### C BC, ADIFF, ANEU, BMP, GFR, APTT, PRO #### [address] [address] UA Blood Negative Normal Neg-Trace [facility] ([place] Comment on above: Performed By: #### C BC, ADIFF, ANEU, BMP, GFR, APTT, PRO #### [address] [address] UA Leuk Est Negative Normal Negative [facility] ([place] Comment on above: Performed By: #### C BC, ADIFF, ANEU, BMP, GFR, APTT, PRO #### [address] [address] UA Nitrite Negative Normal Negative [facility] ([place] Comment on above: Performed By: #### C BC, ADIFF, ANEU, BMP, GFR, APTT, PRO #### [place] [id number] UA pH 5.5 Normal 5.0 - 8.0 [facility] ([place] Comment on above: Performed By: #### C BC, ADIFF, ANEU, BMP, GFR, APTT, PRO #### [address] [address] UA Protein 30 mg/dL Normal Negative [facility] ([place] Comment on above: Performed By: #### C BC, ADIFF, ANEU, BMP, GFR, APTT, PRO #### [address] [address] UA Spec Grav >=1.030 1.006-1.029 [facility] ([place] Comment on above: Performed By: #### C BC, ADIFF, ANEU, BMP, GFR, APTT, PRO #### [address] [address] UA Specimen Type Void Normal [facility] ([place] Comment on above: Performed By: #### C BC, ADIFF, ANEU, BMP, GFR, APTT, PRO #### [address] [address] UA Urobilinogen 0.2 E.U./dL Normal 0.2-1.0 [facility] ([place] Comment on above: Performed By: #### C BC, ADIFF, ANEU, BMP, GFR, APTT, PRO #### [place] [address] Urobilinogen Qn (U) Small Neg-Trace [facility] ([place]) Comment on above: Performed By: #### C BC, ADIFF, ANEU, BMP, GFR, APTT, PRO #### [place] [address] UAMICon 03-10-2019 RBC (U) [#/Vol] Rare Normal 0-2 [facility] ([place] Comment on above: Performed By: #### C BC, ADIFF, ANEU, BMP, GFR, APTT, PRO #### [place] [address] UA Fine Granular Casts 0-2 [facility] ([place] Comment on above: Performed By: #### C BC, ADIFF, ANEU, BMP, GFR, APTT, PRO #### [address] [address] UA Hyal Cast Rare Normal [facility] ([place] Comment on above: Performed By: #### C BC, ADIFF, ANEU, BMP, GFR, APTT, PRO #### [address] [address] UA Mucous 3+ /hpf Normal [facility] ([place] Comment on above: Performed By: #### C BC, ADIFF, ANEU, BMP, GFR, APTT, PRO #### [address] [address] UA Squam Epithelial Negative Normal 0-20 [facility] ([place]) Comment on above: Performed By: #### C BC, ADIFF, ANEU, BMP, GFR, APTT, PRO #### [address] [address] UA Transitional Epithelial 0-2 Normal [facility] ([place] Comment on above: Performed By: #### C BC, ADIFF, ANEU, BMP, GFR, APTT, PRO #### [address] [address] UA WBC 3-5 Normal 0-5 [facility] ([place] Comment on above: Performed By: #### C BC, ADIFF, ANEU, BMP, GFR, APTT, PRO #### [address] [address] .Auto Diffon 03-09-2019 Ammonia (P) [Mass/Vol] 0.70 10 3/mcL Normal 0.09-1.40 [facility] ([place] Comment on above: Performed By: #### C BC, ADIFF, ANEU, BMP, GFR, APTT, PRO #### [address] [address] Basophils (Bld) [#/Vol] 0.00 10 3/mcL Normal 0.00-0.27 [facility] ([place] Comment on above: Performed By: #### C BC, ADIFF, ANEU, BMP, GFR, APTT, PRO #### [place] [address] Basophils/100 WBC (Bld) 0.1 % Normal 0.0-2.5 [facility] ([place]) Comment on above: Performed By: #### C BC, ADIFF, ANEU, BMP, GFR, APTT, PRO #### [address] [address] Eosinophils (Bld) [#/Vol] 0.00 10 3/mcL Normal 0.00-0.65 [facility] ([place] Comment on above: Performed By: #### C BC, ADIFF, ANEU, BMP, GFR, APTT, PRO #### [address] [address] Eosinophils/100 WBC (Bld) 0.2 % Normal 0.0-6.0 [facility] ([place] Comment on above: Performed By: #### C BC, ADIFF, ANEU, BMP, GFR, APTT, PRO #### [address] [address] Lymphocytes (Bld) [#/Vol] 1.20 10 3/mcL Normal 0.90-4.32 [facility] ([place]) Comment on above: Performed By: #### C BC, ADIFF, ANEU, BMP, GFR, APTT, PRO #### [address] [address] Lymphocytes/100 WBC (Bld) 6.9 % Low 20.0-40.0 [facility] ([place] Comment on above: Performed By: #### C BC, ADIFF, ANEU, BMP, GFR, APTT, PRO #### [address] [address] Monocytes/100 WBC (Bld) 3.7 % Normal 2.0-13.0 [facility] ([place]) Comment on above: Performed By: #### C BC, ADIFF, ANEU, BMP, GFR, APTT, PRO #### [address] [address] Neutrophils/100 WBC (Bld) 89.1 % High 50.0-75.0 [facility] ([place] Comment on above: Performed By: #### C BC, ADIFF, ANEU, BMP, GFR, APTT, PRO #### [address] [address] .GFRon 03-09-2019 GFR >60 Normal [facility] ([place] Comment on above: Result Comment: GFR Population mean for , Non- Americans Ages 20-29 = 116 mL/min/1.73 sq.m. Ages 30-39 = 107 mL/min/1.73 sq.m. Ages 40-49 = 99 mL/min/1.73 sq.m. Ages 50-59 = 93 mL/min/1.73 sq.m. Ages 60-69 = 85 mL/min/1.73 sq.m. Ages 70+ = 75 mL/min/1.73 sq.m. Chronic Kidney Disease: Less than 60 mL/min/1.73 square meters End Stage Renal Disease: Less than 15 mL/min/1.73 square meters Performed By: #### C BC, ADIFF, ANEU, BMP, GFR, APTT, PRO #### [address] [address] GFR Non- >60 Normal [facility] ([place] Comment on above: Result Comment: GFR Population mean for , Non- Americans Ages 20-29 = 116 mL/min/1.73 sq.m. Ages 30-39 = 107 mL/min/1.73 sq.m. Ages 40-49 = 99 mL/min/1.73 sq.m. Ages 50-59 = 93 mL/min/1.73 sq.m. Ages 60-69 = 85 mL/min/1.73 sq.m. Ages 70+ = 75 mL/min/1.73 sq.m. Chronic Kidney Disease: Less than 60 mL/min/1.73 square meters End Stage Renal Disease: Less than 15 mL/min/1.73 square meters Performed By: #### C BC, ADIFF, ANEU, BMP, GFR, APTT, PRO #### [address] [address] .NEUABSon 03-09-2019 Neutrophils (Bld) [#/Vol] 15.70 10 3/mcL High 2.25-8.10 [facility] ([place] Comment on above: Performed By: #### C BC, ADIFF, ANEU, BMP, GFR, APTT, PRO #### [address] [address] APTTon 03-09-2019 aPTT Coag (Bld) [Time] 30.8 s Normal 25.0-35.0 [facility] ([place]) Comment on above: Result Comment: For Heparin anticoagulation therapy, the recommended therapeutic range is: 54-77 seconds (APTT Correlation with Anti-Xa therapeutic range of 0.3-0.7 units/ml). PLEASE REFERENCE THE PHARMACY PROTOCOL FOR DOSING. Performed By: #### C BC, ADIFF, ANEU, BMP, GFR, APTT, PRO #### [address] [address] aPTT Coag (Bld) [Time] None Normal [facility] ([place]) Comment on above: Performed By: #### C BC, ADIFF, ANEU, BMP, GFR, APTT, PRO #### [address] [address] BMPon 03-09-2019 Calcium [Mass/Vol] 8.7 mg/dL Normal 8.4-10.1 [facility] ([place]) Comment on above: Performed By: #### C BC, ADIFF, ANEU, BMP, GFR, APTT, PRO #### [address] [address] Chloride [Moles/Vol] 107 mmol/L Normal 98-110 [facility] ([place] Comment on above: Performed By: #### C BC, ADIFF, ANEU, BMP, GFR, APTT, PRO #### [address] [address] CO2 [Moles/Vol] 25 mmol/L Normal 22-32 [facility] ([place] Comment on above: Performed By: #### C BC, ADIFF, ANEU, BMP, GFR, APTT, PRO #### [address] [address] Creatinine [Mass/Vol] 0.64 mg/dL Normal 0.60-1.40 [facility] ([place]) Comment on above: Performed By: #### C BC, ADIFF, ANEU, BMP, GFR, APTT, PRO #### [address] [address] Electrolyte Balance 7.0 mEq/L Normal 4.0-15.0 [facility] ([place]) Comment on above: Performed By: #### C BC, ADIFF, ANEU, BMP, GFR, APTT, PRO #### [address] [address] Glucose [Mass/Vol] 211 mg/dL High 70-110 [facility] ([place] Comment on above: Performed By: #### C BC, ADIFF, ANEU, BMP, GFR, APTT, PRO #### [address] [address] Potassium [Moles/Vol] 3.8 mmol/L Normal 3.5-5.0 [facility] ([place]) Comment on above: Performed By: #### C BC, ADIFF, ANEU, BMP, GFR, APTT, PRO #### [address] [address] Sodium [Moles/Vol] 139 mmol/L Normal 136-145 [facility] ([place] Comment on above: Performed By: #### C BC, ADIFF, ANEU, BMP, GFR, APTT, PRO #### [place] [address] Urea nitrogen [Mass/Vol] 11.0 mg/dL Normal 8.0-22.0 [facility] ([place] Comment on above: Performed By: #### C BC, ADIFF, ANEU, BMP, GFR, APTT, PRO #### [place] [address] Urea nitrogen/Creatinine [Mass ratio] 17.2 ratio Normal 10.0-22.0 [facility] ([place] Comment on above: Performed By: #### C BC, ADIFF, ANEU, BMP, GFR, APTT, PRO #### [place] [id number] CBCon 03-09-2019 Erythrocyte distribution width (RBC) [Ratio] 12.7 % Normal 11.5-15.5 [facility] ([place] Comment on above: Performed By: #### C BC, ADIFF, ANEU, BMP, GFR, APTT, PRO #### [place] [address] Hematocrit (Bld) [Volume fraction] 41.8 % Normal 40.0-52.0 [facility] ([place] Comment on above: Performed By: #### C BC, ADIFF, ANEU, BMP, GFR, APTT, PRO #### [place] [id number] Hemoglobin (Bld) [Mass/Vol] 14.1 G/dL Normal 13.0-17.5 [facility] ([place] Comment on above: Performed By: #### C BC, ADIFF, ANEU, BMP, GFR, APTT, PRO #### [place] [id number] MCH (RBC) [Entitic mass] 31.4 pg Normal 27.0-33.0 [facility] ([place] Comment on above: Performed By: #### C BC, ADIFF, ANEU, BMP, GFR, APTT, PRO #### [address] [address] MCHC (RBC) [Mass/Vol] 33.7 G/dL Normal 32.0-36.0 [facility] ([place] Comment on above: Performed By: #### C BC, ADIFF, ANEU, BMP, GFR, APTT, PRO #### [place] [id number] MCV (RBC) [Entitic vol] 93.2 fL Normal 81.0-100.0 [facility] ([place]) Comment on above: Performed By: #### C BC, ADIFF, ANEU, BMP, GFR, APTT, PRO #### [place] [address] Platelet mean volume (Bld) [Entitic vol] 9.3 fL Normal 6.4-10.5 [facility] ([place] Comment on above: Performed By: #### C BC, ADIFF, ANEU, BMP, GFR, APTT, PRO #### [place] [id number] Platelets (Bld) [#/Vol] 186 10 3/mcL Normal 150-450 [facility] ([place] Comment on above: Performed By: #### C BC, ADIFF, ANEU, BMP, GFR, APTT, PRO #### [place] [id number] RBC (Bld) [#/Vol] 4.49 10 6/mcL Low 4.50-6.00 [facility] ([place] Comment on above: Performed By: #### C BC, ADIFF, ANEU, BMP, GFR, APTT, PRO #### [place] [id number] WBC (Bld) [#/Vol] 17.70 10 3/mcL High 4.50-10.80 [facility] ([place] Comment on above: Performed By: #### C BC, ADIFF, ANEU, BMP, GFR, APTT, PRO #### [place] [id number] CT ABD/PELVIS W/ IV CONTRAST ONLYon 11-04-2019 CT ABD/PELVIS W/ IV CONTRAST ONLY ORIGINAL CT abdomen and pelvis with IV contrast 03/09/2019 10:49 AM History: pain; trauma patient Best visualized on the sagittal reconstructions is a mild acute fracture of the anterior superior portion of L3. There is mild loss of height centrally. There is a questionable minimal compression deformity of the superior endplate of L4. There is no significant paraspinal hematoma identified. No other acute traumatic abnormalities are noted. The lung bases, liver, spleen, pancreas and adrenal glands are normal. The kidneys are normal and there are no solid masses or hydronephrosis. The kidneys function in a normal symmetric fashion. There are no solid or cystic abdominal masses, free fluid, free air or lymphadenopathy. There are no inflammatory--type changes. Imaging through the pelvis fails to demonstrate any solid or cystic mass, free fluid or lymphadenopathy. There are no inflammatory changes here. Summary: 1. Mild acute appearing compression fracture deformity of the anterior superior corner of L3 and questionable minimal compression deformity of the superior endplate of L4. No complications are noted. 2. No other significant findings identified. Interpreted By: Brown Etsrella Preliminary Report By: Brown Estrella Electronically Signed By: Brown Estrella Dictated Date: 03/09/2019 10:55:51 AM Prelim Date: 03/09/2019 10:55:51 AM Sign Date: 03/09/2019 11:00:38 AM Ordering Provider:Brian Mendoza [facility] ([place]) CT HEAD OR BRAIN W/O CONTRAS Ton 03-09-2019 CT HEAD OR BRAIN W/O CONTRAST ORIGINAL Head CT, 03/09/2019 10:25 AM INDICATION: pain; trauma patient COMPARISON: No TECHNIQUE: Routine non-contrast head CT. This exam was performed according to our departmental dose optimization program, and includes the following measures where applicable: automated exposure control, adjustment of the mAs and/or kVp according to patient size and/or exam, and an iterative reconstruction algorithm. FINDINGS: The study is mildly degraded by motion. The ventricles and sulci are normal in size and configuration. There are no abnormal intra or extra-axial fluid collections. There is mild irregular decreased attenuation in the cerebral white matter; phelps-white matter differentiation is maintained. Calvaria and the bones of the base of the skull are intact. Paranasal sinuses are clear. This examination was performed within 24 hours of presentation to the hospital. IMPRESSION: Mild small vessel ischemic changes, otherwise unremarkable. Mild motion artifact. Interpreted By: Stevan Millard MD Preliminary Report By: Stevan Millard MD Electronically Signed By: Stevan Millard MD Dictated Date: 03/09/2019 10:25:41 AM Prelim Date: 03/09/2019 10:25:41 AM Sign Date: 03/09/2019 10:27:24 AM Ordering Provider:Brian [facility]) CT SPINE CERVICAL W/O CONTRA STon 03-09-2019 CT SPINE CERVICAL W/O CONTRAST ORIGINAL CT SPINE CERVICAL W/O CONTRAST, 03/09/2019 10:37 AM INDICATION: pain; trauma patient COMPARISON: No Technique: Cervical spine CT with sagittal and coronal reconstructions. This exam was performed according to our departmental dose optimization program, and includes the following measures where applicable: automated exposure control, adjustment of the mAs and/or kVp according to patient size and/or exam, and an iterative reconstruction algorithm. FINDINGS: There are no acute fractures or dislocations. Alignment is within normal limits. The individual vertebral bodies are intact. The prevertebral soft tissues are unremarkable in appearance. There is mild atelectasis or consolidation in the posterior RIGHT apex. IMPRESSION: No acute fracture. Possible minimal RIGHT consolidation, completely visualized here. Interpreted By: Stevan Millard MD Preliminary Report By: Stevan Millard MD Electronically Signed By: Stevan Millard MD Dictated Date: 03/09/2019 10:38:49 AM Prelim Date: 03/09/2019 10:38:49 AM Sign Date: 03/09/2019 10:40:19 AM Ordering Provider:Brian Mendoza [facility]) CT THORAX W/ CONTRASTon CT THORAX W/ CONTRAST ORIGINAL CT chest with IV contrast 03/09/2019 10:50 AM History: pain; trauma patient - suspect aortic rupture, pulmonary trauma Routine imaging was performed . There is no evidence for thoracic aortic aneurysm, dissection or other significant vascular abnormality. The lungs are well expanded and there are no infiltrates, effusions or pneumothorax. There are couple small peripheral scars and there is mild dependent atelectasis at the lung bases. No lung masses or nodules are seen. The wilbert and mediastinum are normal. No bony abnormalities are identified. Summary: 1. No evidence for traumatic or other aortic abnormality. 2. No significant or acute abnormalities noted. Interpreted By: Brown Estrella Preliminary Report By: Brown Estrella Electronically Signed By: Brown Estrella Dictated Date: 03/09/2019 10:53:32 AM Prelim Date: 03/09/2019 10:53:32 AM Sign Date: 03/09/2019 10:55:42 AM Ordering Provider:Brian Quezada [facility] ([place]) PROon 03-09-2019 INR Coag (PPP) [Relative time] 1.2 {INR} Normal [facility]) Comment on above: Result Comment: The [employer] (CHEST, 1992, [id number]) recommended therapeutic range for oral anticoagulant therapy is: LOW RISK: Prophylaxis of venous thrombosis INR: 2.0-3.0 Treatment of pulmonary embolism 2.0-3.0 Prevention of systemic embolism 2.0-3.0 HIGH RISK: Mechanical prosthetic valves 2.5-3.5 Performed By: #### C BC, ADIFF, ANEU, BMP, GFR, APTT, PRO #### [address] [address] PT Coag (PPP) [Time] 14.2 s Normal 9.0-14.6 [facility] ([place]) Comment on above: Result Comment: Effe ctive 11/18/07, Protime results may be affected by some antibiotics (i.e. Ciprofloxacin, Azithromycin, Bactrim) which may potentiate the action of oral anticoagulants, with further increase in Protime/INR. Performed By: #### C ROCHELLE, ADIFF, ANEU, BMP, GFR, APTT, PRO #### [address] [address] TROPIon 03-09-2019 Troponin I.cardiac [Mass/Vol] ng/mL Normal 0.000-0.040 [facility] ([place]) Comment on above: Result Comment: Trop onin I reference ranges (01/11/14): 0.00-0.040 ng/mL Negative and non-diagnostic. >0.040 ng/mL Consistent with cardiac damage, increased clinical risk and possibility of myocardial infarction. Serial measurements, a rise & fall in test results, clinical history, appropriate symptoms and/or ECG changes may help assess possibility of NC. *Other non-acute coronary syndrome conditions such as CHF, myocarditis, pulmonary emboli, sepsis and cardiac surgery could result in myocardial damage and increased troponin levels. Performed By: #### C BC, ADIFF, ANEU, BMP, GFR, APTT, PRO #### [facility] [address] [place] [address] XR ANKLE AND FOOT 6 VIEWS LE FTon 03-09-2019 XR ANKLE AND FOOT 6 VIEWS LEFT ORIGINAL XR ANKLE AND FOOT 6 VIEWS LEFT CLINICAL STATEMENT: pain. Patient fell, injured. COMPARISON: None FINDINGS: There is mild to moderate medial soft tissue swelling at the proximal portion of the foot. There are degenerative changes at the ankle joint. Corticated osseous densities at the tip of the fibula are compatible with remote fracture fragments. There is a small plantar calcaneal spur present and vascular calcification is also seen. There is no fracture or dislocation identified on these images. IMPRESSION: Soft tissue swelling, no acute fracture seen. Interpreted By: Armando Mendoza MD Preliminary Report By: Armando Mendoza MD Electronically Signed By: Armando Mendoza MD Dictated Date: 03/09/2019 11:11:17 AM Prelim Date: 03/09/2019 11:11:17 AM Sign Date: 03/09/2019 11:12:05 AM Ordering Provider:Brian Mendoza [facility] ([place]) XR ELBOW MINIMUM 3 VIEWS LEF Ton 03-09-2019 XR ELBOW MINIMUM 3 VIEWS LEFT ORIGINAL Left elbow 3 views 03/09/2019 3:26 PM: History: Pain 3 portable views were obtained. An acute or healing fracture is not seen. There is no dislocation or joint effusion. The joint surfaces are smooth. The soft tissues are unremarkable. Summary: Normal portable exam of the elbow. Interpreted By: Brown Estrella Preliminary Report By: Brown Estrella Electronically Signed By: Brown Estrella Dictated Date: 03/09/2019 3:32:08 PM Prelim Date: 03/09/2019 3:32:08 PM Sign Date: 03/09/2019 3:33:20 PM Ordering Provider:Van Carter [facility] ([place]) XR WRIST MINIMUM 3 VIEWS LEF Ton 03-09-2019 XR WRIST MINIMUM 3 VIEWS LEFT ORIGINAL XR WRIST 3 VIEWS LEFT CLINICAL STATEMENT: post reduction. COMPARISON: LEFT wrist 03/09/2019 at 10:44 AM There has been interval partial reduction of the comminuted intra-articular fracture of the distal LEFT radius. No other new findings identified through the cast. Summary: As above. Interpreted By: Brown Estrella Preliminary Report By: Brown Estrella Electronically Signed By: Brown Estrella Dictated Date: 03/09/2019 3:30:59 PM Prelim Date: 03/09/2019 3:30:59 PM Sign Date: 03/09/2019 3:32:02 PM Ordering Provider:Van Carter [facility] ([place]) XR WRIST MINIMUM 3 VIEWS LEFT ORIGINAL XR WRIST MINIMUM 3 VIEWS LEFT CLINICAL STATEMENT: injury, artifact compromises initial XR. COMPARISON: Study same day FINDINGS: Artifact has been removed. There is a comminuted intra-articular fracture of the distal radius, with dorsal displacement and angulation of the distal fracture fragment. Several small comminuted fragments are also seen. The distal ulna is unremarkable. The scapholunate distance is increased,, and this is compatible with ligamentous injury. I do not identify any additional fracture or dislocation on these images. IMPRESSION: 1. Comminuted intra-articular displaced and angulated fracture of the distal radius. 2. Scapholunate ligament disruption with increased distance between these 2 bones. Interpreted By: Armando Mendoza MD Preliminary Report By: Armando Mendoza MD Electronically Signed By: Armando Mendoza MD Dictated Date: 03/09/2019 11:03:24 AM Prelim Date: 03/09/2019 11:03:24 AM Sign Date: 03/09/2019 11:05:39 AM Ordering Provider:Brian Mendoza [facility] ([place] XR WRIST MINIMUM 3 VIEWS LEFT ORIGINAL XR WRIST MINIMUM 3 VIEWS LEFT CLINICAL STATEMENT: pain. Injured. COMPARISON: None FINDINGS: The study is compromised by very prominent overlying artifact. There is a fracture of the distal radius with dorsal angular deformity of the distal fracture fragment and probably some dorsal displacement as well as. There may be an impacted component. Carpal evaluation is quite limited by artifact. I do not definitely identify an additional fracture on these images. IMPRESSION: Distal radial fracture. Interpreted By: Armando Mendoza MD Preliminary Report By: Armando Mendoza MD Electronically Signed By: Armando Mendoza MD Dictated Date: 03/09/2019 10:18:24 AM Prelim Date: 03/09/2019 10:18:24 AM Sign Date: 03/09/2019 10:19:13 AM Ordering Provider:Brian Mendoza [facility] ([place]) Vital Signs Date Time Vital Sign Value Performing Clinician Praveena nicholas 03-04-2025 13:30-0400 Diastolic blood pressure 84 mm[Hg] Dr. Kana Avelar MD Work Phone: [facility] 03-04-2025 13:30-0400 Systolic blood pressure 142 mm[Hg] Dr. Kana Avelar MD Work Phone: [facility] 03-04-2025 12:51-0400 Body height 185.[address] Kana Avelar MD Work Phone: [facility] 03-04-2025 12:51-0400 Body mass index (BMI) [Ratio] 40.8 kg/m2 Dr. Kana Avelar MD Work Phone: [facility] 03-04-2025 12:51-0400 Body temperature 97.6 [degF] Dr. Kana Avelar MD Work Phone: [facility] 03-04-2025 12:51-0400 Body weight 140.[address] Kana Avelar MD Work Phone: [facility] 03-04-2025 12:51-0400 Heart rate 80 /min Dr. Kana Avelar MD Work Phone: [facility] 03-04-2025 12:51-0400 Respiratory rate 16 /min Dr. Kana Avelar MD Work Phone: [facility] 03-04-2025 12:51-0400 SaO2% (BldA) [Mass fraction] 97 % Dr. Kana Avelar MD Work Phone: [facility] 02-24-2025 15:30-0400 Body temperature 98 [degF] Dr. Kana Avelar MD Work Phone: [facility] 02-24-2025 15:30-0400 Body weight 140.[address] Kana Avelar MD Work Phone: [facility] 02-24-2025 15:30-0400 Diastolic blood pressure 88 mm[Hg] Dr. Kana Avelar MD Work Phone: [facility] 02-24-2025 15:30-0400 Heart rate 82 /min Dr. Kana Avelar MD Work Phone: [facility] 02-24-2025 15:30-0400 Respiratory rate 16 /min Dr. Kana Avelar MD Work Phone: [facility] 02-24-2025 15:30-0400 SaO2% (BldA) [Mass fraction] 96 % Dr. Kana Avelar MD Work Phone: [facility] 02-24-2025 15:30-0400 Systolic blood pressure 177 mm[Hg] Dr. Kana Avelar MD Work Phone: [facility] 02-17-2025 08:15-0400 Body temperature 97.8 [degF] Dr. Kana Avelar MD Work Phone: [facility] 02-17-2025 08:15-0400 Body weight 138.[address] Kana Avelar MD Work Phone: [facility] 02-17-2025 08:15-0400 Diastolic blood pressure 92 mm[Hg] Dr. Kana Avelar MD Work Phone: [facility] 02-17-2025 08:15-0400 Heart rate 73 /min Dr. Kana Avelar MD Work Phone: [facility] 02-17-2025 08:15-0400 Respiratory rate 16 /min Dr. Kana Avelar MD Work Phone: [facility] 02-17-2025 08:15-0400 SaO2% (BldA) [Mass fraction] 96 % Dr. Kana Avelar MD Work Phone: [facility] 02-17-2025 08:15-0400 Systolic blood pressure 174 mm[Hg] Dr. Kana Avelar MD Work Phone: [facility] 02-12-2025 15:50-0400 Body temperature 98.7 [degF] Dr. Kana Avelar MD Work Phone: [facility] 02-12-2025 15:50-0400 Diastolic blood pressure 99 mm[Hg] Dr. Kana Avelar MD Work Phone: [facility] 02-12-2025 15:50-0400 Heart rate 74 /min Dr. Kana Avelar MD Work Phone: [facility] 02-12-2025 15:50-0400 Respiratory rate 19 /min Dr. Kana Avelar MD Work Phone: [facility] 02-12-2025 15:50-0400 SaO2% (BldA) [Mass fraction] 96 % Dr. Kana Avelar MD Work Phone: [facility] 02-12-2025 15:50-0400 Systolic blood pressure 177 mm[Hg] Dr. Kana Avelar MD Work Phone: [facility] 02-12-2025 08:58-0400 Body height 185.[address] Kana Avelar MD Work Phone: [facility] 02-12-2025 08:58-0400 Body mass index (BMI) [Ratio] 40.1 kg/m2 Dr. Kana Avealr MD Work Phone: [facility] 02-12-2025 08:58-0400 Body weight 137.[address] Kana Avelar MD Work Phone: [facility] 02-11-2025 14:57-0400 Body mass index (BMI) [Ratio] 40.1 kg/m2 Dr. Kana Avelar MD Work Phone: [facility] 02-11-2025 14:57-0400 Body temperature 96.5 [degF] Dr. Kana Avelar MD Work Phone: [facility] 02-11-2025 14:57-0400 Body weight 138.[address] Kana Avelar MD Work Phone: [facility] 02-11-2025 14:57-0400 Diastolic blood pressure 90 mm[Hg] Dr. Kana Avelar MD Work Phone: [facility] 02-11-2025 14:57-0400 Heart rate 84 /min Dr. Kana Avelar MD Work Phone: [facility] 02-11-2025 14:57-0400 Respiratory rate 16 /min Dr. Kana Avelar MD Work Phone: [facility] 02-11-2025 14:57-0400 SaO2% (BldA) [Mass fraction] 94 % Dr. Kana Avelar MD Work Phone: [facility] 02-11-2025 14:57-0400 Systolic blood pressure 160 mm[Hg] Dr. Kana Avelar MD Work Phone: [facility] 01-26-2025 06:42-0400 Body height 185.[address] Kana Avelar MD Work Phone: [facility] 01-26-2025 06:42-0400 Body mass index (BMI) [Ratio] 39.9 kg/m2 Dr. Kana Avelar MD Work Phone: [facility] 01-26-2025 06:42-0400 Body temperature 98.2 [degF] Dr. Kana Avelar MD Work Phone: [facility] 01-26-2025 06:42-0400 Body weight 137.[address] Kana Avelar MD Work Phone: [facility] 01-26-2025 06:42-0400 Diastolic blood pressure 80 mm[Hg] Dr. Kana Avelar MD Work Phone: [facility] 01-26-2025 06:42-0400 Heart rate 80 /min Dr. Kana Avelar MD Work Phone: [facility] 01-26-2025 06:42-0400 SaO2% (BldA) [Mass fraction] 95 % Dr. Kana Avelar MD Work Phone: [facility] 01-26-2025 06:42-0400 Systolic blood pressure 142 mm[Hg] Dr. Kana Avelar MD Work Phone: [facility] 12-21-2024 10:00-0400 Body height 185.[address] Kana Avelar MD Work Phone: [facility] 12-21-2024 10:00-0400 Body mass index (BMI) [Ratio] 39.4 kg/m2 Dr. Kana Avelar MD Work Phone: [facility] 12-21-2024 10:00-0400 Body temperature 97 [degF] Dr. Kana Avelar MD Work Phone: [facility] 12-21-2024 10:00-0400 Body weight 135.[address] Kana Avelar MD Work Phone: [facility] 12-21-2024 10:00-0400 Diastolic blood pressure 90 mm[Hg] Dr. Kana Avelar MD Work Phone: [facility] 12-21-2024 10:00-0400 Heart rate 67 /min Dr. Kana Avelar MD Work Phone: [facility] 12-21-2024 10:00-0400 Respiratory rate 18 /min Dr. Kana Avelar MD Work Phone: [facility] 12-21-2024 10:00-0400 SaO2% (BldA) [Mass fraction] 96 % Dr. Kana Avelar MD Work Phone: [facility] 12-21-2024 10:00-0400 Systolic blood pressure 162 mm[Hg] Dr. Kana Avelar MD Work Phone: [facility] 10-12-2024 09:03-0400 Body height 185.[address] Kana Avelar MD Work Phone: [facility] 10-12-2024 09:03-0400 Body mass index (BMI) [Ratio] 39.4 kg/m2 Dr. Kana Avelar MD Work Phone: [facility] 10-12-2024 09:03-0400 Body temperature 97.2 [degF] Dr. Kana Avelar MD Work Phone: [facility] 10-12-2024 09:03-0400 Body weight 135.[address] Kana Avelar MD Work Phone: [facility] 10-12-2024 09:03-0400 Diastolic blood pressure 98 mm[Hg] Dr. Kana Avelar MD Work Phone: [facility] 10-12-2024 09:03-0400 Heart rate 72 /min Dr. Kana Avelar MD Work Phone: [facility] 10-12-2024 09:03-0400 Respiratory rate 16 /min Dr. Kana Avelar MD Work Phone: [facility] 10-12-2024 09:03-0400 SaO2% (BldA) [Mass fraction] 97 % Dr. Kana Avelar MD Work Phone: [facility] 10-12-2024 09:03-0400 Systolic blood pressure 150 mm[Hg] Dr. Kana Avelar MD Work Phone: [facility] 05-20-2023 12:51-0500 Body height 185.[address] Gagan Chin Work Phone: [facility] 05-20-2023 12:51-0500 Body mass index (BMI) [Ratio] 35.4 kg/m2 Dr. Gagan Chin Work Phone: [facility] 05-20-2023 12:51-0500 Body temperature 98.2 [degF] Dr. Gagan Chin Work Phone: [facility] 05-20-2023 12:51-0500 Body weight 122.[address] Gagan Chin Work Phone: [facility] 05-20-2023 12:51-0500 Diastolic blood pressure 100 mm[Hg] Dr. Gagan Chin Work Phone: [facility] 05-20-2023 12:51-0500 Heart rate 87 /min Dr. Gagan Chin Work Phone: [facility] 05-20-2023 12:51-0500 Respiratory rate 16 /min Dr. Gagan Chin Work Phone: [facility] 05-20-2023 12:51-0500 SaO2% (BldA) [Mass fraction] 98 % Dr. Gagan Chin Work Phone: [facility] 05-20-2023 12:51-0500 Systolic blood pressure 160 mm[Hg] Dr. Gagan Chin Work Phone: [facility] 07-27-2021 06:30-0400 Body temperature 97.2 [degF] Dr. Gagan Chin Work Phone: [facility] Work Phone: 07-27-2021 06:30-0400 Diastolic blood pressure 80 mm[Hg] Dr. Gagan Chin Work Phone: [facility] Work Phone: 07-27-2021 06:30-0400 Heart rate 91 /min Dr. Gagan Chin Work Phone: [facility] Work Phone: 07-27-2021 06:30-0400 Respiratory rate 15 /min Dr. Gagan Chin Work Phone: [facility] Work Phone: 07-27-2021 06:30-0400 SaO2% (BldA) [Mass fraction] 96 % Dr. Gagan Chin Work Phone: [facility] Work Phone: 07-27-2021 06:30-0400 Systolic blood pressure 130 mm[Hg] Dr. Gagan Chin Work Phone: [facility] Work Phone: Encounters Encounter Date Encounter Type Care Provider Facility Start: 03-04-2025 End: 03-04-2025 ambulatory [place]ana A[place] [place]: 02-24-2025 End: 02-24-[address] Robinson Jones MD -[facility] Work Phone: Start: 02-24-2025 End: 02-24-2025 ambulatory Kana Avelar Facility:[facility] Start: 02-17-2025 End: 02-17-2025 Patient encounter procedure Elsa MEIER -[facility] Work Phone: Start: 02-17-2025 End: 02-17-[address] Kana Avelar MD Work Phone: -[facility] Start: 02-12-2025 ambulatory Julia Mcwilliams Facility:[facility] Start: 02-12-2025 Non-patient / Non-visit Dr. Julia zelaya MD -[facility] Start: 02-12-2025 End: 02-12-2025 Emergency department patient visit Dr. Barrie Delgado DO -Emergency Department Work Phone: Start: 02-12-2025 End: 02-12-2025 Patient encounter procedure Russell MEIER -Cardiovascular Services Work Phone: Start: 02-11-2025 End: 02-11-2025 Patient encounter procedure Russell MEIER -Laboratory Work Phone: Start: 02-11-2025 End: 02-11-2025 Patient encounter procedure Russell MEIER -[facility] Work Phone: Start: 02-11-2025 End: 02-12-[address] Kana Avelar MD Work Phone: -[facility] Start: 02-11-2025 End: 02-11-2025 ambulatory Russell MEIER Facility:[facility] Start: 01-26-2025 End: 01-26-2025 Patient encounter procedure Jov[facility] Flowers [facility] Work Phone: Start: 01-26-2025 End: 01-26-[address] Kana Avelar MD Work Phone: -[facility] Start: 12-21-2024 End: 12-21-[address] Kana Avelar MD -[facility] Work Phone: Start: 12-21-2024 End: 12-21-[address] Kana Avelar MD Work Phone: -[facility] Start: 10-12-2024 End: 10-12-[address] Kana Avelar MD Work Phone: [facility] Work Phone: Start: 10-12-2024 End: 10-12-[address] Kana Avlear MD -Laboratory [facility] Start: 10-12-2024 End: 10-12-[address] Kana Avelar MD -[facility] Work Phone: Start: 10-12-2024 End: 10-12-[address] Kana Avelar MD Work Phone: [facility] Work Phone: Start: 10-12-2024 End: 10-12-2024 ambulatory [facility] Facility:[facility] Start: 05-20-2024 End: 05-20-2024 ambulatory [facility] [place] [place] Start: 05-20-2024 End: 05-20-2024 ambulatory [facility] Facility:[facility] Start: 06-26-2023 End: 06-27-2023 ambulatory [facility] Start: 06-26-2023 End: 06-26-2023 Subsequent hospital visit by physician [address] Comment on above: Type 2 diabetes aliya itus without complications (CMS/HCC); Essential (primary) hypertension; Hyperlipidemia, unspecified Start: 06-18-2023 Non-patient / Non-visit Dr. Paul Chin Work Phone: [facility] Start: 06-18-2023 End: 06-18-[address] Gagan Chin Work Phone: [facility] Work Phone: Start: 06-18-2023 End: 06-18-[address] Gagan Chin Work Phone: [facility]-Cardiovascula r Services Work Phone: Start: 05-21-2023 End: 05-21-[address] Gagan Chin Work Phone: [facility] Work Phone: Start: 05-21-2023 End: 05-21-[address] Gagan Chin Work Phone: [facility]-Laboratory, [facility] Start: 05-20-[address] Vandana Chin Work Phone: [facility] Start: 05-20-2023 End: 05-20-2023 Encounter for general adult medical examination without abnormal findings Dr. Gagan Chin Work Phone: [facility] Start: 05-20-2023 End: 05-20-[address] Gagan Chin Work Phone: [facility] Work Phone: Start: 02-19-2023 End: 02-19-2023 ambulatory [facility] Work Phone: Start: 02-19-2023 End: 02-19-2023 [facility] Start: 01-22-2023 End: 01-22-2023 ambulatory [facility] Work Phone: Start: 01-22-2023 End: 01-22-2023 [facility] Start: 06-07-2022 End: 06-07-2022 ambulatory [facility] Work Phone: Start: 06-07-2022 End: 06-07-2022 Patient encounter procedure [facility] Office 3rd Flr Start: 08-30-2021 End: 08-30-[address] Gagan Chin Work Phone: [facility] Office 3rd Flr Start: 07-27-2021 End: 07-27-[address] Gagan Chin Work Phone: [facility] Start: 05-09-2021 End: 05-09-[address] [facility] Start: 12-25-2019 End: 12-25-2019 Patient encounter procedure [facility] Procedures Date Procedure Procedure Detail Performing Clinician Start: 02-12-2025 CT angiography of ch est with contrast Dr. Kana Avelar MD Work Phone: Start: 02-12-2025 Plain chest X-ray Dr. Monica Avelar MD Work Phone: Start: 02-12-[address] Kana Avelar MD Work Phone: Start: 02-11-2025 D-dimer assay, quantitative Dr. Kana Avelar MD Work Phone: Comment on above: D-Dimer ELEVATED (>0 .49): Additional studies and clinicalassessments are indicated to conclude diagnosis of:Deep Vein Thrombosis (DVT) or Pulmonary Embolism (PE)CRITICAL VALUE CALLED TO DR JUAN DAVID MACHADO02/11/25 1826 Niya Rausch.RESULTS READ BACK BY SAME. Start: 10-12-2024 Prostate specific an tigen measurement Dr. Kana Avelar MD Work Phone: Comment on above: This test was perfor med using the [employer] tPSA method. Measured values of a patient sample can vary depending on the testing procedure used. PSA values determined on patient samples by different testing procedures cannot be used interchangeably. If there is a change in PSA assays while monitoring therapy, sequential testing should be performed to confirm baseline values. Start: 06-26-2023 CT CARDIAC SCORING W O IV CONTRAST CB HARDWICK Start: 06-26-2023 Ct heart no contrast quant eval coronry calcium Cb Hardwick RN Start: 02-19-2023 Coronavirus COVID-19 PCR Start: 02-19-2023 Influenza Types A,B Direct FA (EHSAN) Start: 02-19-2023 Respiratory syncytia l virus antigen assay Plan of Treatment Date Care Activity Detail Author Start: 03-04-2025 End: 03-04-2025 Patient encounter procedure Coronary artery disease -[facility] Work Phone: Start: 02-24-2025 End: 02-24-2025 Patient encounter procedure DVT (deep venous thrombosis) -[facility] Work Phone: Start: 02-17-2025 End: 02-17-2025 Patient encounter procedure DVT (deep venous thrombosis) -[facility] Work Phone: Start: 02-12-2025 [facility] Start: 02-12-2025 [facility] Start: 10-12-2024 CBC W Auto Differential panel - Blood [facility] Start: 10-12-2024 Comprehensive metabolic 2000 panel - Serum or Plasma [facility] Start: 10-12-2024 Prostate specific antigen measurement [facility] Start: 08-22-2024 Screening for malignant neoplasm of colon [facility] Start: 01-04-2023 COVID-19 Vaccine ( season) COVID-19 Vaccine ( season) [facility] Start: 2014 Zoster Vaccines (1 of 2) Zoster Vaccines (1 of 2) [facility] Start: 10-20-2004 DTaP/Tdap/Td Vaccines (1 - Tdap) DTaP/Tdap/Td Vaccines (1 - Tdap) [facility] Start: 07-30-1983 Urine screening for protein Diabetes: Urine Protein Screening [facility] Start: 1982 Hepatitis C screening Hepatitis C Screening [facility] Start: 1974 Diabetic foot examination Diabetes: Foot Exam [facility] Start: 1974 Glaucoma screening Diabetes: Retinopathy Screening [facility] Start: 1970 Pneumococcal Vaccine: Pediatrics (0 to 5 Years) and At-Risk Patients (6 to 64 Years) (1 - PCV) Pneumococcal Vaccine: Pediatrics (0 to 5 Years) and At-Risk Patients (6 to 64 Years) (1 - PCV) [facility] Start: 1965 MMR Vaccines (1 of 1 - Standard series) MMR Vaccines (1 of 1 - Standard series) [facility] Start: 1964 Hemoglobin A1c measurement Diabetes: Hemoglobin A1C [facility] Start: 1964 Hepatitis B Vaccines (1 of 3 - 3-dose series) Hepatitis B Vaccines (1 of 3 - 3-dose series) [facility] Start: 1964 HIV screening HIV Screening [facility] Start: 1964 Lipid panel Lipid Panel [facility] Start: 1964 Screening for malignant neoplasm of colon [facility] Start: 1964 Yearly Adult Physical Yearly Adult Physical [facility] Alanine aminotransfe rase [Enzymatic activity/volume] in Serum or Plasma [facility] Albumin [Mass/volume ] in Serum or Plasma [facility] Alkaline phosphatase [Enzymatic activity/volume] in Serum or Plasma [facility] Anion gap in Serum o r Plasma [facility] Bilirubin, total measurement [facility] BUN/Creatinine ratio [facility] Calcium [Mass/volume ] in Serum or Plasma [facility] Carbon dioxide, tota l [Moles/volume] in Central venous blood [facility] Creatinine [Mass/vol ume] in Serum or Plasma [facility] Erythrocyte mean corpuscular volume determination [facility] Glucose [Mass/volume ] in Serum or Plasma [facility] Hematocrit [Volume Fraction] of Blood [facility] Hemoglobin [Mass/vol ume] in Blood [facility] Hemoglobin A1c/Hemoglobin.total in Blood [facility] Leukocytes [#/volume ] in Blood [facility] Mean corpuscular hem oglobin concentration determination [facility] Mean corpuscular hem oglobin determination [facility] Measurement of renal function [facility] Neutrophil count [facility] Neutrophil percent differential count [facility] Patient Education Pulmonary Embo lism ED Deep Vein Thrombosis (DVT) [facility] Work Phone: Patient referral [facility] Work Phone: Platelets [#/volume] in Blood [facility] Potassium measurement [facility] Red blood cell count [facility] Red cell distributio n width determination [facility] Serum chloride measurement [facility] Sodium measurement [facility] Total protein measurement [facility] Urea nitrogen [Mass/ volume] in Serum or Plasma [facility] Immunizations Immunization Date Immunization Notes Care Provider [facility] 02-12-2023 influenza, injectabl e, quadrivalent, preservative free Dr. Kana Avelar MD Work Phone: [facility] 01-22-2023 influenza, injectabl e, quadrivalent, preservative free Dr. Kana Avelar MD Work Phone: [facility] 05-15-2021 Covid (Moderna) Dr. Jose De Jesus Avelar MD Work Phone: [facility] 05-09-2021 influenza, injectabl e, quadrivalent, preservative free Dr. Kana Avelar MD Work Phone: [facility] 10-06-2020 Covid (Moderna) Dr. Jose De Jesus Avelar MD Work Phone: [facility] 09-08-2020 Covid (Moderna) Dr. Jose De Jesus Avelar MD Work Phone: [facility] 12-15-2019 influenza, injectabl e, quadrivalent, preservative free Dr. Kana Avelar MD Work Phone: [facility] 07-20-2019 influenza, injectabl e, quadrivalent, preservative free Dr. Kana Avelar MD Work Phone: [facility] 03-26-2016 influenza, injectabl e, quadrivalent, preservative free Dr. Kana Avelar MD Work Phone: [facility] 10-19-2004 TD(adult) unspecifie d formulation Dr. Kana Avelar MD Work Phone: [facility] Payers Date Payer Category Payer Self-pay [id number] 2023 Unknown [id number] 2023 Unknown [employer] [id number] 2023-Present [address] [place] [address] [id number] 2007 Unknown [id number] 1964 Unknown [id number] 1964 Unknown [id number] Unknown [id number] Unknown [id number] Unknown [id number] Unknown [id number] Unknown [id number] Unknown [id number] Unknown [id number] Unknown [id number] Unknown [id number] Unknown [id number] Unknown [id number] Unknown [id number] Unknown [id number] Unknown [id number] Unknown [id number] Social History Date Type Detail Facility Start: 07-27-2021 End: 05-20-2023 Tobacco smoking status WAIS Unknown if ever smoked [facility] Start: 1965 Sex Assigned At Male [facility] Start: 1965 Sex Assigned At Not on file [facility] Work Phone: Gender identity Not on file [facility] Start: 06-16-2023 End: 06-26-2023 Exposure to SARS-CoV-2 (event) Not sure [facility] Start: 07-08-2023 End: 02-12-2025 Tobacco smoking status NHIS Never smoked tobacco (finding) [facility] Medical Equipment Procedure Code Equipment Code Equipment Origin al Text Equipment Identifier Dates Blood Sugar Diagnostic (Relion Confirm-Micro) strip Start: 05-23-2023 Lancets (Accu-Ch ek Softclix Lancets) misc Start: 05-23-2023 Blood Sugar Diagnostic (Relion Confirm-Micro) strip Start: 05-28-2023 Lancets (Accu-Ch ek Softclix Lancets) misc Start: 05-23-2023 Blood Sugar Diagnostic (Relion Confirm-Micro) strip Start: 05-23-2023 End: 05-28-2023 Blood Sugar Diagnostic (Relion Confirm-Micro) strip Start: 05-28-2023 Lancets (Accu-Ch ek Softclix Lancets) misc Start: 05-23-2023 Blood Sugar Diagnostic (Relion Confirm-Micro) strip Start: 05-23-2023 End: 05-28-2023 Blood Sugar Diagnostic (Relion Confirm-Micro) strip Start: 05-28-2023 Lancets (Accu-Ch ek Softclix Lancets) misc Start: 05-23-2023 Blood Sugar Diagnostic (Relion Confirm-Micro) strip Start: 05-23-2023 End: 05-28-2023 Blood Sugar Diagnostic (Relion Confirm-Micro) strip Start: 05-28-2023 Lancets (Accu-Ch ek Softclix Lancets) misc Start: 05-23-2023 Blood Sugar Diagnostic (Relion Confirm-Micro) strip Start: 05-23-2023 End: 05-28-2023 Blood Sugar Diagnostic (Relion Confirm-Micro) strip Start: 05-28-2023 Lancets (Accu-Ch ek Softclix Lancets) misc Start: 05-23-2023 Blood Sugar Diagnostic (Relion Confirm-Micro) strip Start: 05-23-2023 End: 05-28-2023 Blood Sugar Diagnostic (Relion Confirm-Micro) strip Start: 05-28-2023 Lancets (Accu-Ch ek Softclix Lancets) misc Start: 05-23-2023 Blood Sugar Diagnostic (Relion Confirm-Micro) strip Start: 05-23-2023 End: 05-28-2023 Blood Sugar Diagnostic (Relion Confirm-Micro) strip Start: 05-28-2023 Lancets (Accu-Ch ek Softclix Lancets) misc Start: 05-23-2023 Blood Sugar Diagnostic (Relion Confirm-Micro) strip Start: 05-23-2023 End: 05-28-2023 Blood Sugar Diagnostic (Relion Confirm-Micro) strip Start: 05-28-2023 Lancets (Accu-Ch ek Softclix Lancets) misc Start: 05-23-2023 Blood Sugar Diagnostic (Relion Confirm-Micro) strip Start: 05-23-2023 End: 05-28-2023 Blood Sugar Diagnostic (Relion Confirm-Micro) strip Start: 05-28-2023 Lancets (Accu-Ch ek Softclix Lancets) misc Start: 05-23-2023 Blood Sugar Diagnostic (Relion Confirm-Micro) strip Start: 05-23-2023 End: 05-28-2023 Clinical Notes 10-12-2024 to 02-24-2025 Note Date & Type Note Facility 02-24-2025 Progress note Note Date/Time February 24, 2025 6:39pm [facility] V[facility] Surgery [address] [place] [address] OFFICE VISIT Date of Service: 02/24/25 MR#: [id number] Acct: [id number] Name: ADEN SAMANIEGO Rep #: [id number] : 1965 Provider: Dr. Robinson Jones MD Age/Sex: 59/M [place] [facility] [place]: Signed Intake Vital Signs 02/12/25 08:58 02/24/25 15:30 Height 6 ft 1 in Weight: 310 lb BP 177/88 H Blood Pressure Location Lt brachial Position Sitting Respiration 16 Pulse 82 Pulse Source Monitor Temp 98 F Temp Source Temporal Pulse Oximetry (%) 96 Oxygen Delivery Method room air Intake Visit Reasons: DVT F/U Is patient in pain?: No Allergies No Known Allergies Allergy (Verified 02/24/25 15:32) Medications ?Medication ?Instructions ?Recorded ?Confirmed ?Type lancets (Accu-Chek Softclix #100 ea 05/23/23 02/24/25 Rx Lancets) blood sugar diagnostic (Relion #100 ea 05/28/23 Rx Confirm-Micro strips) losartan 100 mg tablet 100 mg PO DAILY 90 days #90 tabs 07/14/24 02/24/25 Rx atorvastatin 40 mg tablet mg PO QDAY 10/12/24 02/24/25 History glimepiride 4 mg tablet 4 mg PO BID 3 months #180 ta bs 10/12/24 02/24/25 Rx metformin 1,000 mg tablet 1,000 mg PO BID 3 months #18 0 tabs 10/12/24 02/24/25 Rx pantoprazole 40 mg tablet,delayed 40 mg PO DAILY #90 t abs 11/30/24 02/24/25 Rx release (Protonix) hydrochlorothiazide 50 mg tablet 50 mg PO DAILY #90 ta bs 12/31/24 02/24/25 Rx apixaban 5 mg tablet (Eliquis) 5 mg PO BID #14 tabs 02/24/25 Rx Have you fallen in the past year?: Yes PFSH Medical History Anxiety and depression Hernia High cholesterol Back pain Neck pain Limb weakness Diabetes SOB (shortness of breath) Hypertension Surgical History H/O hernia repair H/O left wrist surgery Social History Smoking Status: Never smoker alcohol intake: current alcohol intake frequency: holidays/special occasions only substance use type: does not use what type of physical activity do you participate in: bicycling frequency: 3-4 times per week do you feel safe at home: Yes HPI HPI HPI: ADEN SAMANIEGO, is a 59 M who presents to the office today for follow-up discussion of extensive left lower extremity deep vein thrombosis. His initial symptoms began in early February and he subsequently was found to have thrombus from the external iliac vein down. He also was found to have small pulmonary emboli. Given the extent of his thrombus the reach threshold to consider percutaneous mechanical thrombectomy. He has been tolerating Eliquis since the initial diagnosis without any missed doses and with significant improvement in his left lower extremity heaviness, tightness, pain. He has had no worsening chest pain or shortness of breath since his original presentation. ROS General General: Yes weight change, fatigue and weakness; No appetite, colon cancer or breast cancer HEENT HEENT: No difficulty swallowing, eye injury, eye surgery, swollen glands or hoarseness Endo Endocrine: Yes diabetes mellitus; No thyroid disease, thyroid cancer, Hair loss, heat intolerance or cold intolerance Skin Skin: No rash or changing moles Musc Musculoskeletal: Yes back problems; No arthritis, rheumatoid arthritis, gout or joint pain Cardio Cardiovascular: Yes high blood pressure; No murmur, pacemaker, heart disease, atrial fibrillation, heart attack, heart stent, palpitations, shortness of breath with exertion or chest pain Psych Psychiatric: No anxiety or hearing voices Resp Respiratory: Yes shortness of breath, No sleep apnea, Yes cough, No COPD, No asthma, No emphysema and No wheezing Gastro Gastrointestinal: No abdominal pain, Yes nausea or vomiting, Yes diarrhea, Yes constipation, No blood in stool, Yes acid reflux, No hemorrhoids, No ulcers, No gallbladder problem and No black,tarry stools Venkatesh Hematologic: Yes blood thinners, No blood disorders, No bleeding, No anemia and Yes blood clots Neuro Neurologic: No system reviewed and no additional complaints, except as documented, No as per HPI, No abnormal gait, Yes abnormal hearing, No abnormal movements, No abnormal speech, No behavioral changes, No burning sensations, Yesconfusion, No convulsions, Yes disequilibrium, Yes dizziness, No localized weakness, No frequent falls, Yes headache(s), No lack of coordination, No loss of vision, No memory loss, Yes numbness, Yes other visual disturbances, No radicular pain, Yes restless legs, No sensory deficit, No syncope, Yes tingling,No tremor(s), Yes weakness and No other Exam Const General: cooperative, healthy appearing, comfortable, no acute distress and welldeveloped Nutritional Appearance: well nourished Orientation: alert, awake and oriented x3 HENMT Head: normocephalic and atraumatic Ears: hearing grossly normal bilaterally Nose: external nose normal Eyes General: appearance normal, both eyes and all related structures EOM: EOM intact bilaterally Neck Neck: normal visual inspection and trachea midline Resp Effort & Inspection: normal respiratory effort, able to speak in complete sentences, symmetric chest movement, no audible wheezes, not labored, no stridorand no use of accessory muscles Cardio Rate: regular rate Rhythm: regular rhythm Skin General: no rashes or lesions noted and no erythema Wounds: no wounds Neuro Cranial Nerves: CN's II-XI intact bilaterally and EOM intact bilaterally Speech: speech normal Gait: normal gait Motor: strength 5/5 throughout Sensory Exam: no sensory deficits noted Extremities Lower Extremity Edema: +1: Left Psych Appearance: grossly normal and well kempt Mental Status: mental status grossly normal Mood: congruent mood Speech and Movement: speech and movement normal Thought Content: normal Judgment: judgment good Coding Level of Care Code Off vis,est,level 3 Diagnoses Acute deep vein thrombosis (DVT) of iliac vein of left lower extremity I82.422 DVT location: lower extremity Affected thrombotic vein of extremity: iliac Chronicity: acute Laterality: left Assessment and Plan Assessment and Plan (1) DVT (deep venous thrombosis): Status: Acute Qualifiers: DVT location: lower extremity Affected thrombotic vein of extremity: iliac Chronicity: acute Laterality: left Qualified Code(s): I82.422 - Acute embolism and thrombosis of left iliac vein Plan: Continued improvement in symptoms with anticoagulation alone. Patient would prefer to avoid invasive procedures unless necessary, and he is satisfied with the progress his leg has made to this point. Discussed options for mechanical thrombectomy as well as indications and benefits as well as risks. At this point he would prefer to continued medical therapy with no intervention. He will obtain measured compression stockings which should help decrease postthrombotic syndrome severity in the long run. He will return in 2 months to assess his situation as well as to help ensure that he is able to navigate efforts to obtain anticoagulation and to obtain repeat imaging to assess clot resolution. Clinical Quality Measures Falls Risk Screening/Assistive Devices Have you fallen in the past year?: Yes 02/24/25 7453 <Electronically signed by Robinson Fernandez> Date _ Robinson Jones MD Cosigner Signature: Date (if applicable) CC: ~ [facility] Work Phone: [phone]) 217-126410-22-2025 [facility] V[facility] Surgery [address] [place] [address] OFFICE VISIT Date of Service: 02/24/25 MR#: [id number] Acct: [id number] Name: ADEN SAMANIEGO Rep #: [id number] : 1965 Provider: Dr. Robinson Jones MD Age/Sex: 59/M [place] [facility] [place] Status: Signed Intake Vital Signs 02/12/25 08:58 02/24/25 15:30 Height 6 ft 1 in Weight: 310 lb BP 177/88 H Blood Pressure Location Lt brachial Position Sitting Respiration 16 Pulse 82 Pulse Source Monitor Temp 98 F Temp Source Temporal Pulse Oximetry (%) 96 Oxygen Delivery Method room air Intake Visit Reasons: DVT F/U Is patient in pain?: No Allergies No Known Allergies Allergy (Verified 02/24/25 15:32) Medications ?Medication ?Instructions ?Recorded ?Confirmed ?Type lancets (Accu-Chek Softclix #100 ea 05/23/23 02/24/25 Rx Lancets) blood sugar diagnostic (Relion #100 ea 05/28/23 Rx Confirm-Micro strips) losartan 100 mg tablet 100 mg PO DAILY 90 days #90 tabs 07/14/24 02/24/25 Rx atorvastatin 40 mg tablet mg PO QDAY 10/12/24 02/24/25 History glimepiride 4 mg tablet 4 mg PO BID 3 months #180 ta bs 10/12/24 02/24/25 Rx metformin 1,000 mg tablet 1,000 mg PO BID 3 months #18 0 tabs 10/12/24 02/24/25 Rx pantoprazole 40 mg tablet,delayed 40 mg PO DAILY #90 t abs 11/30/24 02/24/25 Rx release (Protonix) hydrochlorothiazide 50 mg tablet 50 mg PO DAILY #90 ta bs 12/31/24 02/24/25 Rx apixaban 5 mg tablet (Eliquis) 5 mg PO BID #14 tabs 02/24/25 Rx Have you fallen in the past year?: Yes PFSH Medical History Anxiety and depression Hernia High cholesterol Back pain Neck pain Limb weakness Diabetes SOB (shortness of breath) Hypertension Surgical History H/O hernia repair H/O left wrist surgery Social History Smoking Status: Never smoker alcohol intake: current alcohol intake frequency: holidays/special occasions only substance use type: does not use what type of physical activity do you participate in: bicycling frequency: 3-4 times per week do you feel safe at home: Yes HPI HPI HPI: ADEN SAMANIEGO, is a 59 M who presents to the office today for follow-up discussion of extensive left lower extremity deep vein thrombosis. His initial symptoms began in early February and he subsequently was found to have thrombus from the external iliac vein down. He also was found to have small pulmonary emboli. Given the extent of his thrombus the reach threshold to consider percutaneous mechanical thrombectomy. He has been tolerating Eliquis since the initial diagnosis without any missed doses and with significant improvement in his left lower extremity heaviness, tightness, pain. He has had no worsening chest pain or shortness of breath since his original presentation. ROS General General: Yes weight change, fatigue and weakness; No appetite, colon cancer or breast cancer HEENT HEENT: No difficulty swallowing, eye injury, eye surgery, swollen glands or hoarseness Endo Endocrine: Yes diabetes mellitus; No thyroid disease, thyroid cancer, Hair loss, heat intolerance or cold intolerance Skin Skin: No rash or changing moles Musc Musculoskeletal: Yes back problems; No arthritis, rheumatoid arthritis, gout or joint pain Cardio Cardiovascular: Yes high blood pressure; No murmur, pacemaker, heart disease, atrial fibrillation, heart attack, heart stent, palpitations, shortness of breath with exertion or chest pain Psych Psychiatric: No anxiety or hearing voices Resp Respiratory: Yes shortness of breath, No sleep apnea, Yes cough, No COPD, No asthma, No emphysema and No wheezing Gastro Gastrointestinal: No abdominal pain, Yes nausea or vomiting, Yes diarrhea, Yes constipation, No blood in stool, Yes acid reflux, No hemorrhoids, No ulcers, No gallbladder problem and No black,tarry stools Venkatesh Hematologic: Yes blood thinners, No blood disorders, No bleeding, No anemia and Yes blood clots Neuro Neurologic: No system reviewed and no additional complaints, except as documented, No as per HPI, No abnormal gait, Yes abnormal hearing, No abnormal movements, No abnormal speech, No behavioral changes, No burning sensations, Yesconfusion, No convulsions, Yes disequilibrium, Yes dizziness, No localized weakness, No frequent falls, Yes headache(s), No lack of coordination, No loss of vision, No memory loss, Yes numbness, Yes other visual disturbances, No radicular pain, Yes restless legs, No sensory deficit, No syncope, Yes tingling,No tremor(s), Yes weakness and No other Exam Const General: cooperative, healthy appearing, comfortable, no acute distress and welldeveloped Nutritional Appearance: well nourished Orientation: alert, awake and oriented x3 HENMT Head: normocephalic and atraumatic Ears: hearing grossly normal bilaterally Nose: external nose normal Eyes General: appearance normal, both eyes and all related structures EOM: EOM intact bilaterally Neck Neck: normal visual inspection and trachea midline Resp Effort & Inspection: normal respiratory effort, able to speak in complete sentences, symmetric chest movement, no audible wheezes, not labored, no stridorand no use of accessory muscles Cardio Rate: regular rate Rhythm: regular rhythm Skin General: no rashes or lesions noted and no erythema Wounds: no wounds Neuro Cranial Nerves: CN's II-XI intact bilaterally and EOM intact bilaterally Speech: speech normal Gait: normal gait Motor: strength 5/5 throughout Sensory Exam: no sensory deficits noted Extremities Lower Extremity Edema: +1: Left Psych Appearance: grossly normal and well kempt Mental Status: mental status grossly normal Mood: congruent mood Speech and Movement: speech and movement normal Thought Content: normal Judgment: judgment good Coding Level of Care Code Off vis,est,level 3 Diagnoses Acute deep vein thrombosis (DVT) of iliac vein of left lower extremity I82.422 DVT location: lower extremity Affected thrombotic vein of extremity: iliac Chronicity: acute Laterality: left Assessment and Plan Assessment and Plan (1) DVT (deep venous thrombosis): Status: Acute Qualifiers: DVT location: lower extremity Affected thrombotic vein of extremity: iliac Chronicity: acute Laterality: left Qualified Code(s): I82.422 - Acute embolism and thrombosis of left iliac vein Plan: Continued improvement in symptoms with anticoagulation alone. Patient would prefer to avoid invasive procedures unless necessary, and he is satisfied with the progress his leg has made to this point. Discussed options for mechanical thrombectomy as well as indications and benefits as well as risks. At this point he would prefer to continued medical therapy with no intervention. He will obtain measured compression stockings which should help decrease postthrombotic syndrome severity in the long run. He will return in 2 months to assess his situation as well as to help ensure that he is able to navigate efforts to obtain anticoagulation and to obtain repeat imaging to assess clot resolution. Clinical Quality Measures Falls Risk Screening/Assistive Devices Have you fallen in the past year?: Yes 02/24/25 1739 D> Date _ Robinson Horowitz Signature: Date (if applicable) CC: ~ [facility] [id number] [facility] Surgery [address] [place] [address]. [address] [place] [address] OFFICE VISIT Date of Service: 02/17/25 MR#: [id number] Acct: [id number] Name: ADEN SAMANIEGO Rep #: [id number] : 1965 Provider: HARDEEP Hoang Age/Sex: 59/M [place] [facility] [place] Status: Signed Intake Vital Signs 02/12/25 08:58 02/17/25 08:15 Height 6 ft 1 in Weight: 305 lb BP 174/92 H Blood Pressure Location Lt brachial Position Sitting Respiration 16 Pulse 73 Pulse Source Monitor Temp 97.8 F Temp Source Temporal Pulse Oximetry (%) 96 Oxygen Delivery Method room air Intake Visit Reasons: Deep vein thrombosis Chief Complaint: establish care Is patient in pain?: No Allergies No Known Allergies Allergy (Verified 02/17/25 08:16) Medications ?Medication ?Instructions ?Recorded ?Confirmed ?Type lancets (Accu-Chek Softclix #100 ea 05/23/23 02/17/25 Rx Lancets) blood sugar diagnostic (Relion #100 ea 05/28/23 Rx Confirm-Micro strips) losartan 100 mg tablet 100 mg PO DAILY 90 days #90 tabs 07/14/24 02/17/25 Rx atorvastatin 40 mg tablet mg PO QDAY 10/12/24 02/17/25 History glimepiride 4 mg tablet 4 mg PO BID 3 months #180 ta bs 10/12/24 02/17/25 Rx metformin 1,000 mg tablet 1,000 mg PO BID 3 months #18 0 tabs 10/12/24 02/17/25 Rx pantoprazole 40 mg tablet,delayed 40 mg PO DAILY #90 t abs 11/30/24 02/17/25 Rx release (Protonix) hydrochlorothiazide 50 mg tablet 50 mg PO DAILY #90 ta bs 12/31/24 02/17/25 Rx apixaban 5 mg tablet (Eliquis) 5 mg PO BID #14 tabs 02/17/25 Rx Have you fallen in the past year?: Yes PFSH Medical History Anxiety and depression Hernia High cholesterol Back pain Neck pain Limb weakness Diabetes SOB (shortness of breath) Hypertension Surgical History H/O hernia repair H/O left wrist surgery Social History Smoking Status: Never smoker alcohol intake: current alcohol intake frequency: holidays/special occasions only substance use type: does not use what type of physical activity do you participate in: bicycling frequency: 3-4 times per week do you feel safe at home: Yes HPI HPI HPI: ADEN SAMANIEGO, is a 59 M who presents to the office today for evaluation and management of extensive LLE DVT and PE. He was seen by his PCP 02/11 for LLE swelling and he was started on Eliquis, stat duplex was completed on 02/12 whichdemonstrated acute L EIV, PFV, CFV, FV, POPV DVT and at that time he was sent [facility] ER as he was also having some SOB. In the the ER 02/12, he had a Chest CTA demonstrating acute PE in the right interlobar pulmonary artery, echocardiogram without evidence of right heart strain; he was hemodynamically stable and saturating well on room air so was discharged home on Eliquis. In the office today, he reports he is tolerating the Eliquis well, has not missed any doses, and has seen some improvement in his LLE edema. He does still have some SOB and CP which he is associatingwith the PE, not worse just not significantly better yet. He reports the LLE edema started about 3 weeks ago pretty suddenly. He has not had any significant pain, redness, or warmth. He could not identify any preceding triggers such as injury, illness, travel, or otherwise significantly decreased activity. He has not had any prior VTE; he has no known personal or family history of clotting disorders. He reports he is up to date on all age- appropriate cancer screenings and denies other symptoms such as persistent/new cough, difficulty swallowing, change in bowel habits, hematuria, melena, night sweats, excess fatigue. ROS General General: Yes weight change, fatigue and weakness; No appetite, colon cancer or breast cancer HEENT HEENT: No difficulty swallowing, eye injury, eye surgery, swollen glands or hoarseness Endo Endocrine: Yes diabetes mellitus; No thyroid disease, thyroid cancer, Hair loss, heat intolerance or cold intolerance Skin Skin: No rash or changing moles Musc Musculoskeletal: Yes back problems; No arthritis, rheumatoid arthritis, gout or joint pain Cardio Cardiovascular: Yes high blood pressure; No murmur, pacemaker, heart disease, atrial fibrillation, heart attack, heart stent, palpitations, shortness of breath with exertion or chest pain Psych Psychiatric: No anxiety or hearing voices Resp Respiratory: Yes shortness of breath, No sleep apnea, Yes cough, No COPD, No asthma, No emphysema and No wheezing Gastro Gastrointestinal: No abdominal pain, Yes nausea or vomiting, Yes diarrhea, Yes constipation, No blood in stool, Yes acid reflux, No hemorrhoids, No ulcers, No gallbladder problem and No black,tarry stools Venkatesh Hematologic: Yes blood thinners, No blood disorders, No bleeding, No anemia and Yes blood clots Neuro Neurologic: No system reviewed and no additional complaints, except as documented, No as per HPI, No abnormal gait, Yes abnormal hearing, No abnormal movements, No abnormal speech, No behavioral changes, No burning sensations, Yesconfusion, No convulsions, Yes disequilibrium, Yes dizziness, No localized weakness, No frequent falls, Yes headache(s), No lack of coordination, No loss of vision, No memory loss, Yes numbness, Yes other visual disturbances, No radicular pain, Yes restless legs, No sensory deficit, No syncope, Yes tingling,No tremor(s), Yes weakness and No other Exam Const General: cooperative, comfortable and no acute distress Orientation: alert, awake and oriented x3 HENMT Head: normocephalic and atraumatic Ears: hearing grossly normal bilaterally and external ears normal Nose: external nose normal Eyes General: appearance normal, both eyes and all related structures Neck Neck: normal visual inspection and trachea midline Resp Effort & Inspection: normal respiratory effort, able to speak in complete sentences, no grunting, not labored, no respiratory distress and no retractions Cardio Rate: regular rate Rhythm: regular rhythm Skin General: no rashes or lesions noted Trauma: no lacerations or abrasions Wounds: no wounds Neuro General: moves all extremities and no focal motor deficits Speech: speech normal Extremities Lower Extremity Edema: +2: Left Psych Appearance: grossly normal Affect: normal affect Speech and Movement: speech and movement normal Attitude: cooperative Coding Level of Care Code Off vis,new,level 4 Extra Time Spent Extra Time Spent Extra Time Spent: G2211 Diagnoses DVT (deep venous thrombosis) I82.409 Additional Codes Extra Time Spent - Extra Time Spent: G2211 (G2211) Time Spent (min) 57 Assessment and Plan Assessment and Plan (1) DVT (deep venous thrombosis): Status: Acute Plan: He has initial unprovoked extensive acute LLE DVT and PE. We discussed his recent ultrasound and CTA findings, the distribution and extent of his DVT, and options for management. Anticoagulation is the primary treatment; in his case given the extent of thrombus burden and unprovoked nature would consider a minimum of 6 months of therapeutic anticoagulation and then would consider further prophylactic anticoagulation thereafter. In addition to anticoagulation, the extent and proximal nature of his LLE DVT makes him a reasonable candidate for thrombectomy; we discussed thrombectomy procedure details including risks, benefits, need for perioperative hospitalization for heparin bridging, and rec overy. After discussion, plan to have him return to the office to reassess in1 week. If his symptoms continue to make significant improvement then reasonableto continue with anticoagulation alone. Ifhe fails to see continued improvement, then may pursue LLE thrombectomy. With respect to his pulmonary emboli, these are smaller and more distal so are not suitable targetsfor embolectomy. I also strongly recommend utilizing compression to help manage the edema. Applied CRISTINA wrap in the office today and I recommend he apply this daily at home, putting it on in the morning and removing before bed. I also recommend legelevation at all times of rest. In his Chest CTA, significant coronary artery disease was noted incidentally. Referral placed to cardiology for further evaluation/recommendations in this regard. Return to the office in 1 week, call sooner with concerns. We also discussed redflag signs/symptomswhich should lead him to present to the ER. Orders: Referrals Cardiology I25.10 - Atherosclerotic heart disease of [place] coronary artery without angina pectoris Clinical Quality Measures Falls Risk Screening/Assistive Devices Have you fallen in the past year?: Yes 02/17/25 1617 PA> Date _ Elsa MEIER 02/17/25 1813 Cosigner Signature: Date (if applicable) Robinson Jones MD CC: Dr. Kana Avelar MD; HARDEEP Leon ~ [facility]10-10-2025 Discharge summary [facility] Medical Records Department [address] [place] [address] Emergency Department Summary 02/12/25 MR#: [id number] Acct: [id number] Name: ADEN SAMANIEGO Rep #:[id number] : 1965 59 From: Barrie Delgado DO PCP: Dr. Kana Avelar MD Status:D EP ER Location: ED HPI History of Present Illness Chief Complaint: Shortness of Breath Narrative Narrative: Patient is a 59-year-old male who is presenting today to have CTA to rule out PE. Patient has notedextensive DVT to left lower extremity. Patient was started on Eliquis last night. Patient took Eliquis tablet last night and today. Patient had a outpatient DVT study in the vascular lab. Patient wasrecommended to come to the ER by internal medicine physician Storm TORRES who is one of the partners of the patient's PCP. Patient has no chest pain or shortness of breath. Patient has no risk factors for DVT at this time. Patienthad traumatic injury over 7 years ago, nothing recent. No recent traveling. 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 Patient has no chest pain, shortness of breath, fever, chills, no other acute complaints. Patient has had swelling and pain to the left leg. Patient tells me that his DVT is from his left knee up into his left groin. Patient was sent to the ER to rule out PE by Dr. Collins REVIEW OF SYSTEMS: Unless otherwise stated in this report the patient's positiveand negative responses for review of systems for constitutional, eyes, ENT, cardiovascular, respiratory, gastrointestinal, neurological, , musculoskeletal, and integument systems and related systems to the presenting p [place] are either stated in the history of present illness or were not pertinent or were negative for the symptoms and/or complaints related to the presenting medical problem. Vital signs reviewed and patient is not hypoxic. Patient was initially hypertensive, vital signs will be followed. General: The patient appears well and in no apparent distress. Patient is resting comfortably on cart. Not toxic, lethargic, or listless. Skin: Warm, dry, no pallor noted. There is no rash noted. Head: Normocephalic, atraumatic Eye: Normal conjunctiva, no drainage, EOMI. PERRL. Ears, Nose, Mouth, and Throat: oral mucosa is moist. Nares patent. Mouth withoutvesicles. Cardiovascular: Regular Rate and Rhythm, no murmurs, gallops, or rubs Respiratory: Patient is in no distress, no accessory muscle use, lungs are clearto auscultation, nowheezing, rales or rhonchi Back: non-tender, no CVA tenderness bilaterally to percussion. NO CTLS midline or paraspinal tenderness to palpation. GI: Soft, obese, no tenderness to palpation, no masses appreciated. No rebound, guarding, or rigidity noted. Musculoskeletal: The patient has full range of motion of all extremities and joints with no difficulty except the left lower extremity. Patient does have pain in the posterior aspect of left posterior thigh, popliteal fossa, and calf. Patient does have 2+ pitting edema to left lower extremity compared to the right. Patient's left leg is half a size larger compared to the right. Patient has no motor, no sensory deficits. Neurological: A&O x4, normal speech, no focal neurological deficits. Psychiatric: Cooperative [facility] Medical History Anxiety and depression Hernia High cholesterol Back pain Neck pain Limb weakness Diabetes SOB (shortness of breath) Hypertension Home Medications ?Medication ?Instructions ?Recorded ?Last Taken ?Type lancets (Accu-Chek Softclix #100 ea 05/23/23 Unknown R x Lancets) blood sugar diagnostic (Relion #100 ea 05/28/23 Unknow n Rx Confirm-Micro strips) losartan 100 mg tablet 100 mg PO DAILY 90 days #90 tabs 07/14/24 Unknown Rx atorvastatin 40 mg tablet mg PO QDAY 10/12/24 Unknown History glimepiride 4 mg tablet 4 mg PO BID 3 months #180 ta bs 10/12/24 Unknown Rx metformin 1,000 mg tablet 1,000 mg PO BID 3 months #18 0 tabs 10/12/24 Unknown Rx pantoprazole 40 mg tablet,delayed 40 mg PO DAILY #90 t abs 11/30/24 Unknown Rx release (Protonix) hydrochlorothiazide 50 mg tablet 50 mg PO DAILY #90 ta bs 12/31/24 Unknown Rx albuterol 90 mcg-budesonide 80 2 inh inhalation ONCE # 10.7 grams 02/11/25 Unknown Rx mcg/actuation HFA aerosol inhaler (Airsupra) apixaban 5 mg tablet (Eliquis) 5 mg PO BID #14 tabs Unknown Rx apixaban 5 mg (74 tabs) tablets in See Rx Instructions PO PER PKG DIR 02/12/25 Unknown Rx a dose pack (Eliquis DVT-PE Treat #74 tabs 30D Start) Allergy/AdvReac Type Severity Reaction Status Date / Time No Known Allergies Allergy Verified 02/11/25 14:54 Surgical History H/O hernia repair H/O left wrist surgery Social History Smoking Status: Never smoker alcohol intake: current alcohol intake frequency: holidays/special occasions only substance use type: does not use what type of physical activity do you participate in: bicycling frequency: 3-4 times per week do you feel safe at home: Yes ROS ROS ED ROS Narrative REVIEW OF SYSTEMS: Unless otherwise stated in this report the patient's positiveand negative responses for review of systems for constitutional, eyes, ENT, cardiovascular, respiratory, gastrointestinal, neurological, , musculoskeletal, and integument systems and related systems to the presenting p roblem are either stated in the history of present illness or were not pertinent or were negative for the symptoms and/or complaints related to the presenting medical problem. EXAM Physical Exam Narrative Exam Narrative: Vital signs reviewed and patient is not hypoxic. General: The patient appears well and in no apparent distress. Patient is resting comfortably on cart. Not toxic, lethargic, or listless. Skin: Warm, dry, no pallor noted. There is no rash noted. Head: Normocephalic, atraumatic Eye: Normal conjunctiva, no drainage, EOMI. PERRL. Ears, Nose, Mouth, and Throat: oral mucosa is moist. Nares patent. Mouth withoutvesicles. Cardiovascular: Regular Rate and Rhythm, no murmurs, gallops, or rubs Respiratory: Patient is in no distress, no accessory muscle use, lungs are clearto auscultation, nowheezing, rales or rhonchi Back: non-tender, no CVA tenderness bilaterally to percussion. NO CTLS midline or paraspinal tenderness to palpation. GI: Soft, no tenderness to palpation, no masses appreciated. No rebound, guarding, or rigidity noted. Musculoskeletal: The patient has full range of motion of all extremities and joints with no difficulty. Patient has no motor, no sensory deficits. Neurological: A&O x4, normal speech, no focal neurological deficits. Psychiatric: Cooperative Const Vital Signs: 02/12/25 08:58 02/12/25 09:27 02/12/25 09:27 Temperature 98.2 F Temperature Source Oral Pulse Rate 87 Respiratory Rate 18 Respiratory Effort Short of Breath Respiratory Depth Normal Respiratory Pattern Normal Blood Pressure 194/103 H Blood Pressure Mean 133 Pulse Ox 99 Oxygen Delivery Method Room Air Room Air Room Air 02/12/25 10:41 02/12/25 11:03 02/12/25 15:50 Temperature 98.7 F Temperature Source Pulse Rate 79 68 74 Respiratory Rate 20 H 16 19 H Respiratory Effort Respiratory Depth Respiratory Pattern Blood Pressure 160/98 H 167/96 H 177/99 H Blood Pressure Mean 118 119 125 Pulse Ox 99 98 96 Oxygen Delivery Method Room Air Room Air MDM MDM MDM Narrative Medical decision making narrative: Patient seen and examined: Patient may have IV, cardiac workup, CTA of the chestto rule out PE Differential diagnosis includes but is not limited to: PE, hypertension, ACS, electrolyte abnormality, left leg DVT Relevant laboratory interpretation: Initial troponin was 24, repeat troponin was Radiological studies: Ultrasound report showed extensive DVT from the left knee up into the left groin, I do not have a copy of the report yet, CTA of the chest showed acute pulmonary embolism on the right, equivocal right heart strain, severecoronary artery disease atherosclerosis disease. PE is present in the interlobar pulmonary artery extending into the segmental pulmonary arteries in the right lobe Reevaluation: Patient was updated on the CT report, slightly elevated troponin at 24 and is aware this will be repeated. Patient blood pressure has improved. Patient tellme that he has a follow-up appointment scheduled already on Saturday with vascular surgery to discuss his clot. Patient has already started Eliquis yesterday and today, Dr. Vaca has called in a prescription for Eliquis starter pack into the pharmacy already Preliminary report of patient's ultrasound on his left leg shows extensive DVT from the left popliteal vein, left femoral vein, left common femoral vein, left external iliac vein and left profunda vein 1210 I have spoken to internal medicine physician who sent the patient in, Dr. Storm Vaca. Patient'stroponin has improved from 24-23. Patient CT shows equivocal right heart strain. When I spoke to the radiologist on the phone, Qasim, he stated that there does not really show any signs of right heart strain, there is some straightening or bowing of the if ventricular septum, but otherwise no signs of right heart strain and stated it was equivocal. 1220 I have spoken to the assistant prosecuting attorney, Dr. Mcwilliams. We also discussed patient'smultiple comorbidities of obesity, diabetes, cholesterol, hypertension, and alsopatient's age, male. Patient needs a follow-up with cardiology as well, last time patient had a stress echocardiogram was over 10 to 20 yearsago. Patient was told that he had a NC when he was younger, but stated it was secondary to drinking2 L of Mountain Dew a day. We do not have vascular surgery on-call today, but secondary to this equivocal finding, I am ordering a stat echo in theER to make sure there is no acute obvious signs of right heart strain which she does not appear to be on CT finding and with the radiologist told me on the phone. 2D ECHO showed no significant right ventricular heart strain. A copy of the report was given to patient Dr Mcwilliams read the echocardiogram. I discussed patient 10 minutes of discharge on the follow-up plan. Patient will follow-up with his PCP, patient knows that he needs to follow-up with cardiology along with following up with surgeon/GI surgeon for the swelling to his abdomen to rule out diastasis versus ventral wall hernia. Patient is on Eliquis, patient took Eliquis last night and today. has sent a prescription for Eliquis to the store. Patient and his mother were extremely thankful and happy from the time spent at bedside with myself and nursing staff. Patient was educated at length on patient's left leg DVT, pulmonary-ism, and right heart strain versus not. Patient secondtroponin improved. No question of discharge Critical care time 45 minutes exclusive from separate billable procedures that were performed. The following was considered in the determination of critical care but not limited to the level of medical decision making, intensive cardiac and/or respiratory monitoring, frequent vital sign monitoring,evaluation of laboratory studies, evaluation of radiographic studies, oxygen monitoring, and constant monitoring and speaking to family at bedside Social barriers to healthcare: There are no food insecurities, there is no issuewith transportation, there are no insurance barriers Lab Data Attestation: I reviewed the patient's lab results. Labs: Laboratory Results - last 24 hr 02/12/25 02/12/25 09:25 11:05 WBC 7.8 RBC 4.16 L Hgb 13.0 Hct 37.8 L MCV 90.9 MCH 31.3 MCHC 34.4 RDW Std Deviation 39.8 RDW Coeff of Leonel 11.9 Plt Count 236 MPV 11.7 Immature Gran % (Auto) 0.500 Neut % (Auto) 69.7 Lymph % (Auto) 19.5 Wilkes % (Auto) 6.7 Eos % (Auto) 3.0 Baso % (Auto) 0.6 Absolute Neuts (auto) 5.4 Absolute Lymphs (auto) 1.52 Nucleated RBC % 0 PT 15.4 H INR 1.2 APTT 32.2 Sodium 140 Potassium 4.8 Chloride 106 Carbon Dioxide 24.1 Anion Gap 10 BUN 20 H Creatinine 1.11 Estim Creat Clear Calc 103.20 Est GFR (MDRD) Non-Af 76 BUN/Creatinine Ratio 17.7 Glucose 188 H Calcium 9.0 Magnesium 2.0 Troponin T High Sens 24 H Troponin T Hi Sens 2 Hr 23 H NT pro BNP II 119 Radiography Chest X-Ray - ED: 1 View and Read by ED Physician (Chest x-ray shows no acute cardiopulmonary disease, no infiltrate, no effusion) Diagnostic Testing: Clinical Impression(s) from Imaging Studies Chest X-Ray 02/12/25 09:35 IMPRESSION: No acute abnormality. Reading Location: [facility] Chest CTA 02/12/25 09:47 IMPRESSION: 1. Acute pulmonary embolus on the right. Equivocal RV strain. 2. Severe coronary artery atherosclerotic disease. Red Alert: Pulmonary embolus The critical findings in the findings and impression above were relayed directlyby me by telephone to Barrie Delgado on 02/12/2025 at 11:20 am with readback verification. Reading Location: [facility] Echocardiogram 02/12/25 12:19 Interpretation Summary Mild concentric left ventricular hypertrophy. The left ventricular ejection fraction is 65 %. Stage 1 diastolic dysfunction. There is Mild focal posterior mitral annular calcification. Mildly dilated aortic root. Ordering Physician: Barrie Delgado Referring Physician: Kana Avelar Performed By: Siobhan Garcia RCS Initial EKG: Attestation: I personally reviewed and interpreted this EKG as follows: (You may alternate Tylenol and either Motrin, Advil, ibuprofen every 4 hours as needed for pain/fever. Take anti-inflammatorieswith food or drink to help buffer the medication. MAX dose of Tylenol is 3000 mg a day. MAX dose ofMotrin, Advil, ibuprofen is 2400 mg a day. Patient seen and examined: D) Discharge Plan Triage Chief Complaint: Shortness of Breath Other Complaint: Lower Extremity Injury ED Provider: Barrie Delgado Dx/Rx/DC Orders Clinical Impression: Pulmonary embolism of right lung, Acute deep vein thrombosis (DVT) of left lower extremity Instructions: Pulmonary Embolism, ED Deep Vein Thrombosis (DVT) Prescriptions: No Action atorvastatin 40 mg tablet PO QDAY Patient Comments: TAKE 1 TABLET BY MOUTH EVERY DAY glimepiride 4 mg tablet 4 mg PO BID 90 Days Qty: 180 1RF metformin 1,000 mg tablet 1,000 mg PO BID 90 Days Qty: 180 1RF Airsupra 90-80 mcg/actuation HFA aerosol inhaler 2 inh inhalation ONCE Qty: 10.7 0RF Rx Instructions: as a single dose; may repeat up to 6 doses per day (12 inhalations) Eliquis 5 mg tablet 5 mg PO BID Qty: 14 0RF Eliquis DVT-PE Treat 30D Start 5 mg (74 tabs) tablets,dose pack See Rx Instructions PO PER PKG DIR Qty: 74 0RF Rx Instructions: PO PER PKG DIR (DME) lancets [Accu-Chek Softclix Lancets] Misc See Rx Instructions .Route Qty: 100 0RF Rx Instructions: As directed (DME) Relion Confirm-Micro Strip See Rx Instructions .Route Qty: 100 0RF Rx Instructions: As directed losartan 100 mg tablet 100 mg PO DAILY 90 Days Qty: 90 2RF pantoprazole [Protonix] 40 mg tablet,delayed release (DR/EC) 40 mg PO DAILY Qty: 90 1RF hydrochlorothiazide 50 mg tablet 50 mg PO DAILY Qty: 90 1RF Primary Care Provider: Kana Avelar Referrals: Kana Avelar MD [Primary Care Provider, Internal Medicine] Activity Restrictions/Additional Instructions: I have given you a copy of your CAT scan report and your echocardiogram report. On Saturday call your internal medicine physician for follow-up appointment so they can help follow all your specialty appointments. Follow-up with surgery and GI physician for concern for abdominal swelling and possible hernia. Follow-up with the assistant prosecuting attorney for further outpatient testing or stresstest orcardiac cath is indicated secondary to the severe coronary artery atherosclerosis disease. Continue taking all medication as prescribed. Continue taking Eliquis as prescribed. Print Language: Montenegrin Disposition Disposition: Home, Self Care Discharge Date/Time: 02/12/25 16:14 What to do if you have Problems For any increased pain, shortness of breath, bleeding, nausea or vomiting, chestpain, or any unexpected problems, contact your Primary Care Provider. Call [employer] [facility] ([phone]) or report tothe closest Emergency Room. Call 911 if necessary. 02/12/25 1725 Cosigner Signature (if applicable): CC: Dr. Kana Avelar MD ~ Signed [facility]10-10-2025 Discharge summary Author Barrie Delgado [facility] Note Date/Time February 12, 2025 4 :14pm [facility] Medical Records Department [address] [place] [address] Emergency Department Summary 02/12/25 MR#: [id number] Acct: [id number] Name: ADEN SAMANIEGO Rep #:[id number] : 1965 59 From: Barrie Delgado DO PCP: Dr. Kana Avelar MD Status:D EP ER Location: ED HPI History of Present Illness Chief Complaint: Shortness of Breath Narrative Narrative: Patient is a 59-year-old male who is presenting today to have CTA to rule out PE. Patient has noted extensive DVT to left lower extremity. Patient was started on Eliquis last night. Patient took Eliquis tablet last night and today. Patient had a outpatient DVT study in the vascular lab. Patient was recommended to come to the ER by internal medicine physician Storm TORRES who is one of the partners of the patient's PCP. Patient has no chest pain or shortness of breath. Patient has no risk factors for DVT at this time. Patienthad traumatic injury over 7 years ago, nothing recent. No recent traveling. 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 Patient has no chest pain, shortness of breath, fever, chills, no other acute complaints. Patient has had swelling and pain to the left leg. Patient tells me that his DVT is from his left knee up into his left groin. Patient was sent to the ER to rule out PE by Dr. Collins REVIEW OF SYSTEMS: Unless otherwise stated in this report the patient's positiveand negative responses for review of systems for constitutional, eyes, ENT, cardiovascular, respiratory, gastrointestinal, neurological, , musculoskeletal, and integument systems and related systems to the presenting problem are either stated in the history of present illness or were not pertinent or were negative for the symptoms and/or complaints related to the presenting medical problem. Vital signs reviewed and patient is not hypoxic. Patient was initially hypertensive, vital signs will be followed. General: The patient appears well and in no apparent distress. Patient is resting comfortably on cart. Not toxic, lethargic, or listless. Skin: Warm, dry, no pallor noted. There is no rash noted. Head: Normocephalic, atraumatic Eye: Normal conjunctiva, no drainage, EOMI. PERRL. Ears, Nose, Mouth, and Throat: oral mucosa is moist. Nares patent. Mouth withoutvesicles. Cardiovascular: Regular Rate and Rhythm, no murmurs, gallops, or rubs Respiratory: Patient is in no distress, no accessory muscle use, lungs are clearto auscultation, no wheezing, rales or rhonchi Back: non-tender, no CVA tenderness bilaterally to percussion. NO CTLS midline or paraspinal tenderness to palpation. GI: Soft, obese, no tenderness to palpation, no masses appreciated. No rebound, guarding, or rigidity noted. Musculoskeletal: The patient has full range of motion of all extremities and joints with no difficulty except the left lower extremity. Patient does have pain in the posterior aspect of left posterior thigh, popliteal fossa, and calf. Patient does have 2+ pitting edema to left lower extremity compared to the right. Patient's left leg is half a size larger compared to the right. Patient has no motor, no sensory deficits. Neurological: A&O x4, normal speech, no focal neurological deficits. Psychiatric: Cooperative [facility] Medical History Anxiety and depression Hernia High cholesterol Back pain Neck pain Limb weakness Diabetes SOB (shortness of breath) Hypertension Home Medications ?Medication ?Instructions ?Recorded ?Last Taken ?Type lancets (Accu-Chek Softclix #100 ea 05/23/23 Unknown R x Lancets) blood sugar diagnostic (Relion #100 ea 05/28/23 Unknow n Rx Confirm-Micro strips) losartan 100 mg tablet 100 mg PO DAILY 90 days #90 tabs 07/14/24 Unknown Rx atorvastatin 40 mg tablet mg PO QDAY 10/12/24 Unknown History glimepiride 4 mg tablet 4 mg PO BID 3 months #180 ta bs 10/12/24 Unknown Rx metformin 1,000 mg tablet 1,000 mg PO BID 3 months #18 0 tabs 10/12/24 Unknown Rx pantoprazole 40 mg tablet,delayed 40 mg PO DAILY #90 t abs 11/30/24 Unknown Rx release (Protonix) hydrochlorothiazide 50 mg tablet 50 mg PO DAILY #90 ta bs 12/31/24 Unknown Rx albuterol 90 mcg-budesonide 80 2 inh inhalation ONCE # 10.7 grams 02/11/25 Unknown Rx mcg/actuation HFA aerosol inhaler (Airsupra) apixaban 5 mg tablet (Eliquis) 5 mg PO BID #14 tabs Unknown Rx apixaban 5 mg (74 tabs) tablets in See Rx Instructions PO PER PKG DIR 02/12/25 Unknown Rx a dose pack (Eliquis DVT-PE Treat #74 tabs 30D Start) Allergy/AdvReac Type Severity Reaction Status Date / Time No Known Allergies Allergy Verified 02/11/25 14:54 Surgical History H/O hernia repair H/O left wrist surgery Social History Smoking Status: Never smoker alcohol intake: current alcohol intake frequency: holidays/special occasions only substance use type: does not use what type of physical activity do you participate in: bicycling frequency: 3-4 times per week do you feel safe at home: Yes ROS ROS ED ROS Narrative REVIEW OF SYSTEMS: Unless otherwise stated in this report the patient's positiveand negative responses for review of systems for constitutional, eyes, ENT, cardiovascular, respiratory, gastrointestinal, neurological, , musculoskeletal, and integument systems and related systems to the presenting problem are either stated in the history of present illness or were not pertinent or were negative for the symptoms and/or complaints related to the presenting medical problem. EXAM Physical Exam Narrative Exam Narrative: Vital signs reviewed and patient is not hypoxic. General: The patient appears well and in no apparent distress. Patient is resting comfortably on cart. Not toxic, lethargic, or listless. Skin: Warm, dry, no pallor noted. There is no rash noted. Head: Normocephalic, atraumatic Eye: Normal conjunctiva, no drainage, EOMI. PERRL. Ears, Nose, Mouth, and Throat: oral mucosa is moist. Nares patent. Mouth withoutvesicles. Cardiovascular: Regular Rate and Rhythm, no murmurs, gallops, or rubs Respiratory: Patient is in no distress, no accessory muscle use, lungs are clearto auscultation, no wheezing, rales or rhonchi Back: non-tender, no CVA tenderness bilaterally to percussion. NO CTLS midline or paraspinal tenderness to palpation. GI: Soft, no tenderness to palpation, no masses appreciated. No rebound, guarding, or rigidity noted. Musculoskeletal: The patient has full range of motion of all extremities and joints with no difficulty. Patient has no motor, no sensory deficits. Neurological: A&O x4, normal speech, no focal neurological deficits. Psychiatric: Cooperative Const Vital Signs: 02/12/25 08:58 02/12/25 09:27 02/12/25 09:27 Temperature 98.2 F Temperature Source Oral Pulse Rate 87 Respiratory Rate 18 Respiratory Effort Short of Breath Respiratory Depth Normal Respiratory Pattern Normal Blood Pressure 194/103 H Blood Pressure Mean 133 Pulse Ox 99 Oxygen Delivery Method Room Air Room Air Room Air 02/12/25 10:41 02/12/25 11:03 02/12/25 15:50 Temperature 98.7 F Temperature Source Pulse Rate 79 68 74 Respiratory Rate 20 H 16 19 H Respiratory Effort Respiratory Depth Respiratory Pattern Blood Pressure 160/98 H 167/96 H 177/99 H Blood Pressure Mean 118 119 125 Pulse Ox 99 98 96 Oxygen Delivery Method Room Air Room Air MDM MDM MDM Narrative Medical decision making narrative: Patient seen and examined: Patient may have IV, cardiac workup, CTA of the chestto rule out PE Differential diagnosis includes but is not limited to: PE, hypertension, ACS, electrolyte abnormality, left leg DVT Relevant laboratory interpretation: Initial troponin was 24, repeat troponin was Radiological studies: Ultrasound report showed extensive DVT from the left knee up into the left groin, I do not have a copy of the report yet, CTA of the chest showed acute pulmonary embolism on the right, equivocal right heart strain, severe coronary artery disease atherosclerosis disease. PE is present in the interlobar pulmonary artery extending into the segmental pulmonary arteries in the right lobe Reevaluation: Patient was updated on the CT report, slightly elevated troponin at 24 and is aware this will be repeated. Patient blood pressure has improved. Patient tellme that he has a follow-up appointment scheduled already on Saturday with vascular surgery to discuss his clot. Patient has already started Eliquis yesterday and today, Dr. Vaca has called in a prescription for Eliquis starter pack into the pharmacy already Preliminary report of patient's ultrasound on his left leg shows extensive DVT from the left popliteal vein, left femoral vein, left common femoral vein, left external iliac vein and left profunda vein 1210 I have spoken to internal medicine physician who sent the patient in, Dr. Storm Vaca. Patient's troponin has improved from 24-23. Patient CT shows equivocal right heart strain. When I spoke to the radiologist on the phone, Qasim, he stated that there does not really show any signs of right heart strain, there is some straightening or bowing of the if ventricular septum, but otherwise no signs of right heart strain and stated it was equivocal. 1220 I have spoken to the assistant prosecuting attorney, Dr. Mcwilliams. We also discussed patient'smultiple comorbidities of obesity, diabetes, cholesterol, hypertension, and alsopatient's age, male. Patient needs a follow-up with cardiology as well, last time patient had a stress echocardiogram was over 10 to 20 years ago. Patient was told that he had a NC when he was younger, but stated it was secondary to drinking 2 L of Mountain Dew a day. We do not have vascular surgery on-call today, but secondary to this equivocal finding, I am ordering a stat echo in [facility] [place], [place] to make sure there is no acute obvious signs of right heart strain which she does not appear to be on CT finding and with the radiologist told me on the phone. 2D ECHO showed no significant right ventricular heart strain. A copy of the report was given to patient Dr Mcwilliams read the echocardiogram. I discussed patient 10 minutes of discharge on the follow-up plan. Patient will follow-up with his PCP, patient knows that he needs to follow-up with cardiology along with following up with surgeon/GI surgeon for the swelling to his abdomen to rule out diastasis versus ventral wall hernia. Patient is on Eliquis, patient took Eliquis last night and today. has sent a prescription for Eliquis to the store. Patient and his mother were extremely thankful and happy from the time spent at bedside with myself and nursing staff. Patient was educated at length on patient's left leg DVT, pulmonary-ism, and right heart strain versus not. Patient second troponin improved. No question of discharge Critical care time 45 minutes exclusive from separate billable procedures that were performed. The following was considered in the determination of critical care but not limited to the level of medical decision making, intensive cardiac and/or respiratory monitoring, frequent vital sign monitoring, evaluation of laboratory studies, evaluation of radiographic studies, oxygen monitoring, and constant monitoring and speaking to family at bedside Social barriers to healthcare: There are no food insecurities, there is no issuewith transportation, there are no insurance barriers Lab Data Attestation: I reviewed the patient's lab results. Labs: Laboratory Results - last 24 hr 02/12/25 02/12/25 09:25 11:05 WBC 7.8 RBC 4.16 L Hgb 13.0 Hct 37.8 L MCV 90.9 MCH 31.3 MCHC 34.4 RDW Std Deviation 39.8 RDW Coeff of Leonel 11.9 Plt Count 236 MPV 11.7 Immature Gran % (Auto) 0.500 Neut % (Auto) 69.7 Lymph % (Auto) 19.5 Wilkes % (Auto) 6.7 Eos % (Auto) 3.0 Baso % (Auto) 0.6 Absolute Neuts (auto) 5.4 Absolute Lymphs (auto) 1.52 Nucleated RBC % 0 PT 15.4 H INR 1.2 APTT 32.2 Sodium 140 Potassium 4.8 Chloride 106 Carbon Dioxide 24.1 Anion Gap 10 BUN 20 H Creatinine 1.11 Estim Creat Clear Calc 103.20 Est GFR (MDRD) Non-Af 76 BUN/Creatinine Ratio 17.7 Glucose 188 H Calcium 9.0 Magnesium 2.0 Troponin T High Sens 24 H Troponin T Hi Sens 2 Hr 23 H NT pro BNP II 119 Radiography Chest X-Ray - ED: 1 View and Read by ED Physician (Chest x-ray shows no acute cardiopulmonary disease, no infiltrate, no effusion) Diagnostic Testing: Clinical Impression(s) from Imaging Studies Chest X-Ray 02/12/25 09:35 IMPRESSION: No acute abnormality. Reading Location: [facility] Chest CTA 02/12/25 09:47 IMPRESSION: 1. Acute pulmonary embolus on the right. Equivocal RV strain. 2. Severe coronary artery atherosclerotic disease. Red Alert: Pulmonary embolus The critical findings in the findings and impression above were relayed directlyby me by telephone to Barrie Delgado on 02/12/2025 at 11:20 am with readback verification. Reading Location: [facility] Echocardiogram 02/12/25 12:19 Interpretation Summary Mild concentric left ventricular hypertrophy. The left ventricular ejection fraction is 65 %. Stage 1 diastolic dysfunction. There is Mild focal posterior mitral annular calcification. Mildly dilated aortic root. Ordering Physician: Barrie Delgado Referring Physician: Kana Avelar Performed By: Siobhan Garcia RCS Initial EKG: Attestation: I personally reviewed and interpreted this EKG as follows: (You may alternate Tylenol and either Motrin, Advil, ibuprofen every 4 hours as needed for pain/fever. Take anti-inflammatories with food or drink to help buffer the medication. MAX dose of Tylenol is 3000 mg a day. MAX dose of Motrin, Advil, ibuprofen is 2400 mg a day. Patient seen and examined: D) Discharge Plan Triage Chief Complaint: Shortness of Breath Other Complaint: Lower Extremity Injury ED Provider: Barrie Delgado Dx/Rx/DC Orders Clinical Impression: Pulmonary embolism of right lung, Acute deep vein thrombosis (DVT) of left lower extremity Instructions: Pulmonary Embolism, ED Deep Vein Thrombosis (DVT) Prescriptions: No Action atorvastatin 40 mg tablet PO QDAY Patient Comments: TAKE 1 TABLET BY MOUTH EVERY DAY glimepiride 4 mg tablet 4 mg PO BID 90 Days Qty: 180 1RF metformin 1,000 mg tablet 1,000 mg PO BID 90 Days Qty: 180 1RF Airsupra 90-80 mcg/actuation HFA aerosol inhaler 2 inh inhalation ONCE Qty: 10.7 0RF Rx Instructions: as a single dose; may repeat up to 6 doses per day (12 inhalations) Eliquis 5 mg tablet 5 mg PO BID Qty: 14 0RF Eliquis DVT-PE Treat 30D Start 5 mg (74 tabs) tablets,dose pack See Rx Instructions PO PER PKG DIR Qty: 74 0RF Rx Instructions: PO PER PKG DIR (DME) lancets [Accu-Chek Softclix Lancets] Misc See Rx Instructions .Route Qty: 100 0RF Rx Instructions: As directed (DME) Relion Confirm-Micro Strip See Rx Instructions .Route Qty: 100 0RF Rx Instructions: As directed losartan 100 mg tablet 100 mg PO DAILY 90 Days Qty: 90 2RF pantoprazole [Protonix] 40 mg tablet,delayed release (DR/EC) 40 mg PO DAILY Qty: 90 1RF hydrochlorothiazide 50 mg tablet 50 mg PO DAILY Qty: 90 1RF Primary Care Provider: Kana Avelar Referrals: Kana Avelar MD [Primary Care Provider, Internal Medicine] Activity Restrictions/Additional Instructions: I have given you a copy of your CAT scan report and your echocardiogram report. On Saturday call your internal medicine physician for follow-up appointment so they can help follow all your specialty appointments. Follow-up with surgery and GI physician for concern for abdominal swelling and possible hernia. Follow-up with the assistant prosecuting attorney for further outpatient testing or stress test orcardiac cath is indicated secondary to the severe coronary artery atherosclerosis disease. Continue taking all medication as prescribed. Continue taking Eliquis as prescribed. Print Language: Montenegrin Disposition Disposition: Home, Self Care Discharge Date/Time: 02/12/25 16:14 What to do if you have Problems For any increased pain, shortness of breath, bleeding, nausea or vomiting, chestpain, or any unexpected problems, contact your Primary Care Provider. Call [facility] ([phone]) or report to the closest Emergency Room. Call 911 if necessary. 02/12/25 1725 <Electronically signed by Barrie Dlegado DO> Cosigner Signature (if applicable): CC: Dr. Kana Avelar MD ~ Signed [facility] Work Phone: [phone] 478-684910-10-2025 Radiology Diagnostic study note [facility] Imaging Services [address] [place], [place] [address] CTA Chest W/WO Contrast MR#: [id number] Acct: [id number] Name: ADEN SAMANIEGO Rep #: [id number] : 1965 M 59 From: David Umanzor MD PCP: Dr. Kana Avelar MD Status: R EG ER Study:CTA Chest W/WO Contrast Date of Exam: 02/12/25 Exam# [id number] Ordering Dr: Александр Delgado DO PROCEDURE: CTA CHEST W/WO CONTRAST 02/12/2025 REASON FOR EXAM: RULE OUT PE Dyspnea. Positive left lower extremity DVT. TECHNIQUE: Procedure Code: [id number] Modality: CT Procedure: CTA CHEST W/WO CONTRAST Multiplanar Sagittal and Coronal images were obtained. 3D post processing was performed CONTRAST: Isovue 370 VOLUME: 97 mL One or more dose reduction techniques were used (e.g., Automated exposure control, adjustment of the mA and/or kV according to patient size, use of iterative reconstruction technique). RADIATION DOSE SUMMARY: CTDlvol: 30 mGy DLP: 533 mGycm COMPARISON: Chest x-ray of the same day # of known CTs in the past 12 months: 0 # of known Cardiac Nuclear Medicine Studies in the past 12 months: 0 FINDINGS: Thoracic Aorta: Timing and quality of the contrast bolus is diagnostic. There is no evidence of acute aortic rupture or dissection. Incidental note is made of left vertebral artery originating directly from the arch. Heart: Normal-size. No pericardial effusion. Heavy, three-vessel coronary artery atherosclerotic plaque is present (visual Agatson score: V3, N3) Pulmonary Vessels: The timing and quality of the contrast bolus is diagnostic. Acute pulmonary embolus is present in the right interlobar pulmonary artery extending into the segmental pulmonary arteries of the right lower lobe. RV strain: RV/LV ratio (>1.0): Absent Straightening or bowing of the interventricular septum: Present. Enlargement of the main PA: Absent Reflux of contrast into the hepatic IVC: Absent Hardware: None Lymph nodes: None appear enlarged Lungs and Airways: Minimal, dependent subsegmental atelectasis. No consolidation, mass or worrisomenodule. Pleura: No pleural effusion or pneumothorax Upper Abdomen: Likely fatty liver. Bones: Degenerative changes of the thoracic spine. CT/CTA Chest W/WO Contrast IMPRESSION: 1. Acute pulmonary embolus on the right. Equivocal RV strain. 2. Severe coronary artery atherosclerotic disease. Red Alert: Pulmonary embolus The critical findings in the findings and impression above were relayed directlyby me by telephone to Barrie Delgado on 02/12/2025 at 11:20 am with readback verification. Reading Location: [facility] CC: Dr. Kana Avelar MD; Dr. Barrie Delgado DO ~ Trust Evaluation Supervisor: Signed [facility]10-10-2025 Radiology Diagnostic study note [facility] Imaging Services [address] [place], [place] [id number] Chest 1 View (Portable) MR#: [id number] Acct: [id number] Name: ADEN SAMANIEGO Rep #: [id number] : 1965 M 59 From: David Umanzor MD PCP: Dr. Kana Avelar MD Status: R EG ER Study:Chest 1 View (Portable) Date of Exam: 02/12/25 Exam# [id number] Ordering Dr: Александр Delgado DO PROCEDURE: CHEST 1 VIEW (PORTABLE) 02/12/2025 REASON FOR EXAM: CHEST PAIN TECHNIQUE: Frontal view of the chest. COMPARISON: None FINDINGS: Hardware: EKG leads Heart: Mildly enlarged. Lungs: Clear. No pneumothorax or pleural effusion. Bones: The bones are unremarkable. RAD/Chest 1 View (Portable) IMPRESSION: No acute abnormality. Reading Location: [id number] CC: Dr. Kana Avelar MD; Dr. Barrie Delgado, DO ~ Trust Evaluation Supervisor: Signed [facility]10-09-2025 Progress [facility] Internal Medicine [address] [place] [address] [place] [address] OFFICE VISIT Date of Service: 02/11/25 MR#: [id number] Acct: [id number] Name: ADEN SAMANIEGO Rep #: [id number] : 1965 Provider: HARDEEP Leon Age/Sex: 59/M [place] [facility] [place] Status: Signed Intake Vital Signs 01/26/25 06:42 02/11/25 14:57 Height 6 ft 1 in 6 ft 1 in Weight: 303 lb 304 lb 6 oz BMI 39.9 40.1 BP 142/80 H 160/90 H Blood Pressure Location Lt brachial Rt brachial Position Sitting Sitting Respiration 16 Pulse 80 84 Pulse Source Monitor Temp 98.2 F 96.5 F L Temp Source Oral Temporal Pulse Oximetry (%) 95 94 Oxygen Delivery Method room air room air Intake Visit Reasons: Left leg swelling. Right knee pain. Shrtness of B Chief Complaint: left leg swelling and SOB Vet Assistant Required: No Accompanied by: Self Is patient in pain?: No Allergies No Known Allergies Allergy (Verified 02/11/25 14:54) Medications ?Medication ?Instructions ?Recorded ?Confirmed ?Type lancets (Accu-Chek Softclix #100 ea 05/23/23 02/11/25 Rx Lancets) blood sugar diagnostic (Relion #100 ea 05/28/23 Rx Confirm-Micro strips) losartan 100 mg tablet 100 mg PO DAILY 90 days #90 tabs 07/14/24 02/11/25 Rx atorvastatin 40 mg tablet mg PO QDAY 10/12/24 02/11/25 History glimepiride 4 mg tablet 4 mg PO BID 3 months #180 ta bs 10/12/24 02/11/25 Rx metformin 1,000 mg tablet 1,000 mg PO BID 3 months #18 0 tabs 10/12/24 02/11/25 Rx pantoprazole 40 mg tablet,delayed 40 mg PO DAILY #90 t abs 11/30/24 02/11/25 Rx release (Protonix) hydrochlorothiazide 50 mg tablet 50 mg PO DAILY #90 ta bs 12/31/24 02/11/25 Rx albuterol 90 mcg-budesonide 80 2 inh inhalation ONCE # 10.7 grams 02/11/25 02/11/25 Rx mcg/actuation HFA aerosol inhaler (Airsupra) apixaban 5 mg tablet (Eliquis) 5 mg PO BID #14 tabs 02/11/25 Rx Nurse's Note: left leg swelling right knee pain and suzette feel very weak collapsed legs 3 times PFSH Medical History Anxiety and depression Hernia High cholesterol Back pain Neck pain Limb weakness Diabetes SOB (shortness of breath) Hypertension Surgical History H/O hernia repair H/O left wrist surgery Social History Smoking Status: Never smoker alcohol intake: current alcohol intake frequency: holidays/special occasions only substance use type: does not use what type of physical activity do you participate in: bicycling frequency: 3-4 times per week do you feel safe at home: Yes HPI HPI Chief Complaint: left leg swelling and SOB Details: ADEN SAMANIEGO, is a 59 M who presents to the office today for multiple complaints. Patient states that has had swelling in the left leg for the past 2 weeks now. He states that there was no accidents, falls, trauma or anything elsethat he thought would have caused this. He states that it is pretty much swollenall the time. He states that sometimes it is worse than others. He has tried to ice and elevate this. He has even taken off work to be able to do these things. Nothing has improved the swelling [facility] for [facility] infection. He states that he still has some intermittent symptoms. He states that he does feel worse in the morning where he coughs so hard and long that he gets dry heaves. He states that most of the time this is no-productive and if he does getstuff up it is clear phlegm. He did take antibiotics and did have improvement but not resolution. ROS Const Constitutional: No body ache, excessive sweating, fatigue, fever(s), frequent falls, headache(s), snoring, weakness, weight change, sleep problems or change in appetite Eyes Eyes: No blurry vision, change in vision, eye pain or Light sensitivity ENT ENT: No abnormal hearing, ear or mastoid pain, tinnitus, nasal congestion, headache(s), neck pain or sore throat Resp Respiratory: No cough, shortness of breath, snoring or wheezing Cardio Cardiology: No chest pain at rest, chest pain with exertion, excessive sweating,shortness of breath, dyspnea on exertion, lightheadedness, orthopnea or palpitations Gastro GI: No abdominal pain, change in bowel habits, constipation, cramping, diarrhea,nausea/dyspepsia orvomiting Genitourinary Male: No burning urination, painful urination, urinary incontinence, urinary frequency or blood in urine Musc Musculoskeletal: No abnormal gait, joint pain, back pain, limited range of motion, neck pain, numbness, stiffness, tingling or Arthritis Skin Skin: No dry skin, redness, lesions, itchy eyes, rash or wounds Neuro Neurology: No abnormal gait, abnormal hearing, abnormal speech, dizziness, weakness, frequent falls, headache(s), memory loss, numbness or tingling Psych Psychiatric: No anxiety, No change in appetite, No depression, No memory loss and No Thoughts of harming yourself/Others Endo Endocrine: No cold intolerance, excessive sweating, fatigue, flushing, heat intolerance, increased thirst/drinking, increased hunger or weight change Aller/Imm Allergy/Immunologic: No itchy eyes, seasonal allergy symptoms, hives or wheezing Venkatesh/Lymp Hematologic/Lymphatic: No easy bleeding, easy bruising or enlarged lymph nodes Exam Const General: cooperative, comfortable, no acute distress, well developed, well groomed and not ill appearing Nutritional Appearance: obese Orientation: alert, awake and oriented x3 Limitations: mental status not altered [facility] Head: normocephalic and atraumatic Ears: hearing grossly normal bilaterally Neck Neck: supple and nontender Lymphatic: no lymphadenopathy noted Resp Effort & Inspection: normal respiratory effort, able to speak in complete sentences, symmetric chest movement, normal respiratory pattern and no cough Auscultation: Bilateral: Clear to Auscultation Cardio Rate: regular rate Rhythm: regular rhythm Heart Sounds: S1 normal, S2 normal and no murmurs Bruits: no carotid bruits Pulses: radial pulses present bilaterally 1+ and dorsalis pedis present on the left 1+ Skin Rashes: no rashes Neuro General: patient alert, patient awake, patient oriented x3, gait normal and moves all extremities Cognition: normal cognition Speech: speech normal Gait: normal gait Extrem General: normal gait, no cyanosis and edema Laterality: left Location: Lower legSeverity: pitting and 2+ Other: Evident edema and asymmetries with the right and left lower extremity. No open wounds or obvious skin changes noted in the extremity. There is no erythema, ecchymosis/bruising, or other skin changes. Psych Appearance: grossly normal Mental Status: mental status grossly normal Mood: congruent mood Affect: normal affect and labile affect Speech and Movement: speech and movement normal Attitude: cooperative Coding Level of Care Code Off vis,est,level 3 Diagnoses Swelling of left lower extremity M79.89 Acute bronchitis, unspecified organism J20.9 Bronchitis organism: unspecified organism Elevated blood pressure reading R03.0 Assessment and Plan Assessment and Plan (1) Swelling of left lower extremity: Status: Acute Plan: Patient presents to the office today with approximately 2-week history of unilateral left leg swelling. Patient states that there was no injury or incident that would have started this pain. He states he just noticed it progressively get worse. He states is pretty much been consistent over the past2 weeks. This does not really get better first thing in the morning. Patient denies any recent tripsor travel and any hospitalizations within the past 3 to 6 months. At this time we did discuss that as a diabetic especially, unilateralswelling is a DVT until proven otherwise and therefore need to get him a stat Doppler. We did call for stat Doppler although they were not scheduling for therest ofthe evening and therefore patient was given first thing in the morning appointment. We are to go ahead and get a stat D-dimer. If this is positive weare can have him start Eliquis until he gets his Doppler done tomorrow morning. Explained to patient pathophysiology of DVT and the concerns of complication risks associated with this. If patient experiences any acute shortness of breath he needs to present to emergency department this evening. If the Dopplertomorrow morning is negative then we arelikely going to proceed with a CT scan of the abdomen/pelvis with runoff to look for any vascular ab normalities and a larger vascular structures. (2) Acute bronchitis: Status: Acute Qualifiers: Bronchitis organism: unspecified organism Qualified Code(s): J20.9 - Acute bronchitis, unspecified Plan: Patient's chest is clear today at the same time with persisting cough that is dry/Hacky, there likely is still some irritation/inflammation of the airways. With his A1c at 9.2 I do not want to put him on oral steroids and therefore we will go ahead and get him started on Airsupra. Patient was givena savings cardas well. He is to take the paper prescription to the pharmacy along with this coupon.If this is not covered then we will go ahead and have to give him a different inhaled steroid. (3) Elevated blood pressure reading: Status: Acute Plan: Discussed with patient that his blood pressure is elevated. He states its been higher than this. Patient does not take this however at home regularly. He does have a blood pressure monitor. I wanted to monitor this over the next 3 to5 days. If worsening numbers in the 140s or above systolically andin the 90s diastolically then we have to start him on medication. We Argun have to recheckpatient with all of his complaints probably within the next 3 to 4 weeks anyhow it would be an opportunity tocheck his blood pressure then. This note was generated with TreeRing dictation software. It may contain incorrectwords, spelling, and punctuation that were not noted in checking the note beforesigning. 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, M79.89 - Other specified soft tissue disorders D-Dimer Quantitative (DVT/PE) Today M79.89 - Other specified soft tissue disorders Medications: New albuterol-budesonide 90-80 mcg/actuation (Airsupra) as a single dose; may repeat up to 6 doses per day (12 inhalations) 2 inhalations inhalation ONCE 10.7 grams 0RF apixaban (Eliquis) 5 mg PO BID 14 tabs 0RF Plan Details Follow Up: 4 Weeks 02/11/25 1712 HARDEEP MEIER> Date _ Russell MEIER Cosigner Signature: Date (if applicable) CC: ~ [facility]10-09-2025 Progress note Author Russell Gomes [facility] Services Note Date/Time February 11, 2025 4: 13pm [facility] Internal Medicine [address] [place] [address] [place] [address] OFFICE VISIT Date of Service: 02/11/25 MR#: [id number] Acct: [id number] Name: ADEN SAMANIEGO Rep #: [id number] : 1965 Provider: HARDEEP Leon Age/Sex: 59/M [place] [facility] [place] Status: Signed Intake Vital Signs 01/26/25 06:42 02/11/25 14:57 Height 6 ft 1 in 6 ft 1 in Weight: 303 lb 304 lb 6 oz BMI 39.9 40.1 BP 142/80 H 160/90 H Blood Pressure Location Lt brachial Rt brachial Position Sitting Sitting Respiration 16 Pulse 80 84 Pulse Source Monitor Temp 98.2 F 96.5 F L Temp Source Oral Temporal Pulse Oximetry (%) 95 94 Oxygen Delivery Method room air room air Intake Visit Reasons: Left leg swelling. Right knee pain. Shrtness of B Chief Complaint: left leg swelling and SOB Vet Assistant Required: No Accompanied by: Self Is patient in pain?: No Allergies No Known Allergies Allergy (Verified 02/11/25 14:54) Medications ?Medication ?Instructions ?Recorded ?Confirmed ?Type lancets (Accu-Chek Softclix #100 ea 05/23/23 02/11/25 Rx Lancets) blood sugar diagnostic (Relion #100 ea 05/28/23 Rx Confirm-Micro strips) losartan 100 mg tablet 100 mg PO DAILY 90 days #90 tabs 07/14/24 02/11/25 Rx atorvastatin 40 mg tablet mg PO QDAY 10/12/24 02/11/25 History glimepiride 4 mg tablet 4 mg PO BID 3 months #180 ta bs 10/12/24 02/11/25 Rx metformin 1,000 mg tablet 1,000 mg PO BID 3 months #18 0 tabs 10/12/24 02/11/25 Rx pantoprazole 40 mg tablet,delayed 40 mg PO DAILY #90 t abs 11/30/24 02/11/25 Rx release (Protonix) hydrochlorothiazide 50 mg tablet 50 mg PO DAILY #90 ta bs 12/31/24 02/11/25 Rx albuterol 90 mcg-budesonide 80 2 inh inhalation ONCE # 10.7 grams 02/11/25 02/11/25 Rx mcg/actuation HFA aerosol inhaler (Airsupra) apixaban 5 mg tablet (Eliquis) 5 mg PO BID #14 tabs 02/11/25 Rx Nurse's Note: left leg swelling right knee pain and suzette feel very weak collapsed legs 3 times PFSH Medical History Anxiety and depression Hernia High cholesterol Back pain Neck pain Limb weakness Diabetes SOB (shortness of breath) Hypertension Surgical History H/O hernia repair H/O left wrist surgery Social History Smoking Status: Never smoker alcohol intake: current alcohol intake frequency: holidays/special occasions only substance use type: does not use what type of physical activity do you participate in: bicycling frequency: 3-4 times per week do you feel safe at home: Yes HPI HPI Chief Complaint: left leg swelling and SOB Details: ADEN SAMANIEGO, is a 59 M who presents to the office today for multiple complaints. Patient states that has had swelling in the left leg for the past 2 weeks now. He states that there was no accidents, falls, trauma or anything elsethat he thought would have caused this. He states that it is pretty much swollenall the time. He states that sometimes it is worse than others. He has tried to ice and elevate this. He has even taken off work to be able to do these things. Nothing has improved the swelling Patient [facility] 3 [facility] ago for sinus infection. He states that he still has some intermittent symptoms. He states that he does feel worse in the morning where he coughs so hard and long that he gets dry heaves. He states that most of the time this is no-productive and if he does get stuff up it is clear phlegm. He did take antibiotics and did have improvement but not resolution. ROS Const Constitutional: No body ache, excessive sweating, fatigue, fever(s), frequent falls, headache(s), snoring, weakness, weight change, sleep problems or change in appetite Eyes Eyes: No blurry vision, change in vision, eye pain or Light sensitivity ENT ENT: No abnormal hearing, ear or mastoid pain, tinnitus, nasal congestion, headache(s), neck pain or sore throat Resp Respiratory: No cough, shortness of breath, snoring or wheezing Cardio Cardiology: No chest pain at rest, chest pain with exertion, excessive sweating,shortness of breath, dyspnea on exertion, lightheadedness, orthopnea or palpitations Gastro GI: No abdominal pain, change in bowel habits, constipation, cramping, diarrhea,nausea/dyspepsia or vomiting Genitourinary Male: No burning urination, painful urination, urinary incontinence, urinary frequency or blood in urine Musc Musculoskeletal: No abnormal gait, joint pain, back pain, limited range of motion, neck pain, numbness, stiffness, tingling or Arthritis Skin Skin: No dry skin, redness, lesions, itchy eyes, rash or wounds Neuro Neurology: No abnormal gait, abnormal hearing, abnormal speech, dizziness, weakness, frequent falls, headache(s), memory loss, numbness or tingling Psych Psychiatric: No anxiety, No change in appetite, No depression, No memory loss and No Thoughts of harming yourself/Others Endo Endocrine: No cold intolerance, excessive sweating, fatigue, flushing, heat intolerance, increased thirst/drinking, increased hunger or weight change Aller/Imm Allergy/Immunologic: No itchy eyes, seasonal allergy symptoms, hives or wheezing Venkatesh/Lymp Hematologic/Lymphatic: No easy bleeding, easy bruising or enlarged lymph nodes Exam Const General: cooperative, comfortable, no acute distress, well developed, well groomed and not ill appearing Nutritional Appearance: obese Orientation: alert, awake and oriented x3 Limitations: mental status not altered [facility] Head: normocephalic and atraumatic Ears: hearing grossly normal bilaterally Neck Neck: supple and nontender Lymphatic: no lymphadenopathy noted Resp Effort & Inspection: normal respiratory effort, able to speak in complete sentences, symmetric chest movement, normal respiratory pattern and no cough Auscultation: Bilateral: Clear to Auscultation Cardio Rate: regular rate Rhythm: regular rhythm Heart Sounds: S1 normal, S2 normal and no murmurs Bruits: no carotid bruits Pulses: radial pulses present bilaterally 1+ and dorsalis pedis present on the left 1+ Skin Rashes: no rashes Neuro General: patient alert, patient awake, patient oriented x3, gait normal and moves all extremities Cognition: normal cognition Speech: speech normal Gait: normal gait Extrem General: normal gait, no cyanosis and edema Laterality: left Location: Lower legSeverity: pitting and 2+ Other: Evident edema and asymmetries with the right and left lower extremity. No open wounds or obvious skin changes noted in the extremity. There is no erythema, ecchymosis/bruising, or other skin changes. Psych Appearance: grossly normal Mental Status: mental status grossly normal Mood: congruent mood Affect: normal affect and labile affect Speech and Movement: speech and movement normal Attitude: cooperative Coding Level of Care Code Off vis,est,level 3 Diagnoses Swelling of left lower extremity M79.89 Acute bronchitis, unspecified organism J20.9 Bronchitis organism: unspecified organism Elevated blood pressure reading R03.0 Assessment and Plan Assessment and Plan (1) Swelling of left lower extremity: Status: Acute Plan: Patient presents to the office today with approximately 2-week history of unilateral left leg swelling. Patient states that there was no injury or incident that would have started this pain. He states he just noticed it progressively get worse. He states is pretty much been consistent over the past2 weeks. This does not really get better first thing in the morning. Patient denies any recent trips or travel and any hospitalizations within the past 3 to 6 months. At this time we did discuss that as a diabetic especially, unilateralswelling is a DVT until proven otherwise and therefore need to get him a stat Doppler. We did call for stat Doppler although they were not scheduling for therest of the evening and therefore patient was given first thing in the morning appointment. We are to go ahead and get a stat D-dimer. If this is positive weare can have him start Eliquis until he gets his Doppler done tomorrow morning. Explained to patient pathophysiology of DVT and the concerns of complication risks associated with this. If patient experiences any acute shortness of breath he needs to present to emergency department this evening. If the Dopplertomorrow morning is negative then we are likely going to proceed with a CT scan of the abdomen/pelvis with runoff to look for any vascular abnormalities and a larger vascular structures. (2) Acute bronchitis: Status: Acute Qualifiers: Bronchitis organism: unspecified organism Qualified Code(s): J20.9 - Acute bronchitis, unspecified Plan: Patient's chest is clear today at the same time with persisting cough that is dry/Hacky, there likely is still some irritation/inflammation of the airways. With his A1c at 9.2 I do not want to put him on oral steroids and therefore we will go ahead and get him started on Airsupra. Patient was given a savings cardas well. He is to take the paper prescription to the pharmacy along with this coupon. If this is not covered then we will go ahead and have to give him a different inhaled steroid. (3) Elevated blood pressure reading: Status: Acute Plan: Discussed with patient that his blood pressure is elevated. He states its been higher than this. Patient does not take this however at home regularly. He does have a blood pressure monitor. I wanted to monitor this over the next 3 to5 days. If worsening numbers in the 140s or above systolically and in the 90s diastolically then we have to start him on medication. We Argun have to recheckpatient with all of his complaints probably within the next 3 to 4 weeks anyhow it would be an opportunity to check his blood pressure then. This note was generated with [employer] dictation software. It may contain incorrectwords, spelling, and punctuation that were not noted in checking the note beforesigning. 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, M79.89 - Other specified soft tissue disorders D-Dimer Quantitative (DVT/PE) Today M79.89 - Other specified soft tissue disorders Medications: New albuterol-budesonide 90-80 mcg/actuation (Airsupra) as a single dose; may repeat up to 6 doses per day (12 inhalations) 2 inhalations inhalation ONCE 10.7 grams 0RF apixaban (Eliquis) 5 mg PO BID 14 tabs 0RF Plan Details Follow Up: 4 Weeks 02/11/25 1712 <Electronically signed by Russell MEIER> Date _ Russell MEIER [facility] Signature: Date (if applicable) CC: ~ [place] [facility] Work Phone: 1(944) 277-542609-23-2025 [facility] [address], [address] [place] [address] OFFICE VISIT Date of Service: 01/26/25 MR#: [id number] Acct: [id number] Name: ADEN SAMANIEGO JOSEFA Rep #: [id number] : 1965 Provider: HARDEEP Dowell Age/Sex: 59/M [place] [facility] [place] Status: Signed Intake Vital Signs 12/21/24 10:00 01/26/25 06:42 Height 6 ft 1 in 6 ft 1 in Weight: 299 lb 303 lb BMI 39.4 39.9 BP 162/90 H 142/80 H Blood Pressure Location Lt brachial Lt brachial Position Sitting Sitting Respiration 18 Pulse 67 80 Pulse Source Monitor Temp 97.0 F L 98.2 F Temp Source Temporal Oral Pulse Oximetry (%) 96 95 Oxygen Delivery Method room air room air Intake Visit Reasons: CONGESTION Chief Complaint: Congestion Accompanied by: Self Allergies No Known Allergies Allergy (Verified 01/26/25 06:41) Medications ?Medication ?Instructions ?Recorded ?Confirmed ?Type lancets (Accu-Chek Softclix #100 ea 05/23/23 01/26/25 Rx Lancets) blood sugar diagnostic (Relion #100 ea 05/28/23 Rx Confirm-Micro strips) losartan 100 mg tablet 100 mg PO DAILY 90 days #90 tabs 07/14/24 01/26/25 Rx atorvastatin 40 mg tablet mg PO QDAY 10/12/24 01/26/25 History glimepiride 4 mg tablet 4 mg PO BID 3 months #180 ta bs 10/12/24 01/26/25 Rx metformin 1,000 mg tablet 1,000 mg PO BID 3 months #18 0 tabs 10/12/24 01/26/25 Rx pantoprazole 40 mg tablet,delayed 40 mg PO DAILY #90 t abs 11/30/24 01/26/25 Rx release (Protonix) hydrochlorothiazide 50 mg tablet 50 mg PO DAILY #90 ta bs 12/31/24 01/26/25 Rx amoxicillin 875 mg-potassium 1 tab PO BID #20 tabs 01/26/25 Rx clavulanate 125 mg tablet Nurse's Note: Congestion, coughing, headache from coughing, intermittent fevers. X 2 weeks. PFSH Medical History Anxiety and depression Hernia High cholesterol Back pain Neck pain Limb weakness Diabetes SOB (shortness of breath) Hypertension Surgical History H/O hernia repair H/O left wrist surgery Social History Smoking Status: Never smoker alcohol intake: current alcohol intake frequency: holidays/special occasions only substance use type: does not use what type of physical activity do you participate in: bicycling frequency: 3-4 times per week do you feel safe at home: Yes HPI HPI Chief Complaint: Congestion Details: ADEN SAMANIEGO, is a 59 M who presents to the [facility] today [facility] for approximately 2-week history of progressively worsening facial pressure/congestion with purulent postnasal drip/cough and PHELPS and intermittent fever (? Tmax). No complaints of chills, myalgias, fatigue, runny nose, or nausea/vomiting/diarrhea. No complaints of chest pain/shortness of breath/dyspnea on exertion. No close contacts with similar complaints. No other associated symptoms and no other alleviating/aggravating factors. ROS Const Constitutional: No other (as above) Exam Const General: cooperative, healthy appearing and no acute distress Orientation: alert, awake HENMT Head: normal to inspection Ears: hearing grossly normal bilaterally, external ears normal, TM's normal bilaterally and EAC's normal Nose: external nose normal, nares normal, septum normal and no nasal discharge Face and sinus: normal facial exam, sinuses nontender (w/ bilateral maxillary fullness to palpation) and face symmetric Mouth: oral mucosae normal, lip normal, tongue normal and oropharynx normal Throat: posterior oropharynx normal, tonsils normal, uvula midline and postnasal drainage (Purulent) Eyes General: appearance normal, both eyes and all related structures Neck Neck: normal visual inspection, full ROM, no meningeal signs, supple and lymphadenopathy (Bilateralanterior cervical lymph node swelling/tender to palpation) Neck mass: No Thyroid: thyroid normal Chest Chest palpation & inspection: normal inspection of the chest Resp Effort & Inspection: normal respiratory effort and able to speak in complete sentences, moist nonproductive cough in office today Auscultation: Bilateral: Clear to Auscultation Cardio Palpation: normal PMI Rate: regular rate Rhythm: regular rhythm Heart Sounds: S1 normal, S2 normal Pulses: radial pulses present GI Inspection: normal to inspection Skin General: no rashes or lesions noted Neuro General: patient alert, patient awake Cognition: normal cognition Speech: speech normal Psych Appearance: grossly normal Mental Status: mental status grossly normal Mood: congruent mood Affect: normal affect Speech and Movement: speech and movement normal Attitude: cooperative Diagnoses Acute maxillary sinusitis, unspecified J01.00 Acute bronchitis, unspecified J20.9 Assessment and Plan Assessment and Plan (1) Acute maxillary sinusitis, unspecified: Status: Acute (2) Acute bronchitis, unspecified: Status: Acute Plan: Augmentin as prescribed today. Supportive measures as instructed today. Follow-up with PCP in 3 to 5 days should symptoms not improve, sooner should symptoms worsen or anyother concerns develop. Patient states acknowledging understanding all the above. Coding Level of Care Code Off vis,est,level 3 Assessment and Plan Assessment and Plan Medications: New amoxicillin-pot clavulanate 875-125 mg 1 TAB PO BID 20 tabs 0RF 01/26/25 0655 s PA PA> Date _ Jovany Horowitz Signature: Date (if applicable) CC: ~ [facility]08-18-2025 Evaluation note* Diagnosis Onset Date Resolution Status Admit Date Anxiety and depression chronic Au 2024 9:43am Diastasis recti chronic December 212024 9:43am Hypertension chronic December 21, 2024 9:43am Type 2 diabetes mellitus chronic December 21, 2024 9:43am Acute bronchitis acute February 11, 2025 2:50pm Elevated blood pressure reading acute February 11 2:50pm Swelling of left lower extremity acute February 11 2:50pm DVT (deep venous thrombosis) acute February 17, 2025 7:52am DVT (deep venous thrombosis) acute February 24, 2025 3:17pm [facility] Work Phone: 1(355) 831-412408-18-2025 Evaluation note* Diagnosis Onset Date Resolution Status Admit Date Anxiety and depression chronic Au 2024 9:43am Diastasis recti chronic December 212024 9:43am Hypertension chronic December 21, 2024 9:43am Type 2 diabetes mellitus chronic December 21, 2024 9:43am Acute bronchitis acute February 11, 2025 2:50pm Elevated blood pressure reading acute February 11 2:50pm Swelling of left lower extremity acute February 11 2:50pm DVT (deep venous thrombosis) acute February 17, 2025 7:52am DVT (deep venous thrombosis) acute February 24, 2025 3:17pm Coronary artery disease acute O ctober 2024 12:32pm DVT (deep venous thrombosis) acute March 04, 2025 12:32pm Elevated blood pressure reading acute March 04 12:32pm [facility] Work Phone: 1(481) 262-153006-09-2025 Evaluation note* Diagnosis Onset Date Resolution Status Admit Date Hyperlipidemia acute October 12, 2024 8:45am Anxiety and depression chronic Ju 2024 8:45am Hypertension chronic October 12 8:45am Type 2 diabetes mellitus chronic October 12, 2024 8:45am [facility] Work Phone: 1([phone]) 474-966206-09-2025 Evaluation note* Diagnosis Onset Date Resolution Status Admit Date Hyperlipidemia acute October 12, 2024 8:45am Anxiety and depression chronic Ju 2024 8:45am Hypertension chronic October 12 8:45am Type 2 diabetes mellitus chronic October 12, 2024 8:45am Anxiety and depression chronic Au 2024 9:43am Diastasis recti chronic December 212024 9:43am Hypertension chronic December 21, 2024 9:43am Type 2 diabetes mellitus chronic December 21, 2024 9:43am [facility] Work Phone: Evaluation noteNo assessment information available [facility] Work Phone: Evaluation note* Diagnosis Onset Date Resolution Status Dyspnea acute Erectile dysfunction acute Hernia acute Hyperlipidemia acute Obesity acute Peripheral edema acute Peripheral neuropathy acute Screening for prostate cancer acute Suspected sleep apnea acute Type 2 diabetes mellitus acu te Wellness examination acute Hypertension chronic [facility] Work Phone: Evaluation note* Diagnosis Type 2 diabetes mellitus without complications (CMS/HCC) Essential (primary) hypertension Unspecified essential hypertension Hyperlipidemia, unspecified documented in this encounter [facility] Work Phone: Hospital Discharge instructionsAmbulatory Orders* Vascular Location: None Selected [facility] Work Phone: Hospital Discharge instructionsAdditional Instructions I have given you a copy of your CAT scan report and your echocardiogram report. On Saturday call your internal medicine physician for follow-up appointment so they can help follow all your specialty appointments. Follow-up with surgery and GI physician for concern for abdominal swelling and possible hernia. Follow-up with the assistant prosecuting attorney for further outpatient testing or stress test or cardiac cath is indicated secondary to the severe coronary artery atherosclerosis disease. Continue taking all medication as prescribed. Continue taking Eliquis as prescribed.[facility] Work Phone: Hospital Discharge instructionsAmbulatory Orders* Cardiology Location: None Selected [facility] Work Phone: Progress note Author Jovany Flowers [facility] Note Date/Time January 26, 2025 6:52am [facility] [address], [address] [place] [address] OFFICE VISIT Date of Service: 01/26/25 MR#: [id number] Acct: [id number] Name: ADEN SAMANIEGO Rep #: [id number] : 1965 Provider: HARDEEP Dowell Age/Sex: 59/M [place] [facility] [place] Status: Signed Intake Vital Signs 12/21/24 10:00 01/26/25 06:42 Height 6 ft 1 in 6 ft 1 in Weight: 299 lb 303 lb BMI 39.4 39.9 BP 162/90 H 142/80 H Blood Pressure Location Lt brachial Lt brachial Position Sitting Sitting Respiration 18 Pulse 67 80 Pulse Source Monitor Temp 97.0 F L 98.2 F Temp Source Temporal Oral Pulse Oximetry (%) 96 95 Oxygen Delivery Method room air room air Intake Visit Reasons: CONGESTION Chief Complaint: Congestion Accompanied by: Self Allergies No Known Allergies Allergy (Verified 01/26/25 06:41) Medications ?Medication ?Instructions ?Recorded ?Confirmed ?Type lancets (Accu-Chek Softclix #100 ea 05/23/23 01/26/25 Rx Lancets) blood sugar diagnostic (Relion #100 ea 05/28/23 Rx Confirm-Micro strips) losartan 100 mg tablet 100 mg PO DAILY 90 days #90 tabs 07/14/24 01/26/25 Rx atorvastatin 40 mg tablet mg PO QDAY 10/12/24 01/26/25 History glimepiride 4 mg tablet 4 mg PO BID 3 months #180 ta bs 10/12/24 01/26/25 Rx metformin 1,000 mg tablet 1,000 mg PO BID 3 months #18 0 tabs 10/12/24 01/26/25 Rx pantoprazole 40 mg tablet,delayed 40 mg PO DAILY #90 t abs 11/30/24 01/26/25 Rx release (Protonix) hydrochlorothiazide 50 mg tablet 50 mg PO DAILY #90 ta bs 12/31/24 01/26/25 Rx amoxicillin 875 mg-potassium 1 tab PO BID #20 tabs 01/26/25 Rx clavulanate 125 mg tablet Nurse's Note: Congestion, coughing, headache from coughing, intermittent fevers. X 2 weeks. PFSH Medical History Anxiety and depression Hernia High cholesterol Back pain Neck pain Limb weakness Diabetes SOB (shortness of breath) Hypertension Surgical History H/O hernia repair H/O left wrist surgery Social History Smoking Status: Never smoker alcohol intake: current alcohol intake frequency: holidays/special occasions only substance use type: does not use what type of physical activity do you participate in: bicycling frequency: 3-4 times per week do you feel safe at home: Yes HPI HPI Chief Complaint: Congestion Details: ADEN SAMANIEGO, is a 59 M who presents to the office today [facility] for approximately 2-week history of progressively worsening facial pressure/congestion with purulent postnasal drip/cough and PHELPS and intermittent fever (? Tmax). No complaints of chills, myalgias, fatigue, runny nose, or nausea/vomiting/diarrhea. No complaints of chest pain/shortness of breath/dyspnea on exertion. No close contacts with similar complaints. No other associated symptoms and no other alleviating/aggravating factors. ROS Const Constitutional: No other (as above) Exam Const General: cooperative, healthy appearing and no acute distress Orientation: alert, awake [facility] Head: normal to inspection Ears: hearing grossly normal bilaterally, external ears normal, TM's normal bilaterally and EAC's normal Nose: external nose normal, nares normal, septum normal and no nasal discharge Face and sinus: normal facial exam, sinuses nontender (w/ bilateral maxillary fullness to palpation) and face symmetric Mouth: oral mucosae normal, lip normal, tongue normal and oropharynx normal Throat: posterior oropharynx normal, tonsils normal, uvula midline and postnasal drainage (Purulent) Eyes General: appearance normal, both eyes and all related structures Neck Neck: normal visual inspection, full ROM, no meningeal signs, supple and lymphadenopathy (Bilateral anterior cervical lymph node swelling/tender to palpation) Neck mass: No Thyroid: thyroid normal Chest Chest palpation & inspection: normal inspection of the chest Resp Effort & Inspection: normal respiratory effort and able to speak in complete sentences, moist nonproductive cough in office today Auscultation: Bilateral: Clear to Auscultation Cardio Palpation: normal PMI Rate: regular rate Rhythm: regular rhythm Heart Sounds: S1 normal, S2 normal Pulses: radial pulses present GI Inspection: normal to inspection Skin General: no rashes or lesions noted Neuro General: patient alert, patient awake Cognition: normal cognition Speech: speech normal Psych Appearance: grossly normal Mental Status: mental status grossly normal Mood: congruent mood Affect: normal affect Speech and Movement: speech and movement normal Attitude: cooperative Diagnoses Acute maxillary sinusitis, unspecified J01.00 Acute bronchitis, unspecified J20.9 Assessment and Plan Assessment and Plan (1) Acute maxillary sinusitis, unspecified: Status: Acute (2) Acute bronchitis, unspecified: Status: Acute Plan: Augmentin as prescribed today. Supportive measures as instructed today. Follow-up with PCP in 3 to 5 days should symptoms not improve, sooner should symptoms worsen or any other concerns develop. Patient states acknowledging understanding all the above. Coding Level of Care Code Off vis,est,level 3 Assessment and Plan Assessment and Plan Medications: New amoxicillin-pot clavulanate 875-125 mg 1 TAB PO BID 20 tabs 0RF 01/26/25 0655 <Electronically signed by Jovany MEIER> Date _ Jovany MEIER Cosigner Signature: Date (if applicable) CC: ~ [facility] Work Phone: Progress note Author Elsa Rodriguez [facility] Note Date/Time February 17, 2025 9 :15am [facility] [address] [place] [address] OFFICE VISIT Date of Service: 02/17/25 MR#: [id number] Acct: [id number] Name: ADEN SAMANIEGO Rep #: [id number] : 1965 Provider: HARDEEP Hoang Age/Sex: 59/M [place] [facility] [place] Status: Signed Intake Vital Signs 02/12/25 08:58 02/17/25 08:15 Height 6 ft 1 in Weight: 305 lb BP 174/92 H Blood Pressure Location Lt brachial Position Sitting Respiration 16 Pulse 73 Pulse Source Monitor Temp 97.8 F Temp Source Temporal Pulse Oximetry (%) 96 Oxygen Delivery Method room air Intake Visit Reasons: Deep vein thrombosis Chief Complaint: establish care Is patient in pain?: No Allergies No Known Allergies Allergy (Verified 02/17/25 08:16) Medications ?Medication ?Instructions ?Recorded ?Confirmed ?Type lancets (Accu-Chek Softclix #100 ea 05/23/23 02/17/25 Rx Lancets) blood sugar diagnostic (Relion #100 ea 05/28/23 Rx Confirm-Micro strips) losartan 100 mg tablet 100 mg PO DAILY 90 days #90 tabs 07/14/24 02/17/25 Rx atorvastatin 40 mg tablet mg PO QDAY 10/12/24 02/17/25 History glimepiride 4 mg tablet 4 mg PO BID 3 months #180 ta bs 10/12/24 02/17/25 Rx metformin 1,000 mg tablet 1,000 mg PO BID 3 months #18 0 tabs 10/12/24 02/17/25 Rx pantoprazole 40 mg tablet,delayed 40 mg PO DAILY #90 t abs 11/30/24 02/17/25 Rx release (Protonix) hydrochlorothiazide 50 mg tablet 50 mg PO DAILY #90 ta bs 12/31/24 02/17/25 Rx apixaban 5 mg tablet (Eliquis) 5 mg PO BID #14 tabs 02/17/25 Rx Have you fallen in the past year?: Yes PFSH Medical History Anxiety and depression Hernia High cholesterol Back pain Neck pain Limb weakness Diabetes SOB (shortness of breath) Hypertension Surgical History H/O hernia repair H/O left wrist surgery Social History Smoking Status: Never smoker alcohol intake: current alcohol intake frequency: holidays/special occasions only substance use type: does not use what type of physical activity do you participate in: bicycling frequency: 3-4 times per week do you feel safe at home: Yes HPI HPI HPI: ADEN SAMANIEGO, is a 59 M who presents to the office today for evaluation and management of extensive LLE DVT and PE. He was seen by his PCP 02/11 for LLE swelling and he was started on Eliquis, stat duplex was completed on 02/12 whichdemonstrated acute L EIV, PFV, CFV, FV, POPV DVT [facility] also [facility] some [facility]. In the the ER 02/12, he had a Chest CTA demonstrating acute PE in the right interlobar pulmonary artery, echocardiogram without evidence of right heart strain; he was hemodynamically stable and saturating well on room air so was discharged home on Eliquis. In the office today, he reports he is tolerating the Eliquis well, has not missed any doses, and has seen some improvement in his LLE edema. He does still have some SOB and CP which he is associating with the PE, not worse just not significantly better yet. He reports the LLE edema started about 3 weeks ago pretty suddenly. He has not had any significant pain, redness, or warmth. He could not identify any preceding triggers such as injury, illness, travel, or otherwise significantly decreased activity. He has not had any prior VTE; he has no known personal or family history of clotting disorders. He reports he is up to date on all age-appropriate cancer screenings and denies other symptoms such as persistent/new cough, difficulty swallowing, change in bowel habits, hematuria, melena, night sweats, excess fatigue. ROS General General: Yes weight change, fatigue and weakness; No appetite, colon cancer or breast cancer HEENT HEENT: No difficulty swallowing, eye injury, eye surgery, swollen glands or hoarseness Endo Endocrine: Yes diabetes mellitus; No thyroid disease, thyroid cancer, Hair loss, heat intolerance or cold intolerance Skin Skin: No rash or changing moles Musc Musculoskeletal: Yes back problems; No arthritis, rheumatoid arthritis, gout or joint pain Cardio Cardiovascular: Yes high blood pressure; No murmur, pacemaker, heart disease, atrial fibrillation, heart attack, heart stent, palpitations, shortness of breath with exertion or chest pain Psych Psychiatric: No anxiety or hearing voices Resp Respiratory: Yes shortness of breath, No sleep apnea, Yes cough, No COPD, No asthma, No emphysema and No wheezing Gastro Gastrointestinal: No abdominal pain, Yes nausea or vomiting, Yes diarrhea, Yes constipation, No blood in stool, Yes acid reflux, No hemorrhoids, No ulcers, No gallbladder problem and No black,tarry stools Venkatesh Hematologic: Yes blood thinners, No blood disorders, No bleeding, No anemia and Yes blood clots Neuro Neurologic: No system reviewed and no additional complaints, except as documented, No as per HPI, No abnormal gait, Yes abnormal hearing, No abnormal movements, No abnormal speech, No behavioral changes, No burning sensations, Yesconfusion, No convulsions, Yes disequilibrium, Yes dizziness, No localized weakness, No frequent falls, Yes headache(s), No lack of coordination, No loss of vision, No memory loss, Yes numbness, Yes other visual disturbances, No radicular pain, Yes restless legs, No sensory deficit, No syncope, Yes tingling,No tremor(s), Yes weakness and No other Exam Const General: cooperative, comfortable and no acute distress Orientation: alert, awake and oriented x3 HENMT Head: normocephalic and atraumatic Ears: hearing grossly normal bilaterally and external ears normal Nose: external nose normal Eyes General: appearance normal, both eyes and all related structures Neck Neck: normal visual inspection and trachea midline Resp Effort & Inspection: normal respiratory effort, able to speak in complete sentences, no grunting, not labored, no respiratory distress and no retractions Cardio Rate: regular rate Rhythm: regular rhythm Skin General: no rashes or lesions noted Trauma: no lacerations or abrasions Wounds: no wounds Neuro General: moves all extremities and no focal motor deficits Speech: speech normal Extremities Lower Extremity Edema: +2: Left Psych Appearance: grossly normal Affect: normal affect Speech and Movement: speech and movement normal Attitude: cooperative Coding Level of Care Code Off vis,new,level 4 Extra Time Spent Extra Time Spent Extra Time Spent: G2211 Diagnoses DVT (deep venous thrombosis) I82.409 Additional Codes Extra Time Spent - Extra Time Spent: G2211 (G2211) Time Spent (min) 57 Assessment and Plan Assessment and Plan (1) DVT (deep venous thrombosis): Status: Acute Plan: He has initial unprovoked extensive acute LLE DVT and PE. We discussed his recent ultrasound and CTA findings, the distribution and extent of his DVT, and options for management. Anticoagulation is the primary treatment; in his case given the extent of thrombus burden and unprovoked nature would consider a minimum of 6 months of therapeutic anticoagulation and then would consider further prophylactic anticoagulation thereafter. In addition to anticoagulation, the extent and proximal nature of his LLE DVT makes him a reasonable candidate for thrombectomy; we discussed thrombectomy procedure details including risks, benefits, need for perioperative hospitalization for heparin bridging, and recovery. After discussion, plan to have him return to the office to reassess in1 week. If his symptoms continue to make significant improvement then reasonableto continue with anticoagulation alone. If he fails to see continued improvement, then may pursue LLE thrombectomy. With respect to his pulmonary emboli, these are smaller and more distal so are not suitable targets for embolectomy. I also strongly recommend utilizing compression to help manage the edema. Applied CRISTINA wrap in the office today and I recommend he apply this daily at home, putting it on in the morning and removing before bed. I also recommend legelevation at all times of rest. In his Chest CTA, significant coronary artery disease was noted incidentally. Referral placed to cardiology for further evaluation/recommendations in this regard. Return to the office in 1 week, call sooner with concerns. We also discussed redflag signs/symptoms which should lead him to present to the ER. Orders: Referrals Cardiology I25.10 - Atherosclerotic heart disease of [place] coronary artery without angina pectoris Clinical Quality Measures Falls Risk Screening/Assistive Devices Have you fallen in the past year?: Yes 02/17/25 1617 <Electronically signed by Elsa MEIER> Date _ Elsa MEIER 02/17/25 676<Electronically signed by Robinson Jones MD> Cosigner Signature: Date (if applicable) Robinson Jones MD CC: Dr. Kana Avelar MD; HARDEEP Leon ~ [facility] Work Phone: Reason for referral (narrative)No reason for referral information [facility] Work Phone: Summary Purpose Family History No Family History Records FoundNo Family History Records FoundNo Family History Records FoundNo Family History Records FoundNo Family History Records Found Advance Directives Advance Directive Response Recorded Date/ Time Living Will No August 18, 2020 6:23am Power of Traffic Technician No August 18 6:23am Advance Directive Response Recorded Date/ Time Living Will No August 18, 2020 5:23am Power of Traffic Technician No August 18 5:23am Advance Directive Response Recorded Date/ Time Do you have a Healthcare Power of Traffic Technician? No February 12, 2025 9:27am Advance Directive Response Recorded Date/ Time Do you have a Healthcare Power of Traffic Technician? No February 12, 2025 8:27am Chief Complaint and Reason for Visit Chief Complaint Admit Date 3 M FU October 12, 2024 8:45a m 3 M FU December 21, 2024 9: 43am Reason for Visit Admit Date Hyperlipidemia October 12, 2024 8:45a m Anxiety and depression October 12, 2024 8: 45am Hypertension October 12, 2024 8:45a m Type 2 diabetes mellitus October 12, 2024 8:45am Chief Complaint pcr covid test trave l Chief Complaint Chills (without feve r) Chief Complaint Chills (without feve r) [employer] [employer] [facility] SENT Reason for Visit Dyspnea Erectile dysfunction Hernia Hyperlipidemia Obesity Peripheral edema Peripheral neuropathy Screening for prostate cancer Suspected sleep apnea Type 2 diabetes mellitus Wellness examination Hypertension Chief Complaint [employer]-PPW SENT Dyspnea, unspecified Reason for Visit Dyspnea Erectile dysfunction Hernia Hyperlipidemia Obesity Peripheral edema Peripheral neuropathy Screening for prostate cancer Suspected sleep apnea Type 2 diabetes mellitus Wellness examination Hypertension Chief Complaint Admit Date 3 M FU October 12, 2024 8:45a m Chief Complaint Admit Date 3 M FU October 12, 2024 8:45a m 3 M FU December 21, 2024 9: 43am CONGESTION January 26, 2025 6:30am Reason for Visit Admit Date Hyperlipidemia October 12, 2024 8:45a m Anxiety and depression October 12, 2024 8: 45am Hypertension October 12, 2024 8:45a m Type 2 diabetes mellitus October 12, 2024 8:45am Anxiety and depression December 21, 2024 9:43am Diastasis recti December 21, 2024 9: 43am Hypertension December 21, 2024 9: 43am Type 2 diabetes mellitus December 21 9:43am Chief Complaint Admit Date 3 M FU December 21, 2024 9: 43am CONGESTION January 26, 2025 6:30am Left leg swelling. Right knee pain. 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 February 12, 2025 7:46am DVT February 12, 2025 8 :57am Deep vein thrombosis February 17, 2025 7:52am DVT F/U February 24, 2025 3 :17pm Reason for Visit Admit Date Anxiety and depression December 21, 2024 9:43am Diastasis recti December 21, 2024 9: 43am Hypertension December 21, 2024 9: 43am Type 2 diabetes mellitus December 21 9:43am Acute bronchitis February 11, 2025 2: 50pm Elevated blood pressure reading February 11, 2025 2:50pm Swelling of left lower extremity February 11, 2025 2:50pm DVT (deep venous thrombosis) February 7:52am DVT (deep venous thrombosis) February 3:17pm Chief Complaint Admit Date 3 M FU December 21, 2024 9: 43am CONGESTION January 26, 2025 6:30am Left leg swelling. Right knee pain. 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 February 12, 2025 7:46am DVT October 10th, 2025 8 :57am Deep vein thrombosis February 17, 2025 7:52am DVT F/U February 24, 2025 3 :17pm FOLLOW UP BLOOD CLOTS AND MED REFILL Oct litzy 2024 12:32pm Reason for Visit Admit Date Anxiety and depression December 21, 2024 9:43am Diastasis recti December 21, 2024 9: 43am Hypertension December 21, 2024 9: 43am Type 2 diabetes mellitus December 21 9:43am Acute bronchitis February 11, 2025 2: 50pm Elevated blood pressure reading February 11, 2025 2:50pm Swelling of left lower extremity February 11, 2025 2:50pm DVT (deep venous thrombosis) February 7:52am DVT (deep venous thrombosis) February 3:17pm Coronary artery disease March 04 12:32pm DVT (deep venous thrombosis) February 12:32pm Elevated blood pressure reading March 04, 2025 12:32pm Reason for Referral Specialty Diagnoses / Procedures Referred By Pedro alanis Referred To Contact Radiology Diagnoses Type 2 diabetes mellitus without complications ([facility]) Essential (primary) hypertension Hyperlipidemia, unspecified Procedures CT cardiac scoring wo IV contrast [id number] [place] [address] Referral ID Status Reason Start Date Expiration Date Visits Requested Visits Authorized [id number] Authorized Perform Procedure 06/18/2023 06/17/2024 1 1 Additional Source Comments (unrecognized sect ion and content) No Status Records FoundNo Status Records FoundNo Status Records FoundNo Status Records FoundNo Status Records Found INFORMATION SOURCE (unrecogn ized section and content) DATE CREATED AUTHOR 03/16/2019 [facility] ([place]) DATE CREATED AUTHOR AUTHOR'S ORGANIZ ATION 12/27/2019 [facility] DATE CREATED AUTHOR AUTHOR'S ORGANIZ ATION 01/04/2020 [facility] DATE CREATED AUTHOR AUTHOR'S ORGANIZ ATION 07/03/2023 [facility] DATE CREATED AUTHOR AUTHOR'S ORGANIZ ATION 03/13/2025 [facility] Goals (unrecognized section and content) Goals may be documented in a n alternate sectionGoals may be documented in an alternate sectionGoals may be documented in an alternate sectionGoals may be documented in an alternate sectionGoals may be documented in an alternate sectionGoals may be documented in an alternate sectionGoals may be documented in an alternate sectionGoals may be documented in an alternate sectionGoals may be documented in an alternate sectionGoals may be documented in an alternate sectionGoals may be documented in an alternate sectionGoals may be documented in an alternate sectionGoals may be documented in an alternate sectionGoals may be documented in an alternate section Care Teams (unrecognized sec tion and content) Team Status: Active Member Role Status Dates Dr. Gagan Chin MD Family Provider Active Dr. Gagan Chin MD Primary Care Provider Active Team Status: Inactive Member Role Status Dates Dr. Gagan Chin MD Primary Care Provider, Attending Provider Active Team Status: Inactive Member Role Status Dates Dr. Gagan Chin MD Primary Care Provi francesco, Attending Provider, Referring Provider Active Team Status: Active Member Role Status Dates Dr. Gagan Chin MD Family Provider Active MELANI Mcduffie Primary Care Provider Active Team Status: Inactive Member Role Status Dates Dr. Gagan Chin MD Primary Care Provider, Referring Provider Active MELANI Mcduffie Attending Provider Active Team Status: Inactive Member Role Status Dates MELANI Mcduffie Primary Care Provid er, Attending Provider, Referring Provider Active Team Status: Active Member Role Status Dates MELANI Mcduffie Primary Care Provider Active Dr. Dietre Bradford MD Attending Provider Activ e Primary Teaching Assistant Relationship Specialty Start Date End Date Cb Hardwick, BOTTLING MACHINE OPERATOR-RUBBER COMPOUNDER MIXER [address] [place] [id number] PCP - General 06/19/23 Team Status: Active Member Role Status Dates Dr. Gagan Chin MD Family Provider Active Dr. Kana Avelar MD Primary Care Provider Active Team Status: Inactive Member Role Status Dates Dr. Kana Avelar MD Primary Care Provider Active Start: October 12, 2024 End: October 12, 2024 Dr. Kana Avelar MD Attending Provider Active Start: October 12, 2024 End: October 12, 2024 Dr. Kana Avelar MD Referring Provider Active Start: October 12, 2024 End: October 12, 2024 Team Status: Active Member Role Status Dates Dr. Kana Avelar MD Primary Care Provider Active Start: October 12, 2024 Dr. Kana Avelar MD Attending Provider Active Start: October 12, 2024 Dr. Kana Avelar MD Referring Provider Active Start: October 12, 2024 Team Status: Active Member Role/Relationship Status Dates Dr. Gagan Chin MD Family Provider Active Dr. Kana Avelar MD Primary Care Provider Active Team Status: Inactive Member Role/Relationship Status Dates Dr. Kana Avelar MD Primary Care Provider Active Start: October 12, 2024 End: October 12, 2024 Dr. Kana Avelar MD Attending Provider Active Start: October 12, 2024 End: October 12, 2024 Dr. Kana Avelar MD Referring Provider Active Start: October 12, 2024 End: October 12, 2024 Team Status: Inactive Member Role/Relationship Status Dates Dr. Kana Avelar MD Primary Care Provider Active Start: October 12, 2024 End: October 12, 2024 Dr. Kana Avelar MD Attending Provider Active Start: October 12, 2024 End: October 12, 2024 Dr. Kana Avelar MD Referring Provider Active Start: October 12, 2024 End: October 12, 2024 Team Status: Inactive Member Role/Relationship Status Dates Dr. Kana Avelar MD Primary Care Provider Active Start: December 21, 2024 End: December 21, 2024 Dr. Kana Avelar MD Attending Provider Active Start: December 21, 2024 End: December 21, 2024 Dr. Kana Avelar MD Referring Provider Active Start: December 21, 2024 End: December 21, 2024 Team Status: Active Member Role/Relationship Status Dates Dr. Gagan Chin MD Primary care physician Active Dr. Kana Avelar MD Primary care physician Activ e Team Status: Inactive Member Role/Relationship Status Dates Dr. Kana Avelar MD Primary care physician Activ e Start: October 12, 2024 End: October 12, 2024 Dr. Kana Avelar MD Attending physician Active Start: October 12, 2024 End: October 12, 2024 Dr. Kana Avelar MD Referring Provider Active Start: October 12, 2024 End: October 12, 2024 Team Status: Inactive Member Role/Relationship Status Dates Dr. Kana Avelar MD Primary care physician Activ e Start: October 12, 2024 End: October 12, 2024 Dr. Kana Avelar MD Attending physician Active Start: October 12, 2024 End: October 12, 2024 Dr. Kana Avelar MD Referring Provider Active Start: October 12, 2024 End: October 12, 2024 Team Status: Inactive Member Role/Relationship Status Dates Dr. Kana Avelar MD Primary care physician Activ e Start: December 21, 2024 End: December 21, 2024 Dr. Kana Avelar MD Attending physician Active Start: December 21, 2024 End: December 21, 2024 Dr. Kana Avelar MD Referring Provider Active Start: December 21, 2024 End: December 21, 2024 Team Status: Inactive Member Role/Relationship Status Dates Dr. Kana Avelar MD Primary care physician Activ e Start: January 26, 2025 End: January 26, 2025 Dr. Kana Avelar MD Referring Provider Active Start: January 26, 2025 End: January 26, 2025 Jovany Flowers PA, PA Attending physician Active Start: January 26, 2025 End: January 26, 2025 Team Status: Active Member Role/Relationship Status Dates Dr. Kana Avelar MD Primary care physician Activ e Team Status: Inactive Member Role/Relationship Status Dates Dr. Kana Avelar MD Primary care physician Activ e Start: December 21, 2024 End: December 21, 2024 Dr. Kana Avelar MD Attending physician Active Start: December 21, 2024 End: December 21, 2024 Dr. Kana Avelar MD Referring Provider Active Start: December 21, 2024 End: December 21, 2024 Team Status: Inactive Member Role/Relationship Status Dates Dr. Kana Avelar MD Primary care physician Activ e Start: January 26, 2025 End: January 26, 2025 Dr. Kana Avelar MD Referring Provider Active Start: January 26, 2025 End: January 26, 2025 Jovany MEIER PA Attending physician Active Start: January 26, 2025 End: January 26, 2025 Team Status: Inactive Member Role/Relationship Status Dates Dr. Kana Avelar MD Primary care physician Activ e Start: February 11, 2025 End: February 11, 2025 Dr. Kana Avelar MD Referring Provider Active Start: February 11, 2025 End: February 11, 2025 Russell MEIER PA Attending physician Active S tart: February 11, 2025 End: February 11, 2025 Team Status: Active Member Role/Relationship Status Dates Dr. Kana Avelar MD Primary care physician Activ e Start: February 11, 2025 Russell MEIER PA Attending physician Active S tart: February 11, 2025 Russell Gomes PA, PA Referring Provider Active St art: February 11, 2025 Team Status: Active Member Role/Relationship Status Dates Dr. Kana Avelar MD Primary care physician Activ e Start: February 12, 2025 Russell MEIER PA Attending physician Active S tart: February 12, 2025 Russell MEIER, PA Referring Provider Active St art: February 12, 2025 Team Status: Inactive Member Role/Relationship Status Dates Dr. Kana Avelar MD Primary care physician Activ e Start: February 12, 2025 End: February 12, 2025 Dr. Barrie Delgado DO Attending physician Active Start: February 12, 2025 End: February 12, 2025 Dr. Barrie Delgado DO Emergency Departmen t Physician Active Start: February 12, 2025 End: February 12, 2025 Team Status: Active Member Role/Relationship Status Dates Dr. Kana Avelar MD Primary care physician Activ e Start: February 12, 2025 Dr. Julia Mcwilliams MD Attending physician Active Start: February 12, 2025 Team Status: Inactive Member Role/Relationship Status Dates Dr. Kana Avelar MD Primary care physician Activ e Start: February 17, 2025 End: February 17, 2025 Dr. Kana Avelar MD Referring Provider Active Start: February 17, 2025 End: February 17, 2025 HARDEEP Hoang Attending physician Active Sta rt: February 17, 2025 End: February 17, 2025 Team Status: Inactive Member Role/Relationship Status Dates Dr. Kana Avelar MD Primary care physician Activ e Start: February 24, 2025 End: February 24, 2025 Dr. Kana Avelar MD Referring Provider Active Start: February 24, 2025 End: February 24, 2025 Dr. Robinson Jones MD Attending physician Active Start: February 24, 2025 End: February 24, 2025 Team Status: Inactive Member Role/Relationship Status Dates Dr. Kana Avelar MD Primary care physician Activ e Start: February 11, 2025 End: February 11, 2025 Russell MEIER PA Attending physician Active S tart: February 11, 2025 End: February 11, 2025 Russell MEIER, PA Referring Provider Active St art: February 11, 2025 End: February 11, 2025 Team Status: Inactive Member Role/Relationship Status Dates Dr. Kana Avelar MD Primary care physician Activ e Start: February 12, 2025 End: February 12, 2025 Russell MEIER PA Attending physician Active S tart: February 12, 2025 End: February 12, 2025 Russell Gomes PA, PA Referring Provider Active St art: February 12, 2025 End: February 12, 2025 Team Status: Inactive Member Role/Relationship Status Dates Dr. Kana Avelar MD Primary care physician Activ e Start: March 04, 2025 End: March 04, 2025 Dr. Kana Avelar MD Referring Provider Active Start: March 04, 2025 End: March 04, 2025 MELANI Coughlin Attending physician Active Start: March 04, 2025 End: March 04, 2025 Reason for Visit (unrecogniz ed section and content) Specialty Diagnoses / Procedures Referred By Contac t Referred To Contact Radiology Diagnoses Type 2 diabetes mellitus without complications ([facility]) Essential (primary) hypertension Hyperlipidemia, unspecified Procedures CT cardiac scoring wo IV contrast [facility] [address] [place] [address] Referral ID Status Reason Start Date Expiration Date Visits Requested Visits Authorized [id number] Authorized Perform Procedure 06/18/2023 06/17/2024 1 1 FOR RECORDS PERTAINING TO PATIENTS WHO ARE [...] BE BASED ON THE PRIMARY CLINICAL RECORDS. [email or web address] provides no warranty or guarantee of the accuracy or completeness of information in this document.
--- NOTE | 2025-04-20 19:36 | STRESSREP ---
Stress Test Report Pharmacologic myocardial perfusion stress test. 59-year-old man with a history of known coronary artery disease. Resting EKG demonstrates normal sinus with a rate of 71 bpm. Resting blood pressure is 176/108 mmHg. 0.4 mg of regadenoson was infused per usual protocol followed by rapid intravenous saline flush injection. Continuous EKG monitoring was performed. The maximum heart rate was 85 bpm which was 53% of max impacted heart rate the maximum workload was 1 metabolic equivalent. At rest there were no ST or T wave changes noted to suggest ischemia and at peak infusion nonspecific ST changes were noted which did not meet the criteria for ischemia. No clinical angina is noted. The final blood pressure was 164/104 mmHg. Myocardial perfusion protocol. 14.9 mCi of technetium 99m sestamibi was injected at rest. 0.4 mg of regadenoson was infused per usual protocol. At peak infusion 45 mCi of technetium 99m sestamibi was injected stress images were obtained stress and rest images were reconstructed and compared in the short axis vertical long and horizontal long axis. Gated images were also obtained. Perfusion SPECT analysis: Review of the stress images demonstrate normal uptake of tracer noted in all areas of the myocardium. The resting images similar demonstrated normal uptake of tracer noted in all areas of the myocardium. No areas of reversibility are noted to suggest ischemia and no previous infarct is noted. Gated SPECT analysis: The gated ejection fraction is 54%. Conclusion: Normal pharmacologic myocardial perfusion stress test. Preserved ejection fraction. Resting hypertension present
== END | disposition home or self-care (01) ==
PROVIDERS: PCP Internal Medicine; Referring Provider Internal Medicine Cardiovascular Disease; Visit Provider Internal Medicine Cardiovascular Disease
DX: I25.10 Atherosclerotic heart disease of native coronary artery without angina pectoris (principal)
CPT/HCPCS: 78452; 93017; A9500; A4216; J2785